=== PATIENT | male | born 1945 | race Caucasian/White ===

== ENCOUNTER 2017-02-15 07:38 | Inpatient (IN) | payer MEDICARE ==
[~2017-02-15] VITALS: Ht 177.8 cm; Wt 57.6 kg
--- NOTE | ~2017-02-15 | PR ---
[place], [place] PROGRESS NOTE NAME: KAVITHA MICHAUD [facility] #: [id number] UNIT #: [id number] ROOM: 515 DOCTOR: FLYNN RiveraALEXA BIRTHDATE: [birth year] DOS: 02/16/2017 WOUND CARE PROGRESS NOTE SUBJECTIVE: The patient reports no acute events overnight. He did have some discomfort of his left heel last night, post-debridement had to receive the pain pill, but he essentially does not have any pain in his heel today. He does, however, have a significant ankle pain and knee pain which is chronic and has not really changed in any way. No fevers or chills are noted. His vitals are stable; temperature is 97.5, pulse is 64, respirations 18, blood pressure is 124/70. The patient is his heel right on the bed. I did explain to him yesterday about the fact that we need to try to keep pressure off of this, but yet he has his heel left sitting in the chair across the room. He is in the middle of completing a bone scan, there are no reports pending. The dressing was removed. The wound looks essentially same. There still is some necrotic tissue in the base of the wound. The erythema that was around the wound yesterday in the foot has definitely improved from today, the swelling has gone down quite a bit and there is really no pain or discomfort or purulence. There is no odor present. Labs today show white count of 5.9, platelets of 254. ESR is only 27. He did not have his bone scan read yet. He did have a lower extremity ultrasound, which was read and is definitely showing femoropopliteal disease. He does have some flow in the posterior tibial artery and dorsalis pedis. They suggested to do a CT angiogram for better information. ASSESSMENT AND PLAN: Diabetic foot ulcer of the left heel with peripheral vascular disease. We will go ahead and order the CT angiogram as suggested per Radiology for further definition of the vascular status. In the meantime, we are waiting for the bone scan results to come back. Hopefully, there is no osteomyelitis. He should follow up in Wound Care for further wound care. If he has significant vascular disease on his CT angiogram, we way want to recommend a second opinion from another vascular surgeon. In the meantime, we will continue with TheraHoney and Bactroban; however, if we do not see much improvement in the wound base, I may want to consider changing to Santyl. The patient should follow up in the Wound Clinic once medically stable. [place], [place] PROGRESS NOTE NAME: KAVITHA MICHAUD UNIT #: [id number] ROOM: [facility] DOCTOR: ALEXA PRUETT M.D. BIRTHDATE: [birth year] ALEXA PRUETT MD CM:MARIA LUISA 01 02 ALEXA PRUETT M.D. 02/16/172302 interface
--- NOTE | ~2017-02-15 | CON ---
[place], [place] REPORT OF CONSULTATION NAME: KAVITHA MICHAUD [facility] #: [id number] UNIT #: [id number] ROOM: 515 DOCTOR: FLYNN RiveraALEXA BIRTHDATE: [birth year] DOS: 02/15/2017 HISTORY OF PRESENT ILLNESS: This is a 71-year-old male who presented to the Emergency Room Department for a diabetic foot ulcer. He was sent over by his PCP secondary to concern of possible infection. Apparently, the patient noticed 2 separate areas in the bottom of his foot that started approximately 2 weeks ago. Initially was just a dark black spot according to the patient and the family and then that look like there was a blister. The patient attempted to pop the blister on his own. However, the area just apparently got bigger. It really has not draining anything. He and his have been putting bag balm on the wound and keeping it covered. He was seen today by his PCP and sent over to the ER for concern of possible infection. PAST MEDICAL HISTORY: Significant for the following: He has had a history of abnormal EKG, coronary artery disease, diabetes mellitus, hypertension, hyperlipidemia, ischemic cardiomyopathy, neuropathy, history of osteomyelitis of the sternum, status post CABG. He has had a chronic wound of his chest, which did eventually heal, but it took a long time to heal. His diabetes is uncontrolled. He has restless legs syndrome and congestive heart failure. He is status post back surgery, heart valve surgery, right knee replacement. Apparently recent revascularization of the left lower extremity. He said he has had a bypass sounds like femoral, popliteal, but I do not have the records about that was just done approximately 6 months ago. He was seen by ____. According to the patient, the vascular surgeon was not pleased with the postoperative results. There were also reports patient that the vascular surgeon said that he would lose his foot someday. SOCIAL HISTORY: He is a former smoker. He has quit 14 years ago. However, he does chew tobacco. He denies any drug use. He drinks socially. FAMILY HISTORY: Unknown for the father. Mother of pneumonia. ALLERGIES: No known drug allergies. MEDICATIONS: His medications from home are aspirin 81 daily, furosemide 20 mg p.o. daily, gabapentin 83 25/100 p.o. t.i.d., insulin Lantus 20 units subq b.i.d., lispro b.i.d., lisinopril 2.5 p.o. daily, metoprolol 50 p.o. every 12 hours, potassium 20 mEq daily, ropinirole 3 mg p.o. t.i.d. and simvastatin 10 mg p.o. q.8h. REVIEW OF SYSTEMS: He does not really have any pain or discomfort with the left heel. He has significant neuropathy. He has a lot of problems with weakness in his legs and difficulty ambulating secondary to weakness as well as getting tired easily. Ankles giveout quite easily. He has to walk with a cane. He denies any chest pain, shortness of breath, nausea, vomiting or diarrhea. His sugars are up and down. When I asked specific numbers as to what he told me. However, we do know that he has had uncontrolled diabetes in the past. No fevers or chills are noted. PHYSICAL EXAMINATION: [place], [place] REPORT OF CONSULTATION NAME: KAVITHA MICHAUD UNIT #: [id number] ROOM: [facility] DOCTOR: ALEXA PRUETT M.D. BIRTHDATE: [birth year] VITAL SIGNS: Stable. Temperature is 97.5, pulse 66, respirations 18, blood pressure is 179/81. GENERAL: This is an elderly male, quite thin. Appears about his stated age, in no acute distress. Oropharynx is clear. HEENT: Extraocular movements are intact. Sclerae are anicteric. LUNGS: Clear to auscultation. CARDIOVASCULAR: S1, S2 regular rate and rhythm. ABDOMEN: Soft and nontender. EXTREMITIES: He has really no edema and no calf tenderness, so he has a two wounds located on the left heel, one is more in the medial aspect of the heel and one is more on the lateral aspect of the heel on the plantar lateral surface. He does have positive posterior tibial pulse, but it was somewhat difficult to find. I did not feel the dorsalis pedis. His toes are slightly cool. There is good capillary refill. He has two wounds that are located on the heel as stated above. There is a large amount of devitalized tissue and it does appear that there is communication between these 2 separate areas. The length estimation by me would be approximately 2.5-3 in length x 4.8 x 0.1 cm. There is large amount of necrotic tissue, fibrin slough is present in it. There is a yellow soft fibrin slough and large amount of devitalized epidermidis just hanging there. There is some redness associated with the foot, it is slightly pink in comparison to the right foot and it is not overtly tender and there is no purulence. LABORATORY DATA: Show white count of 6.5, a hemoglobin of 11, platelets of 263, neutrophils are 77%. Chem-7 shows a sodium of 137, potassium 4.7, BUN 15, creatinine 0.74, glucose was 155. LFTs are normal, an albumin is 3.5. X-ray was done, which shows a generalized low bone mineral density, vascular calcification, soft tissue swelling and superficial wound noted on the plantar suffers of the left heel. No bony erosion and no foreign bodies appreciable. Due to the presence of devitalized tissue. A debridement was recommended. The patient was agreeable to this. The area was cleansed, prepped with Cetacaine spray. Devitalized tissue was removed with forceps, scissors and a curette as well as a scalpel. There is really very minimal bleeding, it was only devitalized tissue and that was removed. This was a selective only minimal bleeding as stated above. Post-debridement measurements are 3.5 x 6 cm approximately by 0.1 to 0.15 in depth, although there was really no purulence or exudate to culture, so culture was not obtained today. ASSESSMENT AND PLAN: Diabetic foot ulcer, unstageable in a patient with poorly controlled diabetes and vascular disease. We will go ahead and repeat the arterial Dopplers. He did have Dopplers done a year ago. This was prior to the bypass. ABIs were fairly decent 0.88 on the left, 0.92 on the right. There was an area of significant stenosis seen at the popliteal trifurcation on the left, but major runoff vessels remains patent to the ankles and both the legs, so that was the impression, however, that was prior to him getting revascularize. So, in any case, we will go ahead and obtain the repeat arterial ultrasound at this time. We will go ahead and use TheraHoney and Bactroban for local wound care and use bulky dressing. Encourage offloading with pillows and heel lift devices as well as a post-surgical shoe. The patient is being treated with IV [place], [place] REPORT OF CONSULTATION NAME: KAVITHA MICHAUD UNIT #: [id number] ROOM: [facility] DOCTOR: FLYNN Rivera,ALEXA BIRTHDATE: [birth year] antibiotics empirically of order ESR and CRP for tomorrow as well as a hemoglobin A1c to see what his glucose control is. His x-ray did not show any osteomyelitis. The depth of the wound still is unknown. There is still some necrotic tissue present on the base of the wound. Post-debridement, so I would go ahead and order a bone scan as well for further evaluation. ALEXA PRUETT MD CM:CONSTR:REPORT OF CONSULTATION 1643 02/16/17 1514 interface
[~2017-02-15 07:38] MED LIST: ASPIRIN81 M1 PO; AVPAK AZITHROM250 MG PO; DIFLUCAN100 MG PO; FUROSEMIDE40 MG PO; GABAPENTIN300 MG PO; GUAIFENESIN600 MG PO; HUMALOG100 U/ML SC; K-TAB20 MEQ PO; LANTUS100 U/ML SC; LISINOPRIL10 MG; LISINOPRIL5 MG PO; LOPRESSOR50 M1 PO; LOVASTATIN20 MG PO; MOBIC15 MG; NEURONTIN300 MG PO; PRILOSEC20 MG PO; REQUIP3 M1 PO; REQUIP3 MG; SIMVASTATIN10 MG PO; TOPROL XL50 M1 PO; ZESTRIL20 MG PO
[2017-02-15 07:47] VITALS: BP 154/71
[2017-02-15 08:25] LABS: BASO % 0.3 % (0.0-1.0); EOS # 0.2 10*3/uL (0.0-0.4); EOS % 2.9 % (1.0-4.0); HEMATOCRIT 34.8 % (42.0-52.0); HEMOGLOBIN 11.1 g/dl (14.0-18.0); LYMPH # 0.8 10*3/uL (1.3-4.4); LYMPH % 12.8 % (27.0-41.0); MEAN CORPUSCULAR HGB 28.4 pg (27.0-31.0); MEAN CORPUSCULAR HGB CONC 31.9 g/dl (33.0-37.0); MEAN PLATELET VOLUME 9.8 fl (9.6-12.3); MONO # 0.4 10*3/uL (0.1-1.0); MONO % 6.6 % (3.0-9.0); NEUT % 77.1 % (47.0-73.0); PLATELET COUNT AUTOMATED 263 10*3/uL (130-400); RED BLOOD COUNT 3.91 10*6/uL (4.50-5.90); RED CELL DISTRI WIDTH 12.6 % (0-14.5); WHITE BLOOD COUNT 6.5 10*3/uL (4.8-10.8)
[2017-02-15 08:40] LABS: ALBUMIN 3.5 gm/dl (3.1-4.5); ALKALINE PHOSPHATASE 114 U/L (45-117); BILIRUBIN, TOTAL 0.3 mg/dl (0.2-1.0); BUN 15 mg/dl (7-24); CARBON DIOXIDE 30 mmol/L (21-32); CHLORIDE 103 mmol/L (98-107); EST GLOM FILT AFRICAN AMERICAN > 60 ml/min; GLUCOSE 155 mg/dL (65-99); POTASSIUM 4.7 mmol/L (3.5-5.1); SGOT/AST 16 IU/L (3-35); SGPT/ALT 15 U/L (12-78); SODIUM 137 mmol/L (136-145); TOTAL PROTEIN 7.1 gm/dL (6.4-8.2)
[2017-02-15 10:49] VITALS: BP 155/68
[2017-02-15] MEDS ORDERED: FUROSEMIDE20 M1 PO (11:04)
[2017-02-15] MEDS ORDERED: LISINOPRIL2.5 MG PO (11:05)
[2017-02-15] MEDS ORDERED: LANTUS SOL100 UNIT/1 SC (11:16)
[2017-02-15 12:00] VITALS: BP 179/81
[2017-02-15 16:00] VITALS: BP 176/84
[2017-02-15 20:00] VITALS: BP 120/66
[2017-02-16] VITALS: BP 140/59
[2017-02-16 05:36] LABS: BUN 15 mg/dl (7-24); CARBON DIOXIDE 29 mmol/L (21-32); CHLORIDE 102 mmol/L (98-107); EST GLOM FILT AFRICAN AMERICAN > 60 ml/min; GLUCOSE 338 mg/dL (65-99); PHOSPHOROUS 3.2 mg/dL (2.5-4.9); POTASSIUM 5.5 mmol/L (3.5-5.1); SODIUM 135 mmol/L (136-145)
[2017-02-16 06:05] LABS: BASO # 0.1 10*3/uL (0.0-0.1); EOS # 0.2 10*3/uL (0.0-0.4); HEMOGLOBIN 10.6 g/dl (14.0-18.0); LYMPH # 0.8 10*3/uL (1.3-4.4); LYMPH % 13.1 % (27.0-41.0); MEAN CELL VOLUME 87.5 fl (80.0-94.0); MEAN CORPUSCULAR HGB 28.1 pg (27.0-31.0); MEAN CORPUSCULAR HGB CONC 32.1 g/dl (33.0-37.0); MEAN PLATELET VOLUME 10.4 fl (9.6-12.3); MONO # 0.4 10*3/uL (0.1-1.0); MONO % 6.2 % (3.0-9.0); NEUT # 4.5 10*3/uL (2.3-7.9); NEUT % 75.4 % (47.0-73.0); PLATELET COUNT AUTOMATED 254 10*3/uL (130-400); RED BLOOD COUNT 3.77 10*6/uL (4.50-5.90); RED CELL DISTRI WIDTH 12.4 % (0-14.5); WHITE BLOOD COUNT 5.9 10*3/uL (4.8-10.8)
[2017-02-16 06:36] LABS: HEMOGLOBIN A1c 10.1 % (4.8-5.6)
[2017-02-16 07:29] LABS: FOLIC ACID 12.02 ng/mL (>5.38); VITAMIN D, 25-HYDROXY 25.1 ng/mL (30-100)
[2017-02-16 08:00] VITALS: BP 126/63
[2017-02-16 12:00] VITALS: BP 132/64
[2017-02-16 16:00] VITALS: BP 124/70
[2017-02-16] MEDS ORDERED: Vitamin D PO (16:49)
[2017-02-16] MEDS ORDERED: DOXYCYCLINE100 M3 PO (16:49)
[2017-02-16] MEDS ORDERED: Bactroban Oint22 GM T (16:49)
== END 2017-02-16 20:27 | disposition home or self-care (01) | DRG 623 ==
LOC: ED 07:38 → EDHOLD 10:23 → 5E 10:23
PROVIDERS: Emergency Medicine; Internal Medicine
PROC: 0JBR0ZZ Excision of Left Foot Subcutaneous Tissue and Fascia, Open Approach (ICD-10-PCS; principal; 2017-02-15)
DX: E11.621 Type 2 diabetes mellitus with foot ulcer (principal); L03.116 Cellulitis of left lower limb; L97.529 Non-pressure chronic ulcer of other part of left foot with unspecified severity; I11.0 Hypertensive heart disease with heart failure; I50.22 Chronic systolic (congestive) heart failure; E11.40 Type 2 diabetes mellitus with diabetic neuropathy, unspecified; E11.51 Type 2 diabetes mellitus with diabetic peripheral angiopathy without gangrene; I25.5 Ischemic cardiomyopathy; D64.9 Anemia, unspecified; I25.10 Atherosclerotic heart disease of native coronary artery without angina pectoris; E55.9 Vitamin D deficiency, unspecified; E11.65 Type 2 diabetes mellitus with hyperglycemia; G25.81 Restless legs syndrome; E78.5 Hyperlipidemia, unspecified; Z96.651 Presence of right artificial knee joint; Z87.891 Personal history of nicotine dependence; Z79.4 Long term (current) use of insulin; Z79.82 Long term (current) use of aspirin; Z79.899 Other long term (current) drug therapy; Z95.2 Presence of prosthetic heart valve; Z95.1 Presence of aortocoronary bypass graft; Z83.6 Family history of other diseases of the respiratory system

== ENCOUNTER → 2017-02-21 | Outpatient (CLI) | payer MEDICARE ==
[~2017-02-21] MED LIST changes: +Bactroban Oint22 GM T; +DOXYCYCLINE100 M3 PO; +FUROSEMIDE20 M1 PO; +LANTUS SOL100 UNIT/1 SC; +LISINOPRIL2.5 MG PO; +Vitamin D PO
--- NOTE | ~2017-02-21 | PR ---
[place], [place] PROGRESS NOTE NAME: KAVITHA MICHAUD [facility] #: [id number] UNIT #: [id number] ROOM: DOCTOR: FLYNN RiveraALEXA BIRTHDATE: [birth year] DOS: 02/21/2017 CHIEF COMPLAINT: The patient comes in for an ulcer of his left heel. HISTORY OF PRESENT ILLNESS: This is a 71-year-old male with poorly-controlled diabetes who has had a diabetic foot ulcer for approximately 3 weeks now. He was actually admitted last week for a possible infection that was worked up while he was here. He did have a large amount of necrotic tissue on his left heel, it was not dry eschar, but soft fibrin slough. He underwent a bone scan, which was essentially negative. He also underwent arterial studies. He is status post revascularization of the left leg. He had a recent bypass and was supposed to follow up with his vascular surgeon within 6 months' time. He does report that the vascular surgeon was not pleased with the results. Our studies did show some flow to the foot; however, there was monophasic waveforms and severe vascular disease noted. The patient comes in for followup in the Wound Care Clinic. He has been using TheraHoney to the open areas as well as Bactroban ointment. He reports less pain overall than when he had in the hospital. He was sent home with 3 days of oral antibiotics. He was treated with IV antibiotics while he was here for a possible infection. He says his sugars remain high at times and very variable, which is chronic and has not really changed in anyway. His hemoglobin A1c remains fairly uncontrolled with a hemoglobin A1c of 10.1. He does not smoke; however, he chew tobacco on occasion. He has no other specific complaints. No fevers or chills, nausea, vomiting or problems with the dressings. He is using a postop shoe at home, but came in wearing regular tennis shoes today. PHYSICAL EXAMINATION: VITAL SIGNS: Temperature is 98.2, pulse of 78, respirations 18, blood pressure is 146/66. The wound is measuring 3.4 x 4.1 x 0.1. It actually does seem somewhat improved from the last time I saw it. There is still a large amount of necrotic tissue, fibrin slough mostly that is soft. There is no dry eschar at this point. There is no purulence or tenderness or cellulitis noted. A selective debridement was done today. The tissue removed was devitalized tissue only. This occurred with scalpel, forceps, and a curette. There was a moderate amount of bleeding that was controlled with pressure and silver nitrate. Post-debridement measurements are 3.5 x 5 x 0.2. The patient tolerated the debridement well. Cetacaine spray was used for topical anesthesia. ASSESSMENT AND PLAN: Chronic diabetic foot ulcer. I would still classify it is as unstageable at this point since we cannot really see the base yet. There was no evidence of osteomyelitis on imaging studies. At this point, he does have severe peripheral vascular disease. I recommend that he follow up with Vascular. He states he will go ahead and call ____. I would also like to try and obtain any records from his office if possible. In the meantime, we will continue with wound care. I would like to switch to Santyl if his insurance will approve it. If not, we can stick with TheraHoney, but I would like to try the Santyl first and then utilize Bactroban as well as a bulky dressing, a postop shoe. The next time he is here we can see if we can set him up with the home care coordinator to see if we can find him a better more stable postop shoe [place], [place] PROGRESS NOTE NAME: KAVITHA MICHAUD [facility] #: [id number] UNIT #: [id number] ROOM: DOCTOR: ALEXA PRUETT M.D. BIRTHDATE: [birth year] to try. ALEXA PRUETT MD CM:MARIA LUISA 11 9 ALEXA PRUETT M.D. 02/22/17209 interface
== END | disposition home or self-care (01) ==
LOC: WOUNDCARE 10:02
DX: E11.621 Type 2 diabetes mellitus with foot ulcer (principal); L97.421 Non-pressure chronic ulcer of left heel and midfoot limited to breakdown of skin; E11.51 Type 2 diabetes mellitus with diabetic peripheral angiopathy without gangrene

== ENCOUNTER → 2017-02-28 | Outpatient (CLI) | payer MEDICARE ==
--- NOTE | ~2017-02-28 | PR ---
[place], [place] PROGRESS NOTE NAME: KAVITHA MICHAUD [facility] #: [id number] UNIT #: [id number] ROOM: DOCTOR: FLYNN RiveraALEXA BIRTHDATE: [birth year] DOS: 02/28/2017 CHIEF COMPLAINT: Followup of diabetic foot ulcer. HISTORY OF PRESENT ILLNESS: A 71-year-old male with uncontrolled diabetes and a chronic ulcer of the left heel for approximately 4 weeks now. He has been coming to the Wound Clinic for 1 week now. He was seen last week and started on Santyl and Bactroban. He was able to get that midweek and has been using it daily. No fevers or chills. He only has pain or discomfort with the heel when he walks on it. Otherwise, no change in pain or discomfort. He has had revascularization done on the left leg. However, we still have not gotten the reports from the surgeon, so are awaiting medical records regarding previous vascular procedures. He does have known vascular disease as well. No other specific complaints are noted. PHYSICAL EXAMINATION: VITAL SIGNS: Temperature is 98.2, pulse is 74, respirations 18, and blood pressure is 120/70. EXTREMITIES: The wound is measuring 3.2 x 4.8 x 0.1, it is definitely is much improved overall clinically in appearance from last week. The measurements seem to be off a little bit. However, overall it does look bisque cleaner and smaller. No sign of infection and there is still some moderate fibrin slough present in the base of the wound. A selective debridement was done to remove fibrin slough and hyperkeratotic tissue around the wound. Forceps scissors and a curette was utilized. There was minimal bleeding, controlled with pressure. Post-debridement measurements are as follows, 2.2 x 4.8 x 0.1. The patient tolerated the procedure well. Cetacaine spray was used for topical anesthesia. Timeout was conducted prior to the start of the procedure. ASSESSMENT AND PLAN: Chronic diabetic foot ulcer of the left heel, which clinically seems to be improving. We will go ahead and continue with the Santyl and Bactroban for now. Hopefully, we will be able to change to a collagen in the near future, but he definitely still needs collagenase at this point. We will set him up for diabetic shoes and offloading boot for diabetic foot ulcer. Hopefully, this can be arranged next week. He does have vascular disease. I did recommend to try to refer him to a different vascular specialist as he states that he was told by his previous doctor that he would need an amputation at some point and he was not happy the the vascular surgeon's recommendations, so I did suggest to try to get a second opinion, but the patient wants to discuss this with his primary care physician. In the meantime, we will continue with the current dressing and follow up in one week. [place], [place] PROGRESS NOTE [facility]UD [id number] UNIT #: [id number] ROOM: DOCTOR: ALEXA PRUETT M.D. BIRTHDATE: [birth year] ALEXA PRUETT MD CM:MARIA LUISA 1030 1 ALEXA PRUETT M.D. 03/01/17 0432 interface
== END ==
LOC: WOUNDCARE 03:41
DX: E11.621 Type 2 diabetes mellitus with foot ulcer (principal); L97.422 Non-pressure chronic ulcer of left heel and midfoot with fat layer exposed; E11.51 Type 2 diabetes mellitus with diabetic peripheral angiopathy without gangrene

== ENCOUNTER → 2017-03-08 | Outpatient (CLI) | payer MEDICARE ==
--- NOTE | ~2017-03-08 | PR ---
[place], [place] PROGRESS NOTE NAME: KAVITHA MICHAUD [facility] #: [id number] UNIT #: [id number] ROOM: DOCTOR: FLYNN RiveraALEXA BIRTHDATE: [birth year] DOS: 03/08/2017 SUBJECTIVE: The patient comes in for a wound care visit. CHIEF COMPLAINT: Ulcer of his heel. HISTORY OF PRESENT ILLNESS: This is a 71-year-old male with poorly controlled diabetes, who comes in for wound care visit. He has a chronic ulcer of his left heel that he has had for approximately 5 weeks now. He has been coming to the wound clinic for 2 weeks. We have been using Santyl and Bactroban for wound care. He has vascular disease, has had revascularization but continues to have evidence of femoropopliteal disease on arterial Dopplers. I have recommended for him to follow up with Vascular; however, he wants to discuss this with his PCP whom he will see today. He has seen Dr. Moody in the past, has procedures done by him and we still do not have the reports from their office yet. In any case, the patient comes in stating that he thinks the wound is looking better. His helps him with his dressings; however, he does state that he has been trying to walk on the outside of his foot on the forefoot and it seems to be causing some pain and discomfort when he is walking. Otherwise, he uses his postop shoes trying to put less pressure on his heel. OBJECTIVE: GENERAL: No fevers or chills are noted. VITAL SIGNS: Temperature is 97.8, pulse is 72, respirations are 18 and blood pressure is 142/78. SKIN: The wound is measuring 3.2 x 4.5 x 0.1. It looks much wheat cleaner. There is still fibrin and slough present, but overall it is definitely looking much improved. There is no surrounding cellulitis, odor or purulence to suggest infection. There is some maceration noted around the periwound area. A debridement was done, this is selective, to remove fibrin and slough. This was accomplished with a curette, forceps and scissors. There was minimal bleeding, controlled with pressure. Post-debridement measurements are as follows 3.2 x 4.6 x 0.15. There is still fibrin and slough present in the base of the wound, but overall it is looking much better. Cetacaine spray was used for topical anesthesia. Timeout was conducted prior to the start of the procedure. ASSESSMENT AND PLAN: Diabetic foot ulcer of the left heel, complicated by vascular disease. I would like to continue with the Santyl and use Maxorb to help dry it up a little bit more as there is maceration noted. He is to change the dressing every day. Skin prep will be applied to the periwound. I would still like him to see Vascular; however, he wants to discuss this with his PCP. I did suggest for him to see an tear down worker regarding an offloading boot and he wishes to talk to his PCP about diabetic shoes. Followup is in one week. [place], [place] PROGRESS NOTE NAME: KEILYKAVITHA Pedro [facility] #: [id number] UNIT #: [id number] ROOM: DOCTOR: ALEXA PRUETT M.D. BIRTHDATE: [birth year] ALEXA PRUETT MD CM:MARIA LUISA [id number] ALEXA PRUETT M.D. 03/09/17 1320 interface
== END | disposition home or self-care (01) ==
LOC: WOUNDCARE 03:13
DX: E11.621 Type 2 diabetes mellitus with foot ulcer (principal); L97.422 Non-pressure chronic ulcer of left heel and midfoot with fat layer exposed; E11.51 Type 2 diabetes mellitus with diabetic peripheral angiopathy without gangrene

== ENCOUNTER → 2017-03-14 | Outpatient (CLI) | payer MEDICARE ==
--- NOTE | ~2017-03-14 | PR ---
[place], [place] PROGRESS NOTE NAME: KAVITHA MICHAUD [facility] #: [id number] UNIT #: [id number] ROOM: DOCTOR: FLYNN RiveraALEXA BIRTHDATE: [birth year] DOS: 03/14/2017 CHIEF COMPLAINT: Followup of heel ulcer. HISTORY OF PRESENT ILLNESS: This is a 71-year-old male with poorly controlled diabetes, who comes to the Wound Clinic for followup wound care visit. He had an unstageable ulcer of his left heel that was present for 6-7 weeks now. He has been coming to the wound clinic. We have been using Santyl to the wound base. He has vascular disease and I had recommended for him to follow up with his vascular specialist due to continued femoropopliteal disease that is hemodynamically significant. He is status post revascularization of the left leg. However, the patient says he really does not want to see vascular doctor this time. He does not want any kind of procedures to be done on his left leg. He comes in today stating that he has some discomfort of the leg and he has chronic pain of his left leg he says but he is walking quite a bit on his foot at home. I did advise him to try to stay off of it as much as possible. His helps him with the wound care. He has no other specific complaints. No fevers or chills. OBJECTIVE: VITAL SIGNS: Stable. Temperature is 97.6, pulse 64, respirations 18, blood pressure is 132/64. The wound is definitely measuring smaller at 2.7 cm x 4.6 cm x 0.1 cm. There is much less fibrin and slough overall. It still has some fibrin slough, but overall it is definitely coke still cleaner. There is no sign of infection. There is no purulence or tenderness. There is still some devitalized callus around the wound, but overall it is definitely looking better. Debridement was done to remove fibrin, slough and subcutaneous tissue. There was minimal bleeding that was controlled with pressure, forceps, scissors, and a curette were utilized. Cetacaine spray was used for topical anesthesia. Post-debridement measurements are 2 cm x 4.7 cm x 0.2 cm. ASSESSMENT AND PLAN: Left heel ulceration that is definitely stable and seems to be improving. I would like to continue the Santyl. I am hoping for at least 1 more week and then hopefully by then will have it changed to a collagen dressing. He still some maceration around it, but I would like to make sure that they were cutting the Maxorb to fit the wound and not just laying it over that because that would explain why it continues to be macerated and also have him try to keep off of it as much as possible. He does have a postop shoe for this. The patient was asking about hyperbaric oxygen treatment, but at this time he does not meet criteria to go in to the chamber. Followup is in one week. [place], [place] PROGRESS NOTE [facility]: [facility]UD [facility] [id number] UNIT #: [id number] ROOM: DOCTOR: ALEXA PRUETT M.D. BIRTHDATE: [birth year] ALEXA PRUETT MD CM:MARIA LUISA 1018 6 ALEXA PRUETT M.D. 03/15/17516 interface
== END | disposition home or self-care (01) ==
LOC: WOUNDCARE 01:51
DX: E11.621 Type 2 diabetes mellitus with foot ulcer (principal); L97.422 Non-pressure chronic ulcer of left heel and midfoot with fat layer exposed; E11.51 Type 2 diabetes mellitus with diabetic peripheral angiopathy without gangrene; L84 Corns and callosities

== ENCOUNTER → 2017-03-23 | Outpatient (CLI) | payer MEDICARE | END | disposition home or self-care (01) | LOC: WOUNDCARE 02:01 | DX: E11.621 Type 2 diabetes mellitus with foot ulcer (principal); L97.422 Non-pressure chronic ulcer of left heel and midfoot with fat layer exposed; E11.51 Type 2 diabetes mellitus with diabetic peripheral angiopathy without gangrene; I11.0 Hypertensive heart disease with heart failure; I50.9 Heart failure, unspecified; I25.10 Atherosclerotic heart disease of native coronary artery without angina pectoris; Z87.891 Personal history of nicotine dependence ==

== ENCOUNTER → 2017-04-01 | Outpatient (CLI) | payer MEDICARE | END | disposition home or self-care (01) | LOC: WOUNDCARE 03-29 14:29 | DX: E11.621 Type 2 diabetes mellitus with foot ulcer (principal); L97.422 Non-pressure chronic ulcer of left heel and midfoot with fat layer exposed; E11.51 Type 2 diabetes mellitus with diabetic peripheral angiopathy without gangrene; I25.10 Atherosclerotic heart disease of native coronary artery without angina pectoris; I11.0 Hypertensive heart disease with heart failure; I50.9 Heart failure, unspecified; Z87.891 Personal history of nicotine dependence ==

== ENCOUNTER → 2017-04-13 | Outpatient (CLI) | payer MEDICARE | END | disposition home or self-care (01) | LOC: WOUNDCARE 03:58 | DX: E11.621 Type 2 diabetes mellitus with foot ulcer (principal); L97.421 Non-pressure chronic ulcer of left heel and midfoot limited to breakdown of skin; E11.51 Type 2 diabetes mellitus with diabetic peripheral angiopathy without gangrene; I11.0 Hypertensive heart disease with heart failure; I50.9 Heart failure, unspecified; I25.10 Atherosclerotic heart disease of native coronary artery without angina pectoris; Z87.891 Personal history of nicotine dependence ==

== ENCOUNTER → 2017-04-20 | Outpatient (CLI) | payer MEDICARE | END | disposition home or self-care (01) | LOC: WOUNDCARE 01:07 | DX: E11.621 Type 2 diabetes mellitus with foot ulcer (principal); L97.422 Non-pressure chronic ulcer of left heel and midfoot with fat layer exposed; E11.51 Type 2 diabetes mellitus with diabetic peripheral angiopathy without gangrene; I11.0 Hypertensive heart disease with heart failure; I50.9 Heart failure, unspecified; I25.10 Atherosclerotic heart disease of native coronary artery without angina pectoris; Z87.891 Personal history of nicotine dependence ==

== ENCOUNTER → 2017-04-27 | Outpatient (CLI) | payer MEDICARE | END | disposition home or self-care (01) | LOC: WOUNDCARE 04:33 | DX: E11.621 Type 2 diabetes mellitus with foot ulcer (principal); L97.422 Non-pressure chronic ulcer of left heel and midfoot with fat layer exposed; E11.51 Type 2 diabetes mellitus with diabetic peripheral angiopathy without gangrene; I11.0 Hypertensive heart disease with heart failure; I50.9 Heart failure, unspecified; I25.10 Atherosclerotic heart disease of native coronary artery without angina pectoris; Z87.891 Personal history of nicotine dependence ==

== ENCOUNTER → 2017-05-11 | Outpatient (CLI) | payer MEDICARE | END | disposition home or self-care (01) | LOC: WOUNDCARE 04:25 | DX: E11.621 Type 2 diabetes mellitus with foot ulcer (principal); L97.422 Non-pressure chronic ulcer of left heel and midfoot with fat layer exposed; E11.51 Type 2 diabetes mellitus with diabetic peripheral angiopathy without gangrene; I11.0 Hypertensive heart disease with heart failure; I50.9 Heart failure, unspecified; I25.10 Atherosclerotic heart disease of native coronary artery without angina pectoris; Z87.891 Personal history of nicotine dependence ==

== ENCOUNTER → 2017-05-18 | Outpatient (CLI) | payer MEDICARE | END | disposition home or self-care (01) | LOC: WOUNDCARE 01:04 | DX: E11.621 Type 2 diabetes mellitus with foot ulcer (principal); L97.422 Non-pressure chronic ulcer of left heel and midfoot with fat layer exposed; E11.51 Type 2 diabetes mellitus with diabetic peripheral angiopathy without gangrene; I11.0 Hypertensive heart disease with heart failure; I50.9 Heart failure, unspecified; I25.10 Atherosclerotic heart disease of native coronary artery without angina pectoris; Z87.891 Personal history of nicotine dependence ==

== ENCOUNTER → 2017-05-23 | Outpatient (CLI) | payer MEDICARE | END | disposition home or self-care (01) | LOC: RAD 14:13 | DX: J90 Pleural effusion, not elsewhere classified (principal); J44.9 Chronic obstructive pulmonary disease, unspecified; J84.10 Pulmonary fibrosis, unspecified; I25.10 Atherosclerotic heart disease of native coronary artery without angina pectoris; I10 Essential (primary) hypertension; J18.9 Pneumonia, unspecified organism; Z87.891 Personal history of nicotine dependence; Z95.1 Presence of aortocoronary bypass graft ==

== ENCOUNTER → 2017-05-25 | Outpatient (CLI) | payer MEDICARE | END | disposition home or self-care (01) | LOC: WOUNDCARE 02:17 | DX: E11.621 Type 2 diabetes mellitus with foot ulcer (principal); L97.422 Non-pressure chronic ulcer of left heel and midfoot with fat layer exposed; E11.51 Type 2 diabetes mellitus with diabetic peripheral angiopathy without gangrene; Z87.891 Personal history of nicotine dependence ==

== ENCOUNTER → 2017-06-03 | Outpatient (CLI) | payer MEDICARE | END | disposition home or self-care (01) | LOC: WOUNDCARE 02:14 | DX: E11.621 Type 2 diabetes mellitus with foot ulcer (principal); L97.422 Non-pressure chronic ulcer of left heel and midfoot with fat layer exposed; E11.51 Type 2 diabetes mellitus with diabetic peripheral angiopathy without gangrene; I25.10 Atherosclerotic heart disease of native coronary artery without angina pectoris; I11.0 Hypertensive heart disease with heart failure; I50.9 Heart failure, unspecified; Z87.891 Personal history of nicotine dependence ==

== ENCOUNTER → 2017-06-08 | Outpatient (CLI) | payer MEDICARE | END | disposition home or self-care (01) | LOC: WOUNDCARE 02:25 | DX: E11.621 Type 2 diabetes mellitus with foot ulcer (principal); L97.422 Non-pressure chronic ulcer of left heel and midfoot with fat layer exposed; E11.51 Type 2 diabetes mellitus with diabetic peripheral angiopathy without gangrene; I25.10 Atherosclerotic heart disease of native coronary artery without angina pectoris; I11.0 Hypertensive heart disease with heart failure; I50.9 Heart failure, unspecified; Z87.891 Personal history of nicotine dependence ==

== ENCOUNTER → 2017-06-15 | Outpatient (CLI) | payer MEDICARE | END | disposition home or self-care (01) | LOC: WOUNDCARE 01:52 | DX: E11.621 Type 2 diabetes mellitus with foot ulcer (principal); L97.422 Non-pressure chronic ulcer of left heel and midfoot with fat layer exposed; E11.51 Type 2 diabetes mellitus with diabetic peripheral angiopathy without gangrene; I11.0 Hypertensive heart disease with heart failure; I50.9 Heart failure, unspecified; I25.10 Atherosclerotic heart disease of native coronary artery without angina pectoris; Z87.891 Personal history of nicotine dependence ==

== ENCOUNTER → 2017-07-13 | Outpatient (CLI) | payer MEDICARE | END | disposition home or self-care (01) | LOC: WOUNDCARE 02:16 | DX: E11.621 Type 2 diabetes mellitus with foot ulcer (principal); L97.422 Non-pressure chronic ulcer of left heel and midfoot with fat layer exposed; E11.51 Type 2 diabetes mellitus with diabetic peripheral angiopathy without gangrene; I11.0 Hypertensive heart disease with heart failure; I50.9 Heart failure, unspecified; I25.10 Atherosclerotic heart disease of native coronary artery without angina pectoris; Z87.891 Personal history of nicotine dependence ==

== ENCOUNTER → 2017-07-20 | Outpatient (CLI) | payer MEDICARE | LOC: WOUNDCARE 01:49 | DX: E11.621 Type 2 diabetes mellitus with foot ulcer (principal); L97.422 Non-pressure chronic ulcer of left heel and midfoot with fat layer exposed; E11.51 Type 2 diabetes mellitus with diabetic peripheral angiopathy without gangrene; I11.0 Hypertensive heart disease with heart failure; I50.9 Heart failure, unspecified; I25.10 Atherosclerotic heart disease of native coronary artery without angina pectoris; Z87.891 Personal history of nicotine dependence ==

== ENCOUNTER → 2017-07-27 | Outpatient (CLI) | payer MEDICARE | END | disposition home or self-care (01) | LOC: WOUNDCARE 03:05 | DX: E11.621 Type 2 diabetes mellitus with foot ulcer (principal); L97.422 Non-pressure chronic ulcer of left heel and midfoot with fat layer exposed; E11.51 Type 2 diabetes mellitus with diabetic peripheral angiopathy without gangrene; I11.0 Hypertensive heart disease with heart failure; I50.9 Heart failure, unspecified; I25.10 Atherosclerotic heart disease of native coronary artery without angina pectoris; Z95.2 Presence of prosthetic heart valve; Z87.891 Personal history of nicotine dependence ==

== ENCOUNTER → 2017-08-03 | Outpatient (CLI) | payer MEDICARE | END | disposition home or self-care (01) | LOC: WOUNDCARE 00:46 | DX: E11.621 Type 2 diabetes mellitus with foot ulcer (principal); L97.422 Non-pressure chronic ulcer of left heel and midfoot with fat layer exposed; E11.51 Type 2 diabetes mellitus with diabetic peripheral angiopathy without gangrene; L84 Corns and callosities; I11.0 Hypertensive heart disease with heart failure; I50.9 Heart failure, unspecified; I25.10 Atherosclerotic heart disease of native coronary artery without angina pectoris; Z95.2 Presence of prosthetic heart valve; Z87.891 Personal history of nicotine dependence ==

== ENCOUNTER → 2017-08-17 | Outpatient (CLI) | payer MEDICARE | END | disposition home or self-care (01) | LOC: WOUNDCARE 01:02 | DX: E11.621 Type 2 diabetes mellitus with foot ulcer (principal); L97.422 Non-pressure chronic ulcer of left heel and midfoot with fat layer exposed; E11.51 Type 2 diabetes mellitus with diabetic peripheral angiopathy without gangrene; I11.0 Hypertensive heart disease with heart failure; I50.9 Heart failure, unspecified; I25.10 Atherosclerotic heart disease of native coronary artery without angina pectoris; Z95.2 Presence of prosthetic heart valve; Z87.891 Personal history of nicotine dependence ==

== ENCOUNTER → 2017-09-20 | Outpatient (CLI) | payer MEDICARE | END | disposition home or self-care (01) | LOC: RAD 07:48 | DX: M50.321 Other cervical disc degeneration at C4-C5 level (principal); M50.322 Other cervical disc degeneration at C5-C6 level; M50.922 Unspecified cervical disc disorder at C5-C6 level; M79.642 Pain in left hand ==

== ENCOUNTER → 2017-10-24 | Outpatient (CLI) | payer MEDICARE | END | disposition home or self-care (01) | LOC: WOUNDCARE 10:29 | DX: E11.621 Type 2 diabetes mellitus with foot ulcer (principal); L97.421 Non-pressure chronic ulcer of left heel and midfoot limited to breakdown of skin; I11.0 Hypertensive heart disease with heart failure; I50.9 Heart failure, unspecified; I25.10 Atherosclerotic heart disease of native coronary artery without angina pectoris; Z87.891 Personal history of nicotine dependence ==

== ENCOUNTER 2017-10-27 11:04 | Inpatient (IN) | payer MEDICARE ==
[~2017-10-27] VITALS: Ht 177.8 cm; Wt 65.8 kg
--- NOTE | ~2017-10-27 | CON ---
[place], [place] REPORT OF CONSULTATION NAME: KAVITHA MICHAUD [facility] #: [id number] UNIT #: [id number] ROOM: 515 DOCTOR: CRIS SIN DPM BIRTHDATE: [birth year] DOS: HISTORY OF PRESENT ILLNESS: This patient is seen as consulted for evaluation of a left heel ulcer. The patient saw Dr. Crabtree yesterday in the office and was found to have a full thickness abscess of the heel. This was incised and drained in the office and he was subsequently sent to the hospital for admission of the antibiotics. He states he does get some pain at times in the heel. He has a history of PAD and according to the patient, had a bypass done by Dr. Steven. Denies fever or chills at this time. PAST MEDICAL HISTORY: Positive for cardiovascular disease, diabetes mellitus, hypertension, hyperglycemia, hyperlipidemia, ischemic cardiomyopathy, neuropathy, history of diabetic foot ulcer, normocytic anemia, osteomyelitis of the sternum, PAD status post bypass, restless leg syndrome, CHF, vitamin D insufficiency. ALLERGIES: No known drug allergies. CURRENT MEDICATIONS: Vitamin D, K-Dur, Zestril, Lantus, Lasix, Lovenox, Protonix, vancomycin, Zocor, Requip, Toprol, hydrocodone, doxycycline, Neurontin. PHYSICAL EXAMINATION: Upon lower extremity physical examination, DP and PT pedal pulses are decreased. There is diminished hair growth. Skin is thin and shiny. Skin temperature is warm at the toes. Sensation is diminished in the forefoot bilaterally. Muscle strength appears full without any deficits. On the plantar posterior portion of the left heel, there appears to be what was probably previously a large blistered area full thickness with the resulting 2 ulcerations in the area. These wounds are full thickness with no purulent drainage or malodor at this time. Minimal localized edema and erythema. No fluctuance or signs of abscess. X-ray was negative for osteomyelitis. His arterial Doppler showed status post left distal superficial femoral posterior tibial graft is patent; however, elevated systolic velocities consistent with stenosis. ASSESSMENT: Peripheral artery disease status post bypass; diabetic ulcer, left heel with improving infection. PLAN: Consult is performed. Continue with local wound care to the area, continue with IV antibiotics. Continue offloading. No further surgery or procedures needed on the left heel. We will do wound care and antibiotics. The patient will most likely do well over the next few days to the point where he could be discharged. He will need to follow up with Dr. Steven upon discharge to evaluate the graft on the left lower extremity. Thank you for the opportunity to take part in care of this patient. [place], [place] REPORT OF CONSULTATION NAME: KAVITHA MICHAUD UNIT #: [id number] ROOM: [facility] DOCTOR: CRIS SIN DPM BIRTHDATE: [birth year] CRIS SIN DPM CM:CONSTR:REPORT OF CONSULTATION 1223 10/28/17 1654 interface
--- NOTE | ~2017-10-27 | PR ---
[place], [place] PROGRESS NOTE NAME: KAVITHA MICHAUD [facility] #: [id number] UNIT #: [id number] ROOM: 515 DOCTOR: SEVERO OG DPM BIRTHDATE: [birth year] DOS: 10/29/2017 SUBJECTIVE: The patient was seen for followup of post-abscess, left heel. The patient is having no pain to the area at this time. OBJECTIVE: Upon removal of the dressing, the post-abscess left heel has granulated well, dramatic improvement in 2 days from current treatment plan. No further signs of infection or abscess. The ulcerative site post incision and drainage is granulating significantly at this time without complication. I reviewed the radiographs myself and the initial radiographs revealed a report stating possible soft tissue gas noted, however, that clinically correlated with the large abscess site that I had opened at the office. The second radiograph set did indeed reveal no soft tissue gas noted. We see no clinical signs of osteomyelitis and the patient is healing very well at this time. Again, his vascular studies were abnormal and the patient is seeing Dr. Contreras on Tuesday. ASSESSMENT: Post-incision and drainage, left heel with diabetic ulceration. PLAN: Evaluation and management. Continue local wound care. The patient can be discharged from Podiatry standpoint. The patient is seeing Dr. Contreras on Tuesday for vascular consultation and I will follow with the patient at my office on . Home p.o. antibiotics per Infectious Disease and again the patient can be discharged from my standpoint. SVEERO OG DPM CM:PNTRANS [id number] SEVERO OG DPM 10/29/17 1058 interface
[2017-10-27 11:07] VITALS: BP 105/49
[2017-10-27 12:09] LABS: BASO % 0.4 % (0.0-1.0); EOS # 0.2 10*3/uL (0.0-0.4); HEMATOCRIT 38.4 % (42.0-52.0); HEMOGLOBIN 12.3 g/dl (14.0-18.0); LYMPH # 0.9 10*3/uL (1.3-4.4); LYMPH % 12.7 % (27.0-41.0); MEAN CELL VOLUME 87.3 fl (80.0-94.0); MEAN PLATELET VOLUME 11.4 fl (9.6-12.3); MONO # 0.5 10*3/uL (0.1-1.0); MONO % 7.3 % (3.0-9.0); NEUT # 5.7 10*3/uL (2.3-7.9); NEUT % 77.2 % (47.0-73.0); PLATELET COUNT AUTOMATED 245 10*3/uL (130-400); RED CELL DISTRI WIDTH 13.4 % (0-14.5); WHITE BLOOD COUNT 7.4 10*3/uL (4.8-10.8)
[2017-10-27 12:18] LABS: ACT PARTIAL THROMBO TIME 25.5 SECONDS (20.8-31.5); INTERNATIONAL NORM RATIO 0.9 (2.0-3.5)
[2017-10-27 12:23] LABS: ALBUMIN 3.6 gm/dl (3.1-4.5); ALKALINE PHOSPHATASE 136 U/L (45-117); BUN 20 mg/dl (7-24); CHLORIDE 102 mmol/L (98-107); CREATININE 0.95 mg/dL (0.70-1.30); POTASSIUM 4.1 mmol/L (3.5-5.1); SGOT/AST 16 IU/L (3-35); SGPT/ALT 18 U/L (12-78); SODIUM 139 mmol/L (136-145); TOTAL PROTEIN 7.2 gm/dL (6.4-8.2)
[2017-10-27 12:59] VITALS: BP 100/52
[2017-10-27 15:36] VITALS: BP 122/67
[2017-10-27 15:45] VITALS: BP 105/49
[2017-10-27] MEDS ORDERED: FUROSEMIDE40 MG PO (18:53)
[2017-10-27] MEDS ORDERED: TRESIBA FL100 UNIT/1 SC (18:55)
[2017-10-27 20:00] VITALS: BP 133/52
[2017-10-28] VITALS: BP 108/54
[2017-10-28 07:00] LABS: BASO % 0.8 % (0.0-1.0); EOS # 0.4 10*3/uL (0.0-0.4); EOS % 8.6 % (1.0-4.0); HEMATOCRIT 39.5 % (42.0-52.0); HEMOGLOBIN 12.2 g/dl (14.0-18.0); LYMPH # 0.9 10*3/uL (1.3-4.4); MEAN CELL VOLUME 89.2 fl (80.0-94.0); MEAN CORPUSCULAR HGB 27.5 pg (27.0-31.0); MEAN CORPUSCULAR HGB CONC 30.9 g/dl (33.0-37.0); MEAN PLATELET VOLUME 10.5 fl (9.6-12.3); MONO # 0.4 10*3/uL (0.1-1.0); MONO % 8.6 % (3.0-9.0); NEUT % 63.6 % (47.0-73.0); PLATELET COUNT AUTOMATED 221 10*3/uL (130-400); RED BLOOD COUNT 4.43 10*6/uL (4.50-5.90); RED CELL DISTRI WIDTH 13.3 % (0-14.5); WHITE BLOOD COUNT 4.8 10*3/uL (4.8-10.8)
[2017-10-28 07:07] LABS: ALBUMIN 3.4 gm/dl (3.1-4.5); ALKALINE PHOSPHATASE 124 U/L (45-117); BUN 21 mg/dl (7-24); CHLORIDE 103 mmol/L (98-107); CHOLESTEROL 134 mg/dL (<200); HDL CHOLESTEROL 68 mg/dl (40-60); LDL CHOLESTEROL 52 mg/dL (9-159); POTASSIUM 4.2 mmol/L (3.5-5.1); SGOT/AST 18 IU/L (3-35); SGPT/ALT 19 U/L (12-78); SODIUM 139 mmol/L (136-145); TRIGLYCERIDES 72 mg/dl (<150); VLDL CHOLESTEROL 14 mg/dL (6-40)
[2017-10-28 07:08] LABS: FREE T4 1.19 ng/dl (0.76-1.46)
[2017-10-28 08:00] VITALS: BP 136/74
[2017-10-28 11:07] LABS: VITAMIN D, 25-HYDROXY 13.5 ng/mL (30-100)
[2017-10-28 12:00] VITALS: BP 135/60
[2017-10-28 16:00] VITALS: BP 117/53
[2017-10-28 20:00] VITALS: BP 115/71
[2017-10-29 00:15] VITALS: BP 151/60
[2017-10-29 08:00] VITALS: BP 158/68
[2017-10-29] MEDS ORDERED: VITAMIN D-32000 UNI1 PO (11:06)
[2017-10-29] MEDS ORDERED: CEFDINIR300 MG PO (11:06)
[2017-10-29] MEDS ORDERED: DOXYCYCLINE100 M3 PO (11:06)
[2017-10-29] MEDS ORDERED: TRESIBA FL100 UNIT/1 SC (11:06)
== END 2017-10-29 11:30 | disposition home or self-care (01) | DRG 638 ==
LOC: ED 11:04 → 5E 14:26 → EDHOLD 14:26 → 5E 14:48
PROVIDERS: Physician Assistant; Registered Nurse
DX: E11.621 Type 2 diabetes mellitus with foot ulcer (principal); E87.2 Acidosis; L97.429 Non-pressure chronic ulcer of left heel and midfoot with unspecified severity; E11.42 Type 2 diabetes mellitus with diabetic polyneuropathy; E11.51 Type 2 diabetes mellitus with diabetic peripheral angiopathy without gangrene; L03.116 Cellulitis of left lower limb; I50.20 Unspecified systolic (congestive) heart failure; L02.611 Cutaneous abscess of right foot; I25.5 Ischemic cardiomyopathy; Z96.651 Presence of right artificial knee joint; I11.0 Hypertensive heart disease with heart failure; I25.10 Atherosclerotic heart disease of native coronary artery without angina pectoris; G25.81 Restless legs syndrome; D64.9 Anemia, unspecified; E78.5 Hyperlipidemia, unspecified; E55.9 Vitamin D deficiency, unspecified; Z79.82 Long term (current) use of aspirin; Z79.899 Other long term (current) drug therapy; Z79.4 Long term (current) use of insulin; Z95.1 Presence of aortocoronary bypass graft; Z83.6 Family history of other diseases of the respiratory system

== ENCOUNTER → 2018-12-08 | Outpatient (CLI) | payer MEDICARE ==
[~2018-12-08] MED LIST changes: +CEFADROXIL500 M1 PO; +CEFDINIR300 MG PO; +CLEOCIN HCL300 MG PO; +GLUCOPHAGE500 M1 PO; +IRON PO; +Lopressor25 MG PO; +NORCO 5-325 TA1 EACH PO; +NORVASC2.5 MG PO; +TRESIBA FL100 UNIT/1 SC; +VITAMIN D-32000 UNI1 PO; +ZOFRAN4 MG PO
--- NOTE | ~2018-12-08 | ST ---
[place], [place] EXERCISE STRESS TEST REPORT NAME: KAVITHA MICHAUD [facility] #: [id number] UNIT #: [id number] ROOM: DOCTOR: BLANK CERVANTES MD BIRTHDATE: [birth year] DOS: 12/08/2018 LEXISCAN STRESS EKG REPORT REFERRING PHYSICIAN: Dr. Kaplan. INDICATION: CAD and shortness of breath. The patient underwent standard protocol Lexiscan stress EKG. Baseline EKG showed normal sinus rhythm, nonspecific ST-T wave changes. The patient's baseline heart rate was 66 with a blood pressure of 140/62. The patient's peak heart rate was 81 with a blood pressure of 122/58. The patient had no chest pain, no ischemic change and no arrhythmias. SUMMARY OF FINDINGS: Unremarkable Lexiscan stress EKG. Please see separate report for perfusion scan imaging results. BLANK CERVANTES MD CM:STRESS:EXERCISE STRESS TEST REPORT [id number] BLANK CERVANTES MD
== END | disposition home or self-care (01) ==
LOC: CARD 00:21
DX: I25.119 Atherosclerotic heart disease of native coronary artery with unspecified angina pectoris (principal); I10 Essential (primary) hypertension; I73.9 Peripheral vascular disease, unspecified; R53.81 Other malaise

== ENCOUNTER → 2018-12-21 | Outpatient (CLI) | payer MEDICARE ==
--- NOTE | ~2018-12-21 | EKG ---
[place], [place] ELECTROCARDIOGRAM REPORT NAME: KAVITHA MICHAUD UNIT #: [id number] ROOM: DOCTOR: EPIPHANY DRAFT REPORT BIRTHDATE: [address] [facility] Test Date: 2018-12-21 Test Time: 17:20:19 Pat Name: KAVITHA MICHAUD Department: Room: Gender: Hog Tender: : 1945 Requested By: BREN DIALLO Order Number: [id number] Reading MD: Abby Shah Measurements Intervals [place] Rate: 65 P: 80 MA: 177 QRS: 48 QRSD: 92 T: 87 QT: 458 QTc: 477 Interpretive Statements Sinus rhythm Borderline prolonged QT interval Electronically Signed On 12-22-2018 8:40:00 PDT by Abby Shah CM:EKGRPT:ELECTROCARDIOGRAM REPORT 1720 [id number] BREN LONG DRAFT REPORT BREN DIALLO DO
== END | disposition home or self-care (01) ==
LOC: ORTHO 00:09
DX: S62.522A Displaced fracture of distal phalanx of left thumb, initial encounter for closed fracture (principal); X58.XXXA Exposure to other specified factors, initial encounter; Y93.89 Activity, other specified; Y92.89 Other specified places as the place of occurrence of the external cause; Y99.8 Other external cause status

== ENCOUNTER → 2019-02-12 | Outpatient (CLI) | payer MEDICARE ==
[2019-02-12 09:38] LABS: BASO % 0.7 % (0.0-1.0); EOS # 0.2 10*3/uL (0.0-0.4); EOS % 4.8 % (1.0-4.0); HEMATOCRIT 36.4 % (42.0-52.0); HEMOGLOBIN 11.5 g/dl (14.0-18.0); LYMPH # 1.1 10*3/uL (1.3-4.4); LYMPH % 23.9 % (27.0-41.0); MEAN CELL VOLUME 93.3 fl (80.0-94.0); MEAN CORPUSCULAR HGB 29.5 pg (27.0-31.0); MEAN CORPUSCULAR HGB CONC 31.6 g/dl (33.0-37.0); MEAN PLATELET VOLUME 11.2 fl (9.6-12.3); MONO # 0.4 10*3/uL (0.1-1.0); MONO % 8.2 % (3.0-9.0); NEUT # 2.9 10*3/uL (2.3-7.9); NEUT % 62.2 % (47.0-73.0); PLATELET COUNT AUTOMATED 179 10*3/uL (130-400); WHITE BLOOD COUNT 4.6 10*3/uL (4.8-10.8)
== END | disposition home or self-care (01) ==
LOC: LAB 08:41
PROVIDERS: Orthopaedic Surgery
DX: E78.00 Pure hypercholesterolemia, unspecified (principal); Z96.651 Presence of right artificial knee joint

== ENCOUNTER → 2019-02-19 | Outpatient (CLI) | payer MEDICARE | END | disposition home or self-care (01) | LOC: ORTHO 00:19 | DX: S68.012D Complete traumatic metacarpophalangeal amputation of left thumb, subsequent encounter (principal); X58.XXXD Exposure to other specified factors, subsequent encounter ==

== ENCOUNTER 2019-08-10 10:42 | Inpatient (IN) | payer MEDICARE ==
[~2019-08-10] VITALS: Ht 177.8 cm; Wt 59.9 kg
[2019-08-10 10:51] VITALS: BP 95/53
--- NOTE | 2019-08-10 11:13 | NUR ---
PT STATES HAS APPT AT WOUND CLINIC TUESDAY.
[2019-08-10 12:01] LABS: BASO % 0.2 % (0.0-1.0); HEMATOCRIT 33.1 % (42.0-52.0); HEMOGLOBIN 10.2 g/dl (14.0-18.0); LYMPH # 0.6 10*3/uL (1.3-4.4); LYMPH % 4.7 % (27.0-41.0); MEAN CELL VOLUME 90.4 fl (80.0-94.0); MEAN CORPUSCULAR HGB 27.9 pg (27.0-31.0); MEAN CORPUSCULAR HGB CONC 30.8 g/dl (33.0-37.0); MEAN PLATELET VOLUME 9.8 fl (9.6-12.3); MONO # 0.8 10*3/uL (0.1-1.0); MONO % 6.7 % (3.0-9.0); NEUT # 11.1 10*3/uL (2.3-7.9); NEUT % 87.9 % (47.0-73.0); PLATELET COUNT AUTOMATED 311 10*3/uL (130-400); RED BLOOD COUNT 3.66 10*6/uL (4.50-5.90); RED CELL DISTRI WIDTH 13.2 % (0-14.5); WHITE BLOOD COUNT 12.6 10*3/uL (4.8-10.8)
[2019-08-10 12:13] LABS: ACT PARTIAL THROMBO TIME 28.5 SECONDS (20.0-32.1)
[2019-08-10 12:15] LABS: ALBUMIN 2.8 gm/dl (3.1-4.5); ALKALINE PHOSPHATASE 96 U/L (45-117); BUN 34 mg/dl (7-24); CHLORIDE 103 mmol/L (98-107); LIPASE 23 U/L (73-393); POTASSIUM 4.1 mmol/L (3.5-5.1); SGOT/AST 26 IU/L (3-35); SGPT/ALT 21 U/L (12-78); SODIUM 139 mmol/L (136-145); TOTAL PROTEIN 7.3 gm/dL (6.4-8.2)
[2019-08-10 12:24] LABS: TROPONIN I 0.129 ng/ml (<0.045)
--- NOTE | 2019-08-10 12:33 | NUR ---
PULSES HEARD BY DOPPLER TO PEDAL AND DORSAL.
[2019-08-10 13:42] LABS: BILIRUBIN NEGATIVE (NEGATIVE); BLOOD 3+ (NEGATIVE); CLARITY CLOUDY (CLEAR); COLOR YELLOW (YELLOW); GLUCOSE NEGATIVE (NEGATIVE); KETONE NEGATIVE (NEGATIVE); LEUKO ESTERASE 3+ (NEGATIVE); SPECIFIC GRAVITY 1.025 (1.005-1.030); UROBILINOGEN 0.2 E.U./dl (0.2-1.0)
[2019-08-10 13:43] LABS: NITRITE POSITIVE (NEGATIVE)
[2019-08-10 13:46] LABS: RBC 16-20 rbc/hpf (0-2)
[2019-08-10 13:47] LABS: BACTERIA 1+
--- NOTE | 2019-08-10 15:19 | NUR ---
[facility] , under the services of KAHLIL Michael DO with a diagnosis of PNEUMONIA. Chief complaint is BACK PAIN. Patient arrived via bed from ER. Monitor applied. Initial assessment completed. Vital signs taken and recorded. KAHLIL MICHAEL DO notified of admission to the unit. Orders received. See assessment for past medical history, medications and allergies. Patient and/or family oriented to unit. [facility] Clothing/patient valuable form completed. MORENA SPARROW
[2019-08-10] MEDS ORDERED: TRESIBA FL100 UNIT/1 SC ×2 (15:23→15:25)
--- NOTE | 2019-08-10 15:54 | NUR ---
PT OFF FLOOR TO SURGERY.
--- NOTE | 2019-08-10 16:15 | NUR ---
DR. MORRISON'S ANSWERING SERVICE NOTIFIED OF CONSULT.
--- NOTE | 2019-08-10 17:20 | NUR ---
DR. ORTIZ NOTIFIED OF CONSULT.
[2019-08-10 18:00] VITALS: BP 118/49
--- NOTE | 2019-08-10 18:00 | NUR ---
PT ADMITTED TO ICCU 3 AT THIS TIME FROM SURGERY DEPT POST OP TOE AMPUTATION. PT ALERT AND ORIENTED. POX 95% ON 5L NC. WHEEZES NOTED. TEMP 101.7. BP 118/49 NSR RATE 90'S. LARGE BULKY POST OP DRESSING NOTED TO RIGHT FOOT. DENIES ANY PAIN AT THIS TIME.
[2019-08-10 18:15] VITALS: BP 102/35
[2019-08-10 19:56] VITALS: BP 11/47; BP 111/47
--- NOTE | 2019-08-10 22:34 | NUR ---
PATIENT GIVEN PAIN PILL FOR RIGHT FOOT PAIN POST SURGERY
[2019-08-11] VITALS: BP 103/46
--- NOTE | 2019-08-11 03:59 | NUR ---
patient stated that he feels like he is having a hard time breathing this morning patient hr 84 respirations 19 pulse ox 97%on 5 liters patient breath sounds are wheezes through out and patient is stating he has non productive cough at this time. patient is stable with no c/o pain at this time.
[2019-08-11 04:00] VITALS: BP 110/70
[2019-08-11 05:27] LABS: BUN 34 mg/dl (7-24); CHLORIDE 100 mmol/L (98-107); CHOLESTEROL 96 mg/dL (<200); CREATININE 1.03 mg/dL (0.70-1.30); HDL CHOLESTEROL 45 mg/dl (40-60); LDL CHOLESTEROL 39 mg/dL (9-159); POTASSIUM 4.7 mmol/L (3.5-5.1); SODIUM 136 mmol/L (136-145); TRIGLYCERIDES 59 mg/dl (<150); VLDL CHOLESTEROL 12 mg/dL (6-40)
[2019-08-11 06:15] LABS: BASO % 0.1 % (0.0-1.0); HEMATOCRIT 30.1 % (42.0-52.0); LYMPH # 0.5 10*3/uL (1.3-4.4); LYMPH % 4.3 % (27.0-41.0); MEAN CELL VOLUME 90.7 fl (80.0-94.0); MEAN CORPUSCULAR HGB 27.1 pg (27.0-31.0); MEAN CORPUSCULAR HGB CONC 29.9 g/dl (33.0-37.0); MEAN PLATELET VOLUME 10.1 fl (9.6-12.3); MONO # 0.7 10*3/uL (0.1-1.0); MONO % 5.8 % (3.0-9.0); NEUT # 10.4 10*3/uL (2.3-7.9); NEUT % 89.4 % (47.0-73.0); PLATELET COUNT AUTOMATED 303 10*3/uL (130-400); RED BLOOD COUNT 3.32 10*6/uL (4.50-5.90); RED CELL DISTRI WIDTH 13.2 % (0-14.5); WHITE BLOOD COUNT 11.6 10*3/uL (4.8-10.8)
[2019-08-11 06:32] LABS: ACT PARTIAL THROMBO TIME 30.2 SECONDS (20.0-32.1)
[2019-08-11 08:00] VITALS: BP 121/92
--- NOTE | 2019-08-11 08:52 | NUR ---
ALEX FOR UPSET STOMACH, NORCO FOR SURGICAL PAIN
--- NOTE | 2019-08-11 09:00 | NUR ---
ALEX FOR UPSET STAMACH, NORCO FOR SURGICAL HAVE BEEN EFFECTIVE, PT ALERT AND ORIENTED, USES URINAL, REMINDED TO NOT STAND ON FOOT
--- NOTE | 2019-08-11 10:00 | NUR ---
PHYSICAL THERAPY PATIENT WAS TRANSFERRED TO ICCU AND WILL NEED NEW ORDER FOR PT SERVICES. THANK YOU RIGOBERTO PEDROZA PT
--- NOTE | 2019-08-11 11:04 | NUR ---
Postural drainage and CPT performed. Patient exhibits difficulty and reluctance to enter into proper PD positions. Patient tolerated procedure well, but without expectorating any sputum. Flutter valve also performed with very poor effort.
[2019-08-11 12:00] VITALS: BP 106/55
--- NOTE | 2019-08-11 12:00 | NUR ---
TYELON HAS BEEN EFFECTIVE FOR TEMP CONTROL
--- NOTE | 2019-08-11 13:15 | NUR ---
WOUND VAC TO RIGHT FOOT AT 125 CONT
--- NOTE | 2019-08-11 13:24 | NUR ---
AFC HAS BEEN IN TODAY
[2019-08-11 16:00] VITALS: BP 123/56
[2019-08-11 19:40] VITALS: BP 130/63
--- NOTE | 2019-08-11 23:15 | NUR ---
PATIENT GIVEN TYLENOL FOR FEVER OF 102.4 WILL RECHECK.
[2019-08-12] VITALS: BP 134/63
--- NOTE | 2019-08-12 02:03 | NUR ---
RECHECKED PATIENTS TEMP NOW DOWN TO 99.3. TYLENOL EFFECTIVE CURRENTLY WILL MONITOR.
[2019-08-12 04:35] LABS: BASO % 0.1 % (0.0-1.0); EOS # 0.2 10*3/uL (0.0-0.4); EOS % 1.6 % (1.0-4.0); HEMATOCRIT 25.9 % (42.0-52.0); HEMOGLOBIN 7.9 g/dl (14.0-18.0); LYMPH # 0.5 10*3/uL (1.3-4.4); LYMPH % 4.8 % (27.0-41.0); MEAN CELL VOLUME 90.6 fl (80.0-94.0); MEAN CORPUSCULAR HGB 27.6 pg (27.0-31.0); MEAN CORPUSCULAR HGB CONC 30.5 g/dl (33.0-37.0); MEAN PLATELET VOLUME 9.8 fl (9.6-12.3); MONO # 0.6 10*3/uL (0.1-1.0); MONO % 6.3 % (3.0-9.0); NEUT # 8.5 10*3/uL (2.3-7.9); PLATELET COUNT AUTOMATED 256 10*3/uL (130-400); RED BLOOD COUNT 2.86 10*6/uL (4.50-5.90); RED CELL DISTRI WIDTH 13.4 % (0-14.5); WHITE BLOOD COUNT 9.8 10*3/uL (4.8-10.8)
[2019-08-12 04:49] LABS: BUN 30 mg/dl (7-24); CHLORIDE 103 mmol/L (98-107); CREATININE 0.96 mg/dL (0.70-1.30); POTASSIUM 4.1 mmol/L (3.5-5.1); SODIUM 136 mmol/L (136-145)
--- NOTE | 2019-08-12 05:43 | NUR ---
DOCTOR TAMI TO THE FLOOR INFORMED HIM OF PATIENTS HGB OF 7.9 HE SAID HE WAS GOING TO PUT BLOOD ON HOLD JUST INCASE. NO OTHER ORDERS THAN THAT.
[2019-08-12 08:00] VITALS: BP 140/59
--- NOTE | 2019-08-12 08:41 | NUR ---
PLEASANT AND COOPERATIVE, EDUCATION PROVIDED ON WOUND VAC, BUT PTS EXPECTATIONS ARE THAT THE WOUND WILL HEAL IN A WEEK OR SO, CONTINUES TO NEED NC AT 4 L, HARSH BREATH SOUNDS, ENC THE USE OF THE FLUTTER VALVE
--- NOTE | 2019-08-12 11:49 | NUR ---
norco for right knee pain and right foot pain has been effective
[2019-08-12 12:00] VITALS: BP 137/64
--- NOTE | 2019-08-12 12:45 | NUR ---
AFC HERE AND CHANGED OUT PTS WOUND VAC DRESSING
--- NOTE | 2019-08-12 14:43 | NUR ---
TRANSFERRED TO [facility] WITH BELONGINGS
[2019-08-12 16:00] VITALS: BP 137/55
[2019-08-12 16:06] LABS: ACID FAST SPEC PROCESSING Tissue Grinding (.)
[2019-08-12 20:00] VITALS: BP 126/66
[2019-08-13] VITALS: BP 120/58
--- NOTE | 2019-08-13 01:44 | NUR ---
24 HR chart check completed.
--- NOTE | 2019-08-13 05:45 | NUR ---
SPOKE WITH DR. CIFUENTES. NOTIFIED HIM THAT I HAVE SLOWLY BEEN INCREASING THE PATIENTS OXYGEN TONIGHT AND NOW HE IS ON 10L HIGH FLOW O2 AT 93%. PATIENT HAVING DIFFICULTY BREATHING AND HAS OFF AND ON. PATIENT CHRISSY HAS A MOIST COUGH AND WHEEZES. NOTIFIED HIM THAT THE PATIENT HAD BRONCHOPNEMONIA ON ADMISSION AND CURRENTLY HAS BAG #4 OF FLUIDS RUNNING. HE STATED TO D/C THE FLUIDS AND GET A STAT CHEST XRAY
[2019-08-13 06:01] LABS: BUN 25 mg/dl (7-24); CHLORIDE 106 mmol/L (98-107); CREATININE 0.85 mg/dL (0.70-1.30); POTASSIUM 4.4 mmol/L (3.5-5.1); SODIUM 138 mmol/L (136-145)
[2019-08-13 06:03] LABS: EOS % 0.2 % (1.0-4.0); HEMATOCRIT 28.7 % (42.0-52.0); HEMOGLOBIN 8.6 g/dl (14.0-18.0); LYMPH # 0.5 10*3/uL (1.3-4.4); LYMPH % 4.9 % (27.0-41.0); MEAN CELL VOLUME 90.8 fl (80.0-94.0); MEAN CORPUSCULAR HGB 27.2 pg (27.0-31.0); MEAN PLATELET VOLUME 9.8 fl (9.6-12.3); MONO # 0.6 10*3/uL (0.1-1.0); MONO % 6.3 % (3.0-9.0); NEUT # 8.1 10*3/uL (2.3-7.9); NEUT % 88.2 % (47.0-73.0); PLATELET COUNT AUTOMATED 293 10*3/uL (130-400); RED BLOOD COUNT 3.16 10*6/uL (4.50-5.90); RED CELL DISTRI WIDTH 13.3 % (0-14.5); WHITE BLOOD COUNT 9.2 10*3/uL (4.8-10.8)
--- NOTE | 2019-08-13 07:28 | NUR ---
KAVITHA MICHAUD [id number] Please refer to the physician's history and physical for past medical history, comorbid conditions, and allergies. Diagnosis: CELLULITIS ELEVATED TROPONIN PNEUMONIA Arian Score: 18,LOW OR NO RISK WOUND DESCRIPTIONS: Wound Number: 1 right foot wound vac intact at 125mmHg low continous. No strikethrough drainage noted. Patient states he is supposed to go back for more surgery and he stated that he will follow up with podiatry upon discharge. Surface the patient is resting on: Position Pro SKIN PREVENTION RECOMMENDATION: 1. Pressure redistribution support surface as appropriate 2. Elevate heels 3. Remove boots/TEDS every shift and reapply 4. Head of bed 30 degrees as tolerated 5. Assess nutrition and hydration 6. Manage moisture 7. Avoid the use of containment devices while in bed 8. Use absorptive products on surfaces limit layers of linens on bed 9. Turn and reposition every 1-2 hours in bed and every 1 hour in chair as tolerated 10. Weight shifts every 15 minutes while up in chair 11. Offloading with pillows or device to keep heels elevated off bed 12. Monitor skin at least every shift 13. Inspect under medical devices twice a day WOUND TREATMENT RECOMMENDATIONS: Podiatry and ID is already on consult. Heel raiser pro boots to bilateral feet while in bed. Will speak with podiatry for wound vac clarification. Patient states he will follow up with podiatry upon discharge.
[2019-08-13 08:00] VITALS: BP 152/68
--- NOTE | 2019-08-13 08:49 | NUR ---
Patient was transferred into the ICCU and returned to the fourth floor. Will need new Occupational therapy orders when patient is appropriate. Thank you. Fernanda Mcgregor, OTR/L
--- NOTE | 2019-08-13 09:00 | NUR ---
Brush Clearer Surveying in to talk to patient. Patient states lives at home with . There are few steps in the home. Physician: blanka luther [facility]: none Patient's level of ADLs: MINIMAL ASSIST Patient has working utilities: all working DME: cane no home oxygen Follow-up physician's appointment after d/c: will be made by hospitalist nurse director upon discharge Does patient want to access PORTAL?: no Discharge plan discussed with patient, he states he lives at home with , he uses a cane to ambulate, is independent in adls, discussed with him a short term long-term to maintain iv antibiotics and wound vac, along with physical therapy, patient asked what facilities were in network with his insurance, educated him that planner intern will check with local facilities and make referral, case management will follow. ETTA ODELL
--- NOTE | 2019-08-13 09:50 | NUR ---
Demographics faxed to [facility] to check for out of network benefits; patient will require PT/OT evals and precert
--- NOTE | 2019-08-13 10:50 | NUR ---
Patient has out of network benefits for [facility] and they are willing to review the referral. Referral faxed with wound vac order, requires PT/OT evals and precert. Waiting on PT/OT evals.
--- NOTE | 2019-08-13 11:27 | NUR ---
Dr. Schultz notified of wound care recommendations.
[2019-08-13 12:00] VITALS: BP 130/65
--- NOTE | 2019-08-13 12:00 | NUR ---
Occupational therapy orders received and OT evaluation completed in full on floor four. Patient precautions include fall risk, ww use, NWB RLE, RLE wound vac, O2, and decreased safety. Per OT eval, OT recommends a SNF. Patient would benefit from continued OT treatment to maximize safety and independence with ADLs, mobility, and transfers. [place] complexity [place], [id number]. Thank you for the referral. Fernanda Mcgregor, OTR/L
--- NOTE | 2019-08-13 14:01 | NUR ---
Pt seen for PT evaluation this day. Pt is NWB RLE with wound vac to RLE. Pt was participative; needed cues and education for abiding NWB RLE. Pt bed alarm on at the end of this eval and pt educated to call for any assist needed, a BSC can be brought bedside when needed. Pt has hand held urinal at bedside. Call button and pt cell phone in reach. Pt's present. Precautions: standared, NWB RLE, cardiac. eneterd pt's room for R LE assessment, R LE was re dressed. Hospital pulse ox used d/t difficulty getting reading from small portable pulse ox. Plan for pt to go to SNF upon hospital DC. High complexity evaluation completed. Thank you for this referral, Sheri Chavez, PT.
--- NOTE | 2019-08-13 14:09 | NUR ---
[facility] stating they can accept this patient; requires PT/OT and Precert. Waiting on PT eval.
[2019-08-13 16:00] VITALS: BP 162/77
[2019-08-13 16:09] LABS: VITAMIN D, 25-HYDROXY 33.5 ng/mL (30-100)
--- NOTE | 2019-08-13 16:22 | NUR ---
notified of consult
--- NOTE | 2019-08-13 16:27 | NUR ---
AEROSOL TREATMENT NOT GIVEN, PT. CURRENTLY HAVING ECHO.
[2019-08-13 20:00] VITALS: BP 133/55
--- NOTE | 2019-08-13 20:03 | NUR ---
AT 1909 POSTURAL DRAINAGE DONE VIA HAND PERCUSSION PT HAD NPC PT TOLERATED AND STATES HE USES FLUTTER VALVE ALSO
--- NOTE | 2019-08-13 20:10 | NUR ---
PATIENT RESTING IN BED. NO DISTRESS NOTED. STATED HIS BREATHING IS MUCH BETTER. 10L HIGH FLOW CANNULA INTACT. CALL LIGHT WITHIN REACH, WILL MONITOR
--- NOTE | 2019-08-13 21:16 | NUR ---
PATIENT REQUESTS OXYGEN TO BE TURNED DOWN. STATES IT'S TOO POWERFUL AND DOESN'T LIKE IT. PATIENT NOTED 97% ON 10L HFNC. PATIENT SLOWLY DROPPED TO 6L HFNC. MAINTAINED AT 6L HFNC AT 94-95%.
[2019-08-14] VITALS (9 sets, daily range): BP systolic 120–162; BP diastolic 50–91
--- NOTE | 2019-08-14 07:58 | NUR ---
MORPHINE GIVEN FOR C/O RT FOOT PAIN. RATES 8/10 ON PAIN SCALE. WILL MONITOR.
--- NOTE | 2019-08-14 08:00 | NUR ---
MORPHINE GIVEN FOR C/O RT FOOT PAIN. RATES 8/10 ON PAIN SCALE. WILL MONITOR.
[2019-08-14 08:01] LABS: HEMATOCRIT 30.7 % (42.0-52.0); HEMOGLOBIN 9.3 g/dl (14.0-18.0); MEAN CELL VOLUME 91.1 fl (80.0-94.0); MEAN CORPUSCULAR HGB 27.6 pg (27.0-31.0); MEAN CORPUSCULAR HGB CONC 30.3 g/dl (33.0-37.0); MEAN PLATELET VOLUME 9.9 fl (9.6-12.3); PLATELET COUNT AUTOMATED 313 10*3/uL (130-400); RED BLOOD COUNT 3.37 10*6/uL (4.50-5.90); RED CELL DISTRI WIDTH 13.3 % (0-14.5)
--- NOTE | 2019-08-14 08:15 | NUR ---
PHYSICAL THERAPY Patient seen this am 1;1 for therapy visit and was resting supine in bed upon therapist arrival. Patient identified by name / and presented with continuous O2-4L via NC, wound vac R LE, IV treatment. Patient c/o 8/10 R foot pain that seems to remain pretty constant throughout the day. Patient recorded SpO2 95% at rest and following supine to sit EOB, then sit to stand MIN A, dropped to 88% SpO2. Patient instructed on purse lip breathting technique and NWB R LE for all standing activities and demonstrated only 50% compliance this session, requiring multiple v/c's to complete all therapy. Patient also completed SPT to BSC, use of wh walker standing support, MIN A, needing v/c for proper hand placemnt prior to sitting or standing up. Patient returned to supine in bed and remained with call light, tray table, telephone and bed alarm for safety. Will continue per POC as tolerated, total treatment time 16 minutes. Larry Robin, ASSISTANT STORE MANAGER SALES
[2019-08-14 08:24] LABS: BUN 22 mg/dl (7-24); CHLORIDE 105 mmol/L (98-107); CREATININE 0.78 mg/dL (0.70-1.30); POTASSIUM 4.5 mmol/L (3.5-5.1); SODIUM 139 mmol/L (136-145); TOTAL CELLS COUNTED 100 #CELLS
--- NOTE | 2019-08-14 08:25 | NUR ---
OT NOTE Pt was seen this A.M. 1:1 for 25 minute OT session. Upon arrival pt was supine in bed. Pt identified by name and and had complaints of 8/10 R foot and knee pain. Pt presented to therapy with continuous 4L-O2 via NC which he remained on throughout the entire session. Pt's resting spO2 was 95% and heart rate 92bpm. Pt was educated on NWB to RLE and pt voiced understanding. Pt transferred supine to sit EOB with Wes for assist with UB. While sitting EOB pt donned L sock with SBA after pt was educated on energy conservation technique of bringing his leg up over knee. Multiple sit to stand transfers were completed from the bed level with Wes and use of w/w for UE support. Challenged pt's static standing tolerance needed for increased I in self care tasks and functional transfers. Pt was able to tolerate aprox 60 seconds at a time before sitting due to fatigue. Thorughout pt required constant verbal, tactile, and visual prompts for maintaining NWB to RLE and pt was aprox 50% compliant. Standing pivot then completed from the EOB to the bedside commode with Wes and use of w/w. There he transferred on to bedside commode with CGA and off with Wes. Pt then transferred back into bed sit to supine with Wes for assist with BLE. Thoroughout activity pt's SpO2 dropped to 88% and heart rate 100 bpm after aprox 60 seconds pt's SpO2 was back to 93%. Pt was left supine in bed with call light in hand, tray table in place, and bed alarm activated for safety. Continue with rec D/C plan to SNF. FAHAD Kee/Pedro
[2019-08-14 08:26] LABS: OVALOCYTES FEW; PLATELET SUFFICIENCY NORMAL (NORMAL)
[2019-08-14 08:27] LABS: SCHISTOCYTES FEW
--- NOTE | 2019-08-14 09:00 | NUR ---
MORPHINE APPEARS EFFECTIVE. PT RESTING IN BED WITH EYES CLOSED. WILL CONTINUE TO MONITOR.
--- NOTE | 2019-08-14 09:00 | NUR ---
case management visits with patient, educated him that precert for [facility] will be initiated today, no other needs at this time
--- NOTE | 2019-08-14 11:05 | NUR ---
Patient updated clinicals and therapy [facility] waiting on auth.
--- NOTE | 2019-08-14 13:18 | NUR ---
MEDICATED WITH IV MORPHINE ORDERED PER PT REQUEST FOR C/O PAIN RATED 10/10 TO R FOOT.
--- NOTE | 2019-08-14 13:59 | NUR ---
NORCO GIVEN FOR C/O RT FOOT PAIN. RATES 8/10 ON PAIN SCALE. WILL MONITOR.
--- NOTE | 2019-08-14 15:00 | NUR ---
SABRA EFFECTIVE PER PT.
--- NOTE | 2019-08-14 21:30 | NUR ---
MEDICATED WITH RESTORIL FOR C/O INSOMNIA.
--- NOTE | 2019-08-14 21:36 | NUR ---
MEDICATED WITH RESTORIL FOR C/O INSOMNIA.
--- NOTE | 2019-08-14 22:00 | NUR ---
BLOOD SUGAR 308; COVERAGE GIVEN PER EMAR.
[2019-08-15] VITALS: BP 129/52
--- NOTE | 2019-08-15 03:58 | NUR ---
Upon discharge recommend patient to follow up for wound care in outpatient setting continue current wound care orders at discharging facility.
[2019-08-15 07:07] LABS: BASO % 0.1 % (0.0-1.0); EOS # 0.1 10*3/uL (0.0-0.4); EOS % 0.9 % (1.0-4.0); HEMATOCRIT 29.2 % (42.0-52.0); HEMOGLOBIN 8.7 g/dl (14.0-18.0); LYMPH # 0.6 10*3/uL (1.3-4.4); LYMPH % 8.1 % (27.0-41.0); MEAN CELL VOLUME 91.3 fl (80.0-94.0); MEAN CORPUSCULAR HGB 27.2 pg (27.0-31.0); MEAN CORPUSCULAR HGB CONC 29.8 g/dl (33.0-37.0); MEAN PLATELET VOLUME 9.9 fl (9.6-12.3); MONO # 0.2 10*3/uL (0.1-1.0); MONO % 2.3 % (3.0-9.0); NEUT # 6.6 10*3/uL (2.3-7.9); NEUT % 88.3 % (47.0-73.0); PLATELET COUNT AUTOMATED 291 10*3/uL (130-400); RED CELL DISTRI WIDTH 13.2 % (0-14.5); WHITE BLOOD COUNT 7.5 10*3/uL (4.8-10.8)
[2019-08-15 07:33] LABS: BUN 20 mg/dl (7-24); CHLORIDE 105 mmol/L (98-107); CREATININE 0.75 mg/dL (0.70-1.30); SODIUM 141 mmol/L (136-145)
[2019-08-15 07:34] LABS: POTASSIUM 3.2 mmol/L (3.5-5.1)
[2019-08-15 07:37] VITALS: BP 138/68
--- NOTE | 2019-08-15 07:37 | NUR ---
PATIENT COMPLAINS OF CHEST PAIN RADIATING DOWN LEFT ARM ALSO COMPLAINS OF LEG PAIN. PATIENT STATES PAIN LEVEL OF 7. MEDICATED WITH NORCO 5/325MG. WILL REASSESS PATIENTS PAIN LEVEL IN 30 MINUTES. DEREK MOTTA.RCC
--- NOTE | 2019-08-15 07:48 | NUR ---
ASSESSMENT COMPLETED AND DOCUMENTED. PT A&O. ACTIVE BS X4. WOUND VAC INTACT. NO C/O OF PAIN OR DISCOMFORT AT THIS TIME. ALL LOPEZ SPNRCC
--- NOTE | 2019-08-15 08:35 | NUR ---
PHYSICAL THERAPY Patient seen this am 1;1 for therapy visit and was sitting up on EOB following OT phlebotomist medical lab assistant visit. Patient identified by name / and presents with continuos O2-4L via NC and R LE wound vac. Patient is still NWB on R LE and performed seated L LE therex, all planes, x 15 reps each without c/o, followed by several sit to stand transfers, use of wh walker standing support, MIN A. Patient tolerated approx 1 minute static stand each trial and was 75% compliant with NWB status. Patient returned to supine in bed and remained with call light, tray table, telephone and bed alarm for safety. Will continue per POC as tolerated, total treatment time 15 minutes. Larry Robin, BLOOD BANK ASSISTANT
--- NOTE | 2019-08-15 09:00 | NUR ---
case management visits with patient, he has been referred to [facility] for wound care prior to returning home, program planner and case management will follow
--- NOTE | 2019-08-15 09:12 | NUR ---
OT NOTE PATIENT SEEN 1:1 OT THIS DATE 12 MINUTES. PATIENT IDENTIFIED BY NAME AND DATE OF . PATIENT COMPLETED SUPINE TO SIT EOB CGA. COMPLETED UB DRESSING GOWN SITTING EOB MIN A AND LB DRESSING ADJUST NON SLIP SOCK MIN A. PATIENT COMPLETED SIT TO STAND FROM BED MIN A WITH PATIENT DEMONSTRATING DIFFICULTY MAINTAINING NWB RLE APROX 50 % TIME WITH EDUCATION COMPLETED TRANSFER TASKS. PATIENT COMPLETED STATIC STAND BALANCE USE FWW SUPPORT APPROX 1 MINUTE FOR INCREASE STAND TOLERANCE DURING ADL TASKS WITH PATIENT DEMONSTRATING GOOD CARRY OVER RLE NWB WITH STATIC STANDING TASK. PATIENT IN CARE OF NAPPER RUNNER END OF OT SESSION THIS DATE. CONTINUE TOWARDS PLAN OF CARE. CONNIE VÁSQUEZ/Pedro
--- NOTE | 2019-08-15 10:23 | NUR ---
PT. RESTING IN BED. VERY PLEASANT. NO SIGNS OF DISCOMFORT. NO C/O OF PAIN. WOUND VAC INTACT. ALL LOPEZ SPNRCC
[2019-08-15 12:11] VITALS: BP 150/58
--- NOTE | 2019-08-15 12:16 | NUR ---
PT SLEEPING IN BED VERY QUIET. SPO2 99%, 97.5,150/58, RR 20, NO C/O OF PAIN OR DISCOMFORT. ALL LOPEZ SPJAHAIRACC
[2019-08-15 13:04] LABS: ACID FAST SPEC PROCESSING Tissue Grinding (.)
--- NOTE | 2019-08-15 13:21 | NUR ---
PT. EATING LUNCH. WOUND VAC INTACT. NO C/O OF PAIN OR DISCOMFORT. REPORT GIVEN TO ALYSON. ALL LOPEZ SPJAHAIRACC
--- NOTE | 2019-08-15 14:44 | NUR ---
OCCUPATIONAL THERAPY CO-SIGN I approve of the Occupational Therapy notes written above. ROSARIO JUDGE, OTR/L
[2019-08-15 16:00] VITALS: BP 147/69
--- NOTE | 2019-08-15 17:28 | NUR ---
PT RESTING IN BED. NO DISTRESS NOTED. WILL MONITOR
[2019-08-15 20:00] VITALS: BP 126/58
--- NOTE | 2019-08-15 21:19 | NUR ---
PATIENT C/O RIGHT KNEE PAIN, RATES 8/10. MEDICATED WITH MORPHINE. WILL CHECK EFFECTIVENESS.
[2019-08-16] VITALS: BP 127/67
--- NOTE | 2019-08-16 | NUR ---
PATIENT SLEEPING, NO SIGNS OF DISTRESS. MORPHINE EFFECTIVE.
--- NOTE | 2019-08-16 04:43 | NUR ---
PATIENT MEDICATED WITH MORPHINE FOR COMPLAINTS OF RIGHT KNEE PAIN. RATES 12/11. WILL CHECK EFFECTIVENESS.
--- NOTE | 2019-08-16 05:52 | NUR ---
PATIENT WOUND VAC TAKEN OFF. WET TO DRY DRESSING PLACED. HEART MONITOR REMOVED. LIFE TEAM [facility]
--- NOTE | 2019-08-16 06:36 | NUR ---
REPORT GIVEN TO THIRD GRADE TEACHER
--- NOTE | 2019-08-17 10:49 | NUR ---
PHYSICAL THERAPY CO-SIGN I approve of the Physical Therapy notes written above. Kathy Nassar PT
[2019-08-31] MEDS ORDERED: MUCINEX1200 M1 PO (19:26)
== END 2019-08-16 05:52 | disposition short-term general hospital (02) | DRG 853 ==
LOC: ED 10:42 → ICCU 13:59 → EDHOLD 13:59 → 4E 13:59 → ICCU 17:38 → 4E 08-12 14:45
PROVIDERS: Family Medicine; Hospitalist; Internal Medicine; Nurse Practitioner Family; Podiatrist; ADMIT Emergency Medicine
PROC: 0Y6X0Z0 Detachment at Right 5th Toe, Complete, Open Approach (ICD-10-PCS; principal; 2019-08-10)
PROC: 0Y6M0ZD Detachment at Right Foot, Partial 4th Ray, Open Approach (ICD-10-PCS; 2019-08-14)
DX: A41.9 Sepsis, unspecified organism (principal); A48.0 Gas gangrene; J18.9 Pneumonia, unspecified organism; E11.52 Type 2 diabetes mellitus with diabetic peripheral angiopathy with gangrene; M00.9 Pyogenic arthritis, unspecified; E87.2 Acidosis; E44.1 Mild protein-calorie malnutrition; N39.0 Urinary tract infection, site not specified; I24.8 Other forms of acute ischemic heart disease; I50.20 Unspecified systolic (congestive) heart failure; M86.171 Other acute osteomyelitis, right ankle and foot; Z68.1 Body mass index [BMI] 19.9 or less, adult; E11.621 Type 2 diabetes mellitus with foot ulcer; L97.514 Non-pressure chronic ulcer of other part of right foot with necrosis of bone; I95.9 Hypotension, unspecified; E11.69 Type 2 diabetes mellitus with other specified complication; D64.9 Anemia, unspecified; D72.829 Elevated white blood cell count, unspecified; G25.81 Restless legs syndrome; I11.0 Hypertensive heart disease with heart failure; I25.10 Atherosclerotic heart disease of native coronary artery without angina pectoris; E78.5 Hyperlipidemia, unspecified; I25.5 Ischemic cardiomyopathy; E55.9 Vitamin D deficiency, unspecified; E11.65 Type 2 diabetes mellitus with hyperglycemia; L03.031 Cellulitis of right toe; Z96.651 Presence of right artificial knee joint; E11.42 Type 2 diabetes mellitus with diabetic polyneuropathy; Z79.4 Long term (current) use of insulin; Z83.3 Family history of diabetes mellitus; Z82.49 Family history of ischemic heart disease and other diseases of the circulatory system; Z83.6 Family history of other diseases of the respiratory system

== ENCOUNTER 2019-09-02 15:06 | Inpatient (IN) | payer MEDICARE ==
[~2019-09-02] VITALS: Ht 177.8 cm; Wt 67.7 kg
[~2019-09-02 15:06] MED LIST changes: +MUCINEX1200 M1 PO
[2019-09-02 15:08] VITALS: BP 126/58
[2019-09-02 15:37] LABS: BASO % 0.5 % (0.0-1.0); EOS # 0.1 10*3/uL (0.0-0.4); HEMATOCRIT 29.4 % (42.0-52.0); HEMOGLOBIN 8.7 g/dl (14.0-18.0); LYMPH # 0.8 10*3/uL (1.3-4.4); LYMPH % 12.5 % (27.0-41.0); MEAN CELL VOLUME 91.9 fl (80.0-94.0); MEAN CORPUSCULAR HGB 27.2 pg (27.0-31.0); MEAN CORPUSCULAR HGB CONC 29.6 g/dl (33.0-37.0); MEAN PLATELET VOLUME 10.1 fl (9.6-12.3); MONO # 0.5 10*3/uL (0.1-1.0); MONO % 7.8 % (3.0-9.0); NEUT # 4.8 10*3/uL (2.3-7.9); NEUT % 77.9 % (47.0-73.0); PLATELET COUNT AUTOMATED 267 10*3/uL (130-400); RED CELL DISTRI WIDTH 15.8 % (0-14.5); WHITE BLOOD COUNT 6.2 10*3/uL (4.8-10.8)
[2019-09-02 15:47] LABS: ACT PARTIAL THROMBO TIME 26.7 SECONDS (20.0-32.1); INTERNATIONAL NORM RATIO 0.9 (2.0-3.5)
[2019-09-02 15:54] LABS: ALBUMIN 2.7 gm/dl (3.1-4.5); ALKALINE PHOSPHATASE 122 U/L (45-117); BUN 33 mg/dl (7-24); CHLORIDE 104 mmol/L (98-107); CREATININE 0.92 mg/dL (0.70-1.30); POTASSIUM 4.1 mmol/L (3.5-5.1); SGOT/AST 16 IU/L (3-35); SGPT/ALT 21 U/L (12-78); SODIUM 142 mmol/L (136-145); TOTAL PROTEIN 7.1 gm/dL (6.4-8.2)
[2019-09-02 15:56] LABS: TROPONIN I < 0.015 ng/ml (<0.045)
[2019-09-02 16:00] VITALS: BP 145/67
[2019-09-02 16:17] LABS: BILIRUBIN 1+ (NEGATIVE); BLOOD TRACE-LYSED (NEGATIVE); CLARITY CLEAR (CLEAR); COLOR YELLOW (YELLOW); GLUCOSE 3+ (NEGATIVE); KETONE NEGATIVE (NEGATIVE)
[2019-09-02 16:18] LABS: BACTERIA TRACE; LEUKO ESTERASE NEGATIVE (NEGATIVE); NITRITE NEGATIVE (NEGATIVE); RBC 0-2 rbc/hpf (0-2); UROBILINOGEN 0.2 E.U./dl (0.2-1.0)
[2019-09-02 18:30] VITALS: BP 145/67
[2019-09-02] MEDS ORDERED: TYLENOL325 M1 PO (19:22)
[2019-09-02] MEDS ORDERED: NOVOLOG FL100 UNIT/2 SC (19:29)
[2019-09-02] MEDS ORDERED: REMERON15 M2 PO (19:30)
[2019-09-02] MEDS ORDERED: PEPCID40 MG PO (19:30)
[2019-09-02] MEDS ORDERED: ARGINAID POWDE1 EACH PO (19:33)
[2019-09-02] MEDS ORDERED: ONDANSETRON HYDR4 M1 PO (19:33)
[2019-09-02] MEDS ORDERED: Ipratropium Brom3 ML INH (19:34)
[2019-09-02 20:00] VITALS: BP 131/57
[2019-09-03] VITALS: BP 146/75
[2019-09-03 06:28] LABS: BASO % 0.5 % (0.0-1.0); EOS # 0.1 10*3/uL (0.0-0.4); EOS % 1.8 % (1.0-4.0); HEMATOCRIT 30.4 % (42.0-52.0); HEMOGLOBIN 8.8 g/dl (14.0-18.0); LYMPH # 0.8 10*3/uL (1.3-4.4); LYMPH % 10.3 % (27.0-41.0); MEAN CELL VOLUME 92.1 fl (80.0-94.0); MEAN CORPUSCULAR HGB 26.7 pg (27.0-31.0); MEAN CORPUSCULAR HGB CONC 28.9 g/dl (33.0-37.0); MEAN PLATELET VOLUME 10.4 fl (9.6-12.3); MONO # 0.5 10*3/uL (0.1-1.0); NEUT # 6.3 10*3/uL (2.3-7.9); NEUT % 81.1 % (47.0-73.0); PLATELET COUNT AUTOMATED 277 10*3/uL (130-400); RED CELL DISTRI WIDTH 15.9 % (0-14.5); WHITE BLOOD COUNT 7.8 10*3/uL (4.8-10.8)
[2019-09-03 06:55] LABS: ALBUMIN 2.6 gm/dl (3.1-4.5); ALKALINE PHOSPHATASE 115 U/L (45-117); BUN 29 mg/dl (7-24); CHLORIDE 104 mmol/L (98-107); CREATININE 0.83 mg/dL (0.70-1.30); PHOSPHOROUS 3.6 mg/dL (2.5-4.9); POTASSIUM 3.5 mmol/L (3.5-5.1); SGOT/AST 20 IU/L (3-35); SGPT/ALT 21 U/L (12-78); SODIUM 141 mmol/L (136-145)
[2019-09-03 08:00] VITALS: BP 124/70
[2019-09-03 12:00] VITALS: BP 144/61
[2019-09-03 16:00] VITALS: BP 171/78
[2019-09-03 16:30] VITALS: BP 146/64
[2019-09-03 20:00] VITALS: BP 147/70
[2019-09-04] VITALS: BP 112/46
[2019-09-04 06:15] LABS: BASO % 0.4 % (0.0-1.0); EOS # 0.2 10*3/uL (0.0-0.4); EOS % 3.1 % (1.0-4.0); HEMATOCRIT 31.9 % (42.0-52.0); HEMOGLOBIN 9.4 g/dl (14.0-18.0); LYMPH # 0.7 10*3/uL (1.3-4.4); LYMPH % 11.1 % (27.0-41.0); MEAN CELL VOLUME 92.7 fl (80.0-94.0); MEAN CORPUSCULAR HGB 27.3 pg (27.0-31.0); MEAN CORPUSCULAR HGB CONC 29.5 g/dl (33.0-37.0); MEAN PLATELET VOLUME 10.3 fl (9.6-12.3); MONO # 0.5 10*3/uL (0.1-1.0); MONO % 7.2 % (3.0-9.0); NEUT # 5.2 10*3/uL (2.3-7.9); NEUT % 77.8 % (47.0-73.0); PLATELET COUNT AUTOMATED 278 10*3/uL (130-400); RED BLOOD COUNT 3.44 10*6/uL (4.50-5.90); RED CELL DISTRI WIDTH 15.8 % (0-14.5); WHITE BLOOD COUNT 6.7 10*3/uL (4.8-10.8)
[2019-09-04 06:42] LABS: BUN 28 mg/dl (7-24); CHLORIDE 102 mmol/L (98-107); CREATININE 0.78 mg/dL (0.70-1.30); POTASSIUM 4.4 mmol/L (3.5-5.1); SODIUM 138 mmol/L (136-145)
[2019-09-04 08:00] VITALS: BP 136/72
[2019-09-04 10:18] LABS: BODY FLUID WBC 553 /uL
[2019-09-04 10:26] LABS: BODY FLUID WBC 136 /uL
[2019-09-04 11:06] LABS: BF LYMPHOCYTES 43 %; BF MACROPHAGES 26 %; BF MESOTHELIALS 1 %; BF NEUTROPHILS 30 %
[2019-09-04 11:11] LABS: BF LYMPHOCYTES 55 %; BF MACROPHAGES 12 %; BF NEUTROPHILS 33 %
[2019-09-04 12:00] VITALS: BP 141/61
[2019-09-04 17:18] VITALS: BP 124/57
[2019-09-04 20:00] VITALS: BP 109/47
[2019-09-05] VITALS (8 sets, daily range): BP systolic 88–129; BP diastolic 41–74
[2019-09-05 06:28] LABS: BASO % 0.3 % (0.0-1.0); EOS # 0.1 10*3/uL (0.0-0.4); EOS % 1.5 % (1.0-4.0); HEMATOCRIT 28.1 % (42.0-52.0); HEMOGLOBIN 8.5 g/dl (14.0-18.0); LYMPH # 0.7 10*3/uL (1.3-4.4); LYMPH % 12.3 % (27.0-41.0); MEAN CELL VOLUME 90.6 fl (80.0-94.0); MEAN CORPUSCULAR HGB 27.4 pg (27.0-31.0); MEAN CORPUSCULAR HGB CONC 30.2 g/dl (33.0-37.0); MEAN PLATELET VOLUME 10.1 fl (9.6-12.3); MONO # 0.4 10*3/uL (0.1-1.0); MONO % 7.5 % (3.0-9.0); NEUT # 4.6 10*3/uL (2.3-7.9); NEUT % 78.1 % (47.0-73.0); PLATELET COUNT AUTOMATED 255 10*3/uL (130-400); RED CELL DISTRI WIDTH 15.6 % (0-14.5); WHITE BLOOD COUNT 5.9 10*3/uL (4.8-10.8)
[2019-09-05 06:54] LABS: BUN 32 mg/dl (7-24); CHLORIDE 98 mmol/L (98-107); CREATININE 1.09 mg/dL (0.70-1.30); POTASSIUM 4.2 mmol/L (3.5-5.1); SODIUM 136 mmol/L (136-145)
[2019-09-06] VITALS: BP 135/70
[2019-09-06 06:36] LABS: BASO % 0.3 % (0.0-1.0); EOS % 0.3 % (1.0-4.0); HEMATOCRIT 26.5 % (42.0-52.0); HEMOGLOBIN 7.9 g/dl (14.0-18.0); LYMPH # 0.5 10*3/uL (1.3-4.4); LYMPH % 8.4 % (27.0-41.0); MEAN CELL VOLUME 90.1 fl (80.0-94.0); MEAN CORPUSCULAR HGB 26.9 pg (27.0-31.0); MEAN CORPUSCULAR HGB CONC 29.8 g/dl (33.0-37.0); MEAN PLATELET VOLUME 10.6 fl (9.6-12.3); MONO # 0.5 10*3/uL (0.1-1.0); MONO % 7.8 % (3.0-9.0); PLATELET COUNT AUTOMATED 220 10*3/uL (130-400); RED BLOOD COUNT 2.94 10*6/uL (4.50-5.90); RED CELL DISTRI WIDTH 15.5 % (0-14.5)
[2019-09-06 07:00] LABS: BUN 36 mg/dl (7-24); CHLORIDE 98 mmol/L (98-107); CREATININE 0.96 mg/dL (0.70-1.30); POTASSIUM 4.6 mmol/L (3.5-5.1); SODIUM 133 mmol/L (136-145)
[2019-09-06 08:00] VITALS: BP 118/60
[2019-09-06 12:00] VITALS: BP 114/50
[2019-09-06 15:33] VITALS: BP 118/70
[2019-09-06 20:00] VITALS: BP 111/47
[2019-09-07] VITALS: BP 119/61
[2019-09-07 02:18] VITALS: BP 135/55
[2019-09-07 06:53] LABS: BASO % 0.2 % (0.0-1.0); EOS # 0.1 10*3/uL (0.0-0.4); EOS % 2.1 % (1.0-4.0); HEMATOCRIT 28.7 % (42.0-52.0); HEMOGLOBIN 8.6 g/dl (14.0-18.0); LYMPH # 0.4 10*3/uL (1.3-4.4); LYMPH % 7.1 % (27.0-41.0); MEAN CELL VOLUME 90.5 fl (80.0-94.0); MEAN CORPUSCULAR HGB 27.1 pg (27.0-31.0); MEAN PLATELET VOLUME 10.6 fl (9.6-12.3); MONO # 0.4 10*3/uL (0.1-1.0); MONO % 6.9 % (3.0-9.0); NEUT # 5.1 10*3/uL (2.3-7.9); NEUT % 83.5 % (47.0-73.0); PLATELET COUNT AUTOMATED 237 10*3/uL (130-400); RED BLOOD COUNT 3.17 10*6/uL (4.50-5.90); RED CELL DISTRI WIDTH 15.1 % (0-14.5); WHITE BLOOD COUNT 6.1 10*3/uL (4.8-10.8)
[2019-09-07 07:08] LABS: BUN 39 mg/dl (7-24); CHLORIDE 100 mmol/L (98-107); CREATININE 1.01 mg/dL (0.70-1.30); SODIUM 136 mmol/L (136-145)
[2019-09-07 10:11] VITALS: BP 108/62
[2019-09-07 12:00] VITALS: BP 120/52
[2019-09-07 14:09] LABS: ACID FAST SPEC PROCESSING Tissue Grinding (.)
[2019-09-07 14:09] LABS: ACID FAST SPEC PROCESSING Tissue Grinding (.)
[2019-09-07 14:09] LABS: ACID FAST SPEC PROCESSING Tissue Grinding (.)
[2019-09-07 20:00] VITALS: BP 111/80
[2019-09-08] VITALS (7 sets, daily range): BP systolic 110–138; BP diastolic 43–80
[2019-09-08 06:37] LABS: BASO % 0.3 % (0.0-1.0); EOS # 0.1 10*3/uL (0.0-0.4); EOS % 1.2 % (1.0-4.0); HEMATOCRIT 25.6 % (42.0-52.0); HEMOGLOBIN 7.8 g/dl (14.0-18.0); LYMPH # 0.3 10*3/uL (1.3-4.4); LYMPH % 5.6 % (27.0-41.0); MEAN CELL VOLUME 91.1 fl (80.0-94.0); MEAN CORPUSCULAR HGB 27.8 pg (27.0-31.0); MEAN CORPUSCULAR HGB CONC 30.5 g/dl (33.0-37.0); MEAN PLATELET VOLUME 10.6 fl (9.6-12.3); MONO # 0.3 10*3/uL (0.1-1.0); MONO % 4.8 % (3.0-9.0); NEUT # 5.1 10*3/uL (2.3-7.9); NEUT % 87.8 % (47.0-73.0); PLATELET COUNT AUTOMATED 222 10*3/uL (130-400); RED BLOOD COUNT 2.81 10*6/uL (4.50-5.90); RED CELL DISTRI WIDTH 14.9 % (0-14.5); WHITE BLOOD COUNT 5.9 10*3/uL (4.8-10.8)
[2019-09-08 06:55] LABS: BUN 36 mg/dl (7-24); CHLORIDE 102 mmol/L (98-107); CREATININE 1.08 mg/dL (0.70-1.30); POTASSIUM 3.6 mmol/L (3.5-5.1); SODIUM 137 mmol/L (136-145)
[2019-09-08] MEDS ORDERED: VANCO 750750 MG/250 IV (10:28)
[2019-09-08] MEDS ORDERED: CEFEPIME2 GM/100 M IV (10:28)
[2019-09-08 18:30] LABS: BASO % 0.3 % (0.0-1.0); EOS # 0.1 10*3/uL (0.0-0.4); EOS % 1.6 % (1.0-4.0); HEMOGLOBIN 8.2 g/dl (14.0-18.0); LYMPH # 0.6 10*3/uL (1.3-4.4); LYMPH % 9.4 % (27.0-41.0); MEAN CORPUSCULAR HGB 27.3 pg (27.0-31.0); MEAN CORPUSCULAR HGB CONC 30.4 g/dl (33.0-37.0); MEAN PLATELET VOLUME 10.6 fl (9.6-12.3); MONO # 0.5 10*3/uL (0.1-1.0); MONO % 6.9 % (3.0-9.0); NEUT # 5.6 10*3/uL (2.3-7.9); NEUT % 81.5 % (47.0-73.0); PLATELET COUNT AUTOMATED 258 10*3/uL (130-400); RED CELL DISTRI WIDTH 15.1 % (0-14.5); WHITE BLOOD COUNT 6.8 10*3/uL (4.8-10.8)
[2019-09-08 18:30] LABS: ABG BASE EXCESS 5.5 mmol/L (-2.0-2.0); ARTERIAL BLOOD GAS PH 7.476 (7.35-7.45)
[2019-09-08 18:44] LABS: ALBUMIN 2.5 gm/dl (3.1-4.5); ALKALINE PHOSPHATASE 100 U/L (45-117); BUN 30 mg/dl (7-24); CHLORIDE 101 mmol/L (98-107); CREATININE 1.01 mg/dL (0.70-1.30); POTASSIUM 3.6 mmol/L (3.5-5.1); SGOT/AST 15 IU/L (3-35); SGPT/ALT 21 U/L (12-78); SODIUM 137 mmol/L (136-145); TOTAL PROTEIN 6.9 gm/dL (6.4-8.2)
[2019-09-08 20:11] LABS: BILIRUBIN NEGATIVE (NEGATIVE); BLOOD NEGATIVE (NEGATIVE); CLARITY CLEAR (CLEAR); COLOR YELLOW (YELLOW); GLUCOSE NEGATIVE (NEGATIVE); KETONE NEGATIVE (NEGATIVE); LEUKO ESTERASE NEGATIVE (NEGATIVE); NITRITE NEGATIVE (NEGATIVE); UROBILINOGEN 0.2 E.U./dl (0.2-1.0)
[2019-09-09] VITALS: BP 139/61
[2019-09-09 08:00] VITALS: BP 118/60; BP 156/90
[2019-09-09 12:00] VITALS: BP 130/62; BP 160/82
[2019-09-09 16:00] VITALS: BP 102/54
[2019-09-09 20:00] VITALS: BP 104/37
[2019-09-10] VITALS: BP 93/52
[2019-09-10 08:00] VITALS: BP 122/46
[2019-09-10 12:00] VITALS: BP 121/75
[2019-09-10 16:30] VITALS: BP 138/45
[2019-09-10 20:00] VITALS: BP 117/62
[2019-09-10 23:58] VITALS: BP 100/42
[2019-09-11 06:53] LABS: BASO % 0.1 % (0.0-1.0); EOS # 0.2 10*3/uL (0.0-0.4); EOS % 2.4 % (1.0-4.0); HEMATOCRIT 32.5 % (42.0-52.0); HEMOGLOBIN 9.7 g/dl (14.0-18.0); LYMPH # 0.7 10*3/uL (1.3-4.4); LYMPH % 9.1 % (27.0-41.0); MEAN CELL VOLUME 90.8 fl (80.0-94.0); MEAN CORPUSCULAR HGB 27.1 pg (27.0-31.0); MEAN CORPUSCULAR HGB CONC 29.8 g/dl (33.0-37.0); MEAN PLATELET VOLUME 9.8 fl (9.6-12.3); MONO # 0.6 10*3/uL (0.1-1.0); NEUT # 6.1 10*3/uL (2.3-7.9); NEUT % 80.1 % (47.0-73.0); PLATELET COUNT AUTOMATED 324 10*3/uL (130-400); RED BLOOD COUNT 3.58 10*6/uL (4.50-5.90); RED CELL DISTRI WIDTH 15.2 % (0-14.5); WHITE BLOOD COUNT 7.6 10*3/uL (4.8-10.8)
[2019-09-11 07:25] LABS: BUN 27 mg/dl (7-24); CREATININE 0.88 mg/dL (0.70-1.30)
[2019-09-11 08:00] VITALS: BP 108/46
[2019-09-11 12:00] VITALS: BP 111/46
[2019-09-11 16:00] VITALS: BP 109/56
[2019-09-11 20:00] VITALS: BP 102/49
[2019-09-12] VITALS: BP 90/32
[2019-09-12 08:00] VITALS: BP 125/57
[2019-09-12 12:00] VITALS: BP 129/69
[2019-09-12 16:00] VITALS: BP 135/79
[2019-09-12 20:00] VITALS: BP 124/52
[2019-09-13] VITALS: BP 148/67
[2019-09-13 08:00] VITALS: BP 146/77
[2019-09-13 12:00] VITALS: BP 147/69
[2019-09-13 16:00] VITALS: BP 135/57
[2019-09-13 20:00] VITALS: BP 142/61
[2019-09-14] VITALS: BP 134/45
[2019-09-14 07:26] LABS: CHLORIDE 102 mmol/L (98-107); POTASSIUM 3.8 mmol/L (3.5-5.1); SODIUM 140 mmol/L (136-145)
[2019-09-14 07:28] LABS: BASO % 0.1 % (0.0-1.0); EOS # 0.3 10*3/uL (0.0-0.4); EOS % 3.6 % (1.0-4.0); HEMATOCRIT 30.3 % (42.0-52.0); HEMOGLOBIN 8.9 g/dl (14.0-18.0); LYMPH # 0.6 10*3/uL (1.3-4.4); LYMPH % 8.5 % (27.0-41.0); MEAN CELL VOLUME 90.2 fl (80.0-94.0); MEAN CORPUSCULAR HGB 26.5 pg (27.0-31.0); MEAN CORPUSCULAR HGB CONC 29.4 g/dl (33.0-37.0); MEAN PLATELET VOLUME 10.3 fl (9.6-12.3); MONO # 0.4 10*3/uL (0.1-1.0); MONO % 6.4 % (3.0-9.0); NEUT # 5.6 10*3/uL (2.3-7.9); NEUT % 81.3 % (47.0-73.0); PLATELET COUNT AUTOMATED 352 10*3/uL (130-400); RED BLOOD COUNT 3.36 10*6/uL (4.50-5.90); RED CELL DISTRI WIDTH 14.6 % (0-14.5); WHITE BLOOD COUNT 6.9 10*3/uL (4.8-10.8)
[2019-09-14 07:32] LABS: BUN 22 mg/dl (7-24); CREATININE 0.72 mg/dL (0.70-1.30)
[2019-09-14 08:00] VITALS: BP 94/74
[2019-09-14 12:00] VITALS: BP 142/71
[2019-09-14] MEDS ORDERED: VENTOLIN 02.5 MG/3 M NEB (14:31)
[2019-09-14] MEDS ORDERED: REQUIP2 MG PO (14:31)
[2019-09-14] MEDS ORDERED: HYDROCODONE-AC1 EAC1 PO (14:31)
[2019-09-14] MEDS ORDERED: MIRTAZAPINE15 M2 PO (14:31)
[2019-09-14] MEDS ORDERED: ZITHROMAX500 MG PO (14:33)
[2019-09-14] MEDS ORDERED: Lantus SC (14:33)
[2019-09-14 16:00] VITALS: BP 137/65
== END 2019-09-14 17:39 | disposition other institution (70) | DRG 628 ==
LOC: ED 15:06 → 4E 17:07 → EDHOLD 17:07 → 4E 17:20 → 5E 09-12 20:51
PROVIDERS: Emergency Medicine; Family Medicine; Internal Medicine; Podiatrist; Student in an Organized Health Care Education/Training Program; ADMIT Internal Medicine
PROC: 0W993ZZ Drainage of Right Pleural Cavity, Percutaneous Approach (ICD-10-PCS; principal; 2019-09-04)
PROC: 0W9B3ZZ Drainage of Left Pleural Cavity, Percutaneous Approach (ICD-10-PCS; principal; 2019-09-04)
PROC: 0QBN0ZX Excision of Right Metatarsal, Open Approach, Diagnostic (ICD-10-PCS; 2019-09-05)
PROC: 0QBN0ZZ Excision of Right Metatarsal, Open Approach (ICD-10-PCS; 2019-09-05)
PROC: 0HRMXK3 Replacement of Right Foot Skin with Nonautologous Tissue Substitute, Full Thickness, External Approach (ICD-10-PCS; 2019-09-05)
PROC: 02HV33Z Insertion of Infusion Device into Superior Vena Cava, Percutaneous Approach (ICD-10-PCS; 2019-09-06)
PROC: 02HV33Z Insertion of Infusion Device into Superior Vena Cava, Percutaneous Approach (ICD-10-PCS; 2019-09-10)
PROC: 02H633Z Insertion of Infusion Device into Right Atrium, Percutaneous Approach (ICD-10-PCS; 2019-09-14)
DX: E11.69 Type 2 diabetes mellitus with other specified complication (principal); E43 Unspecified severe protein-calorie malnutrition; J18.9 Pneumonia, unspecified organism; I50.43 Acute on chronic combined systolic (congestive) and diastolic (congestive) heart failure; G93.41 Metabolic encephalopathy; J96.20 Acute and chronic respiratory failure, unspecified whether with hypoxia or hypercapnia; M86.671 Other chronic osteomyelitis, right ankle and foot; J91.8 Pleural effusion in other conditions classified elsewhere; F23 Brief psychotic disorder; Z68.1 Body mass index [BMI] 19.9 or less, adult; M86.171 Other acute osteomyelitis, right ankle and foot; I11.0 Hypertensive heart disease with heart failure; E83.41 Hypermagnesemia; E11.649 Type 2 diabetes mellitus with hypoglycemia without coma; G25.81 Restless legs syndrome; E78.5 Hyperlipidemia, unspecified; R00.0 Tachycardia, unspecified; I25.10 Atherosclerotic heart disease of native coronary artery without angina pectoris; E11.51 Type 2 diabetes mellitus with diabetic peripheral angiopathy without gangrene; E11.42 Type 2 diabetes mellitus with diabetic polyneuropathy; I27.20 Pulmonary hypertension, unspecified; I25.5 Ischemic cardiomyopathy; Z96.651 Presence of right artificial knee joint; D64.9 Anemia, unspecified; E11.65 Type 2 diabetes mellitus with hyperglycemia; Z79.4 Long term (current) use of insulin; Z87.01 Personal history of pneumonia (recurrent); Z87.440 Personal history of urinary (tract) infections; Z95.3 Presence of xenogenic heart valve; Z95.1 Presence of aortocoronary bypass graft; Z83.3 Family history of diabetes mellitus; Z87.891 Personal history of nicotine dependence; Z82.49 Family history of ischemic heart disease and other diseases of the circulatory system; Z80.1 Family history of malignant neoplasm of trachea, bronchus and lung; Z84.89 Family history of other specified conditions; Z89.421 Acquired absence of other right toe(s); Z79.82 Long term (current) use of aspirin; Z79.899 Other long term (current) drug therapy

== ENCOUNTER 2019-09-15 09:24 | Inpatient (IN) | payer MEDICARE ==
[~2019-09-15] VITALS: Ht 177.8 cm; Wt 62.9 kg
[~2019-09-15 09:24] MED LIST changes: +ARGINAID POWDE1 EACH PO; +CEFEPIME2 GM/100 M IV; +HYDROCODONE-AC1 EAC1 PO; +Ipratropium Brom3 ML INH; +Lantus SC; +MIRTAZAPINE15 M2 PO; +NOVOLOG FL100 UNIT/2 SC; +ONDANSETRON HYDR4 M1 PO; +PEPCID40 MG PO; +REMERON15 M2 PO; +REQUIP2 MG PO; +TYLENOL325 M1 PO; +VANCO 750750 MG/250 IV; +VENTOLIN 02.5 MG/3 M NEB; +ZITHROMAX500 MG PO
[2019-09-15 09:28] VITALS: BP 163/85
[2019-09-15 10:01] LABS: BASO % 0.4 % (0.0-1.0); EOS # 0.1 10*3/uL (0.0-0.4); EOS % 1.7 % (1.0-4.0); HEMATOCRIT 29.5 % (42.0-52.0); HEMOGLOBIN 8.8 g/dl (14.0-18.0); LYMPH # 0.5 10*3/uL (1.3-4.4); LYMPH % 6.1 % (27.0-41.0); MEAN CELL VOLUME 89.4 fl (80.0-94.0); MEAN CORPUSCULAR HGB 26.7 pg (27.0-31.0); MEAN CORPUSCULAR HGB CONC 29.8 g/dl (33.0-37.0); MEAN PLATELET VOLUME 9.7 fl (9.6-12.3); MONO # 0.6 10*3/uL (0.1-1.0); MONO % 7.6 % (3.0-9.0); NEUT # 7.1 10*3/uL (2.3-7.9); PLATELET COUNT AUTOMATED 330 10*3/uL (130-400); RED CELL DISTRI WIDTH 14.9 % (0-14.5); WHITE BLOOD COUNT 8.4 10*3/uL (4.8-10.8)
[2019-09-15 10:17] LABS: ALBUMIN 2.5 gm/dl (3.1-4.5); ALKALINE PHOSPHATASE 130 U/L (45-117); BUN 26 mg/dl (7-24); CHLORIDE 102 mmol/L (98-107); CREATININE 0.87 mg/dL (0.70-1.30); POTASSIUM 3.9 mmol/L (3.5-5.1); SGOT/AST 38 IU/L (3-35); SGPT/ALT 26 U/L (12-78); SODIUM 137 mmol/L (136-145); TOTAL PROTEIN 7.1 gm/dL (6.4-8.2); VANCOMYCIN RANDOM 22.3 ug/mL
[2019-09-15 10:40] LABS: URINE AMPHETAMINES < 1000 (1000ng/ml); URINE BARBITURATES < 200 (200ng/ml); URINE BENZODIAZEPINES < 200 (200ng/ml); URINE CANNABINOIDS (THC) < 50 (50ng/ml); URINE COCAINE < 300 (300ng/ml); URINE METHADONE < 300 (300ng/ml); URINE OPIATES > 300 (300ng/ml)
[2019-09-15 10:42] LABS: URINE PHENCYCLIDINE < 25 (25ng/ml)
[2019-09-15 10:45] LABS: BILIRUBIN NEGATIVE (NEGATIVE); BLOOD 2+ (NEGATIVE); CLARITY SL CLOUDY (CLEAR); COLOR YELLOW (YELLOW); GLUCOSE NEGATIVE (NEGATIVE); KETONE NEGATIVE (NEGATIVE); NITRITE NEGATIVE (NEGATIVE); PH 6.5 (5.0-9.0); UROBILINOGEN 0.2 E.U./dl (0.2-1.0)
[2019-09-15 10:46] LABS: BACTERIA 2+; EPITHELIAL CELLS 20-25; LEUKO ESTERASE NEGATIVE (NEGATIVE); MUCOUS 1+
--- NOTE | 2019-09-15 11:37 | NUR ---
PT IN BED WITH SIDERAILS X2 UP. FAMILY AT BEDSIDE.
--- NOTE | 2019-09-15 11:47 | NUR ---
CT FOUND A LITTLE WHITE ROUND PILL IN BED WITH PT WITH THE INSCRIPTION OF MYLAN 216 ON ONE SIDE AND 40 ON THE OTHER. THE PILL WAS IDENTIFIED LASIX. PILL WAS DISPOSED OF.
--- NOTE | 2019-09-15 13:33 | NUR ---
BRAYAN NOTIFIED OF THE CONSULT FOR CONFUSION AND DR RIVER NOTIFIED OF THE CONSULT RE: RIGHT FOOT WOUND. OBTAINED ORDER FOR WOUND VAC PLACEMENT.
[2019-09-15 13:46] VITALS: BP 152/79
[2019-09-15 14:00] VITALS: BP 155/76
[2019-09-15 14:30] VITALS: BP 155/76
--- NOTE | 2019-09-15 14:30 | NUR ---
Time: 1429 A 74 year old MALE admitted to 5E under services of EILEEN HERMAN DO. Pt. arrived via stretcher from ER. Chief complaint: INCREASED CONFUSION AT THE [facility] EARLIER TODAY, NON-COMPLIANCE WITH NON-WEIGHT BEARING TO RIGHT FOOT. MIREYA YOUNG
--- NOTE | 2019-09-15 15:45 | NUR ---
OBTAINED ORDER TO KEEP WET TO DRY DRESSING TO RIGHT FOOT IN PLACE UNTIL WOUND VAC PLACED BY PODIATRY TOMORROW.
--- NOTE | 2019-09-15 17:23 | NUR ---
MEDICATED WITH PRN PO NORCO FOR C/O RIGHT KNEE PAIN.
--- NOTE | 2019-09-15 18:15 | NUR ---
PRN PO NORCO EFFECTIVE, PER PATIENT.
[2019-09-15 20:00] VITALS: BP 157/79
--- NOTE | 2019-09-15 22:13 | NUR ---
PATIENT REQUESTING PAIN MEDICATION FOR RIGHT LOWER LEG AND RIGHT FOOT PAIN RATED 7/10 ON 0/10 SCALE. NORCO ADMINISTERED PRESCRIBED. WILL MONITOR FOR EFFECTIVENESS.
--- NOTE | 2019-09-15 23:13 | NUR ---
PATIENT RESTING WITH EYES CLOSED. RESPIRATIONS EASY AND UNLABORED. BED ALARM ON AND CALL LIGHT IN REACH. WILL MONITOR.
[2019-09-16] VITALS: BP 142/58
--- NOTE | 2019-09-16 02:20 | NUR ---
24 HR chart check completed.
[2019-09-16 06:17] LABS: BASO % 0.3 % (0.0-1.0); EOS # 0.1 10*3/uL (0.0-0.4); HEMATOCRIT 25.1 % (42.0-52.0); HEMOGLOBIN 7.3 g/dl (14.0-18.0); LYMPH # 0.8 10*3/uL (1.3-4.4); LYMPH % 13.7 % (27.0-41.0); MEAN CELL VOLUME 89.6 fl (80.0-94.0); MEAN CORPUSCULAR HGB 26.1 pg (27.0-31.0); MEAN CORPUSCULAR HGB CONC 29.1 g/dl (33.0-37.0); MONO # 0.6 10*3/uL (0.1-1.0); MONO % 10.4 % (3.0-9.0); NEUT # 4.4 10*3/uL (2.3-7.9); NEUT % 73.4 % (47.0-73.0); PLATELET COUNT AUTOMATED 305 10*3/uL (130-400); RED CELL DISTRI WIDTH 14.7 % (0-14.5)
[2019-09-16 06:25] LABS: INTERNATIONAL NORM RATIO 0.9 (2.0-3.5)
[2019-09-16 06:43] LABS: ALBUMIN 2.1 gm/dl (3.1-4.5); BUN 23 mg/dl (7-24); CHLORIDE 108 mmol/L (98-107); POTASSIUM 3.8 mmol/L (3.5-5.1); SGOT/AST 31 IU/L (3-35); SODIUM 143 mmol/L (136-145)
[2019-09-16 06:45] LABS: ALKALINE PHOSPHATASE 103 U/L (45-117); CREATININE 0.73 mg/dL (0.70-1.30); PHOSPHOROUS 3.1 mg/dL (2.5-4.9); SGPT/ALT 24 U/L (12-78); TOTAL PROTEIN 5.9 gm/dL (6.4-8.2)
--- NOTE | 2019-09-16 07:50 | NUR ---
MEDICATED AT THIS TIME WITH PRN PO NORCO FOR RIGHT KNEE/LEG PAIN.
[2019-09-16 08:00] VITALS: BP 154/94
--- NOTE | 2019-09-16 08:50 | NUR ---
PRN PO NORCO EFFECTIVE, PER PATIENT.
--- NOTE | 2019-09-16 08:53 | NUR ---
PATIENT C/O BLURRED VISION/FEELING HOT, STATES MAY BE HAVING LOW BLOOD SUGAR. HE IS TALKING TO HIS ON THE PHONE AND EATING BREAKFAST, NO DISTRESS, SKIN WARM/DRY PINK. OBTAINED BEDSIDE GLUCOSE RESULT OF 168.
--- NOTE | 2019-09-16 11:00 | NUR ---
DR. GRIDER IN TO APPLY WOUNDVAC TO RIGHT FOOT.
[2019-09-16 12:00] VITALS: BP 163/79
--- NOTE | 2019-09-16 12:07 | NUR ---
MEDICATED WITH PRN PO NORCO FOR RIGHT FOOT PAIN AND IV ZOFRAN FOR C/O NAUSEA AT THIS TIME.
--- NOTE | 2019-09-16 13:31 | NUR ---
PRN PO NORCO AND ZOFRAN EFFECTIVE, PER PATIENT.
--- NOTE | 2019-09-16 14:00 | NUR ---
PHYSICAL THERAPY PT EVAL COMPLETED TODAY: FULL EVAL TO FOLLOW. RECOMMEND PT WHILE HERE TO ADDRESS DECREASED STRENGTH, BALANCE , INABILITY TO MAINTAIN NWB STATUS ON THE RLE, DECREASED ENDURANCE AND THUS DECREASED FUNCTIONAL MOBILITY. PT EVAL IS MODERATE COMPLEXITY: [id number]. D/C RECOMMENDATIONS: RETURN TO SNF HOWEVER HE IS STATING DURING EVAL HE WANTS TO GO HOME WITH AND HOME HEALTH. THANK YOU FOR REFERRAL RIGOBERTO PEDROZA PT
--- NOTE | 2019-09-16 14:25 | NUR ---
MEDICATED WITH PRN PO TYLENOL FOR RIGHT KNEE PAIN.
[2019-09-16 16:00] VITALS: BP 122/61
--- NOTE | 2019-09-16 16:10 | NUR ---
MEDICATED WITH PRN PO NORCO FOR RIGHT KNEE PAIN; TYLENOL GIVEN EARLIER WAS NOT EFFECTIVE.
--- NOTE | 2019-09-16 16:59 | NUR ---
ADMINISTEREDE CATH-DEMETRIA TO RED PORT OF RIGHT ARM PICC LINE PER ORDER.
--- NOTE | 2019-09-16 21:24 | NUR ---
PATIENT REQUESTING PAIN MEDICATION FOR RIGHT KNEE AND RIGHT FOOT PAIN RATED 8/10 ON 0/10 SCALE. NORCO ADMINISTERED PRESCRIBED. WILL MONITOR FOR EFFECTIVENESS.
[2019-09-16 22:04] VITALS: BP 141/67
--- NOTE | 2019-09-16 22:24 | NUR ---
PATIENT STATES THAT NORCO WAS EFFECTIVE FOR PAIN. WILL MONITOR.
[2019-09-17] VITALS: BP 106/47
--- NOTE | 2019-09-17 02:03 | NUR ---
24 HR chart check completed.
[2019-09-17 06:19] LABS: BASO % 0.3 % (0.0-1.0); EOS # 0.2 10*3/uL (0.0-0.4); EOS % 2.2 % (1.0-4.0); HEMATOCRIT 27.6 % (42.0-52.0); HEMOGLOBIN 8.1 g/dl (14.0-18.0); LYMPH # 0.9 10*3/uL (1.3-4.4); MEAN CELL VOLUME 90.2 fl (80.0-94.0); MEAN CORPUSCULAR HGB 26.5 pg (27.0-31.0); MEAN CORPUSCULAR HGB CONC 29.3 g/dl (33.0-37.0); MEAN PLATELET VOLUME 10.1 fl (9.6-12.3); MONO # 0.7 10*3/uL (0.1-1.0); MONO % 9.5 % (3.0-9.0); NEUT # 5.1 10*3/uL (2.3-7.9); NEUT % 74.7 % (47.0-73.0); PLATELET COUNT AUTOMATED 298 10*3/uL (130-400); RED BLOOD COUNT 3.06 10*6/uL (4.50-5.90); RED CELL DISTRI WIDTH 14.6 % (0-14.5); WHITE BLOOD COUNT 6.9 10*3/uL (4.8-10.8)
[2019-09-17 06:44] LABS: ALBUMIN 2.4 gm/dl (3.1-4.5); ALKALINE PHOSPHATASE 111 U/L (45-117); BUN 24 mg/dl (7-24); CHLORIDE 105 mmol/L (98-107); POTASSIUM 3.6 mmol/L (3.5-5.1); SGOT/AST 32 IU/L (3-35); SGPT/ALT 28 U/L (12-78); SODIUM 140 mmol/L (136-145); TOTAL PROTEIN 6.7 gm/dL (6.4-8.2)
--- NOTE | 2019-09-17 06:47 | NUR ---
PATIENT STATES HE FEELS SHORT OF BREATH. 02 95% ON 4L
--- NOTE | 2019-09-17 07:23 | NUR ---
PT C/O PAIN IN RIGHT FOOT 02/10. WILL MONITOR FOR EFFECTIVENESS.
--- NOTE | 2019-09-17 07:25 | NUR ---
PT C/O SOB. POX 96% ON 3 LITERS NC. PRN BREATHING TREATMENT GIVEN BY RESP. THERAPIST. PT ALSO C/O PAIN TO LEFT CHEST THAT RATES 2/10 ON PAIN SCALE. PT STATES THAT PAIN INCREASES WITH DEEP INSPIRATION BUT NOT WITH PALPATION. MEDICATED PT PER PRN ORDER WITH NORCO.
[2019-09-17 08:00] VITALS: BP 142/62
--- NOTE | 2019-09-17 08:30 | NUR ---
PT MUCH MORE COMFORTABLE AT THIS TIME.
--- NOTE | 2019-09-17 09:00 | NUR ---
case management visits with patient, he was recently discharged from the hospital and admitted to [facility] short term [facility]pc for iv antibiotics and wound care with a wound vac. discussed with patient returning to Rehab suites and he declined, stated he has talked to his and family and they want him to return home, educated him that he would have the wound vac and possibly iv antibiotics to administer at home, patient states his has administered iv antibiotics in the past and is able to do them, he also stated his son will be helping him at home too. discussed with him [facility] and he was receptive, he chose [facility], case management will send a referral for when patient is medically stable for discharge
--- NOTE | 2019-09-17 10:06 | NUR ---
KAVITHA MICHAUD [id number] Please refer to the physician's history and physical for past medical history, comorbid conditions, and allergies. Diagnosis: NON COMPLIANCE S/P FOOT SURGERY, RIGHT UNABLE TO Arian Score: 18,LOW OR NO RISK WOUND DESCRIPTIONS: WOUND #1 RIGHT 3RD DIGIT UNABLE TO VIEW FULLY. WHAT PART WAS VISABLE WAS BLACK IN COLOR. WOUND #2 RIGHT LATERAL FOOT INTACT WOUND VAC SET TO 200mmHg CONTINUOUS. NO LEAK INDICATED ON WOUND VAC SCREEN. DRESSING INTACT. Wound Number: 3 Location of the wound: LEFT HEEL Type of wound: CALLUS Thickness: Full Size: 0.7cm X 2.2cm X <0.1cm Tunneling: NONE Undermining: NONE Sinus Tract: NONE Presence of Exudate: NONE Amount: None Color: Lara Odor: None Periwound Skin Appearance: Normal Wound edges: CLOSED. CALLUS Pain (associated with wound): DENIED AT TIME OF ASSESSMENT How does patient state this happened? PATIENT STATES THAT THIS WOUND WAS A DIABETIC FOOT ULCER THAT HEALED UP AFTER HE SEEN DR. SNOW FOR VASCUALR INTERVENTION. If wound is on legs/feet or hands, capillary refill time, pulses, color temp, sensation: CAP REFILL < 3 SECONDS. Surface the patient is resting on: Isoflex SKIN PREVENTION RECOMMENDATION: 1. Pressure redistribution support surface as appropriate 2. Elevate heels 3. Remove boots/TEDS every shift and reapply 4. Head of bed 30 degrees as tolerated 5. Assess nutrition and hydration 6. Manage moisture 7. Avoid the use of containment devices while in bed 8. Use absorptive products on surfaces limit layers of linens on bed 9. Turn and reposition every 1-2 hours in bed and every 1 hour in chair as tolerated 10. Weight shifts every 15 minutes while up in chair 11. Offloading with pillows or device to keep heels elevated off bed 12. Monitor skin at least every shift 13. Inspect under medical devices twice a day WOUND TREATMENT RECOMMENDATIONS: CLARIFY WOUND VAC ORDER: LOCATION, CLEANING AGENT, TYPE OF FOAM, TARGET PRESSURE, INTENSITY, MODE OF THERAPY, HOW OFTEN TO CHANGE ALL ARE NEEDED IN THE ORDER. PODIATRY ALREADY ON CONSULT FOR BLE. LEFT HEEL: LEAVE OPEN TO AIR.
--- NOTE | 2019-09-17 10:30 | NUR ---
PHYSICAL THERAPY Patient seen this am 1:1 for therapy visit and was resting supine in bed upon therapist arrival. Patient identified by name / and presented with continuos O2-3L via NC, B heel protectors and R foot wound vac. Patient reports no c/o's of pain at this time and is NWB on R LE per physician order. Patient transfers supine to sit EOB CGA, needing a minute or so to collect himself. Patient completed sit to stand transfer CGA and ambulated with use of wh walker, CGA, 20'x 2 to bathroom, demonstrating 3 point gait pattern, requiring v/c to slow camron down to improve safety awareness. Patient returned to supine in bed and remained with call light, tray table, telephone, B heel protectors, B LE compression pumps, bed alarm for safety. Will continue per POC as tolerated, total treatment time 16 minutes. Larry Robin, CRUSHER SUPERVISOR
--- NOTE | 2019-09-17 10:36 | NUR ---
Patient came back in from [facility]. The facililty is stating he is no longer appropriate for [facility] but they would be willing to take him to [facility]. Patient is now stating he wants to go home.
--- NOTE | 2019-09-17 10:45 | NUR ---
Occupational Therapy evaluation completed on four with full evaluation to follow. Recommend occupational therapy per plan of care and SNF vs home with HH SN, OT, and PT with 24/01 supervision assist pending patient's progress. Patient would like to return home with HH and "do my stuff at home." Patient complexity is mod, [id number]. Thank you for the referral. Fernanda Mcgregor, OTR/L
--- NOTE | 2019-09-17 11:24 | NUR ---
Dr. Shelby notified of wound care recommendations.
--- NOTE | 2019-09-17 11:41 | NUR ---
Dr. Arshad notified of wound vac orders needed.
[2019-09-17 12:00] VITALS: BP 144/64
--- NOTE | 2019-09-17 13:46 | NUR ---
PATIENT MEDICATED WITH NORCO AT THIS TIME PER ORDER FOR COMPLAINTS OF PAIN 7/10 IN RIGHT FOOT. WILL MONITOR FOR EFFECTIVENESS.
--- NOTE | 2019-09-17 14:30 | NUR ---
PER PATIENT, PRN MEDICATION HAS BEEN EFFECTIVE.
--- NOTE | 2019-09-17 15:21 | NUR ---
PHYSICAL THERAPY Screen and PT eval received pt has been evaluated and is on caseload thank you Kathy Nassar PT
[2019-09-17 16:00] VITALS: BP 140/71
--- NOTE | 2019-09-17 19:38 | NUR ---
PATIENT RESTING IN BED WITH NO NEEDS MADE. STATES HE IS HAVING SOME PAIN IN HIS RIGHT FOOT. ALERT TO TIME AND PLACE. BED ALARM ON, BED IN LOW POSITION, CALL LIGHT IN REACH
[2019-09-17 20:00] VITALS: BP 148/72
--- NOTE | 2019-09-17 21:26 | NUR ---
MEDICATED WITH PRN NORCO FOR C/O LEG PAIN, WILL MONITOR
--- NOTE | 2019-09-17 21:30 | NUR ---
WOUND VAC BEEPING AT THIS TIME DUE TO LEAKING.
--- NOTE | 2019-09-17 21:55 | NUR ---
DR. RIVER CONTACTED AT THIS TIME IN REFERENCE TO WOUND VAC ALARMING LOW VACCUUM PRESSURE, ORDERED TO REMOVE WOUND VAC DRESSING AND APPLY A WET TO DRY DRESSING BEING CAUTIOUS OF THE SKIN GRAPH UNTIL PODIATRY CAN SEE PATIENT IN AM.
[2019-09-18] VITALS: BP 150/70
--- NOTE | 2019-09-18 00:19 | NUR ---
WOUND VAC REMOVED AT THIS TIME WITH WET TO DRY DRESSING APPLIED PER PODIETRY RESIDENT'S ORDER. SKIN GRAFT REMAINS INTACT TO WOUND. PATIENT DENIES ANY PAIN.
--- NOTE | 2019-09-18 04:40 | NUR ---
PATIENT REQUESTING BLOOD SUGAR CHECK. BLOOD SUGAR IS 217
--- NOTE | 2019-09-18 06:09 | NUR ---
BLOOD SUGAR 247. PATIENT STATES HE DOES NOT WANT ANY INSULIN UNTIL HE EATS HIS BREAKFAST.
[2019-09-18 06:41] LABS: BASO % 0.3 % (0.0-1.0); EOS # 0.1 10*3/uL (0.0-0.4); EOS % 0.8 % (1.0-4.0); HEMATOCRIT 27.4 % (42.0-52.0); HEMOGLOBIN 7.9 g/dl (14.0-18.0); LYMPH # 0.5 10*3/uL (1.3-4.4); LYMPH % 6.5 % (27.0-41.0); MEAN CELL VOLUME 90.7 fl (80.0-94.0); MEAN CORPUSCULAR HGB 26.2 pg (27.0-31.0); MEAN CORPUSCULAR HGB CONC 28.8 g/dl (33.0-37.0); MEAN PLATELET VOLUME 10.1 fl (9.6-12.3); MONO # 0.6 10*3/uL (0.1-1.0); PLATELET COUNT AUTOMATED 258 10*3/uL (130-400); RED BLOOD COUNT 3.02 10*6/uL (4.50-5.90); RED CELL DISTRI WIDTH 14.6 % (0-14.5); WHITE BLOOD COUNT 7.1 10*3/uL (4.8-10.8)
[2019-09-18 08:00] VITALS: BP 160/70
--- NOTE | 2019-09-18 09:00 | NUR ---
case management visits with patient, he will return home and not return to Rehab suites when medically stable, he stated his would like his home health company to be [facility], will send referral to [facility] for when patient is medically stable for discharge, case management will follow
--- NOTE | 2019-09-18 09:37 | NUR ---
OT NOTE Pt was seen this A.M. 1:1 for 25 minute OT session. Upon arrival pt was supine in bed. Pt identified by name and and had no complaints at this time. Pt presented to therapy with continuous 4L-O2 via NC which he remained on throughout the entire session. Pt transferred supine to sit EOB with SBA. Multiple sit to stand transfers completed from bed level with CGA and use of w/w for UE support. Upon inital rise pt had LOB to the L that required Wes to correct. Functional mobility was then completed to the bathroom with CGA and use of w/w, throughout pt had three LOB requiring Wes to correct and was 100% compliant with NWB to RLE throughout. Pt transferred on/off standard commode with CGA and use of grab bar for UE support. Clothing management completed with CGA and toilet hygiene completed with SBA while seated. Pt then returned to the EOB where his dynamic standing balance was challenged. While weight shifting, crossing midline, and reaching over all planes pt was able to maintain F- standing balance requiring Wes/UE support. Pt was left supine in bed with call light in hand, tray table in place, and bed alarm activated for safety. Continue with POC as able. STELLA Kee
--- NOTE | 2019-09-18 11:05 | NUR ---
PHYSICAL THERAPY TREATMENT TIME: IN 9:15 AM Patient presented to therapy in supine with head of bed elevated and bed alarm activated. Patient gives informed consent for treatment. Patient was identified by name and on wristband. Patient is on spO2 VIA NASAL CANULA. Patient performed supine to sitting on EOB with SBA. Patient sat on EOB with SBA. Patient completed sit to stand from EOB with CGA. Patient performed ambulation with Wh Walker with CGA X 1 for 30' x 1 WITH MODERATE SOB AND VERBAL CUES REQUIRED FOR UPRIGHT POSTURE. Patient sit to stand out of low chair with MIN A X 1. Patient ambulated again with Wh Walker and CGA X 1 for 40' x 1 with no LOB and moderate SOB. Patient transferred back to supine in bed with SBA. Patient was left in supine in bed with head of bed elevated, call light within reach and bed alarm activated. pATIENT'S o2 sat WAS RECORDED 91% POST AMBULATING and this increased to 98% after short rest. Patient was 1:1 with this GRAIN FARMER for 21 minutes total. SILVIA MCCOY GRAIN FARMER
[2019-09-18 12:00] VITALS: BP 147/68
--- NOTE | 2019-09-18 14:11 | NUR ---
WOUND VAC FORM FAXED TO SURGERY, SPOKE WITH CHERY IN SURGERY AND SHE WILL PUT FORM WITH CHART FOR PODIATRY TO FILL OUT AND SIGN TOMORROW WHEN PT IN SURGERY.
[2019-09-18 16:00] VITALS: BP 140/68
[2019-09-18 20:00] VITALS: BP 150/69
--- NOTE | 2019-09-18 20:41 | NUR ---
PATIENT SITTING ON SIDE OF BED WITH BED ALARM ON. PATIENT STATES HIS "WATER TANK" NEEDS PLUGGED IN. PATIENT IS REFFERING TO HIS WOUND VAC WHICH IS ALREADY PLUGGED IN AND WORKING. PATIENT REORIENTED TO TIME AND PLACE. BED IN LOW POSITION, CALL LIGHT IN REACH
[2019-09-19] VITALS (8 sets, daily range): BP systolic 118–160; BP diastolic 55–78
--- NOTE | 2019-09-19 04:49 | NUR ---
PATIENT PULLED PICC LINE OUT. MEASURED AT 44. DR THOMPSON MADE AWARE.
[2019-09-19 06:42] LABS: BASO % 0.3 % (0.0-1.0); EOS # 0.1 10*3/uL (0.0-0.4); HEMATOCRIT 27.7 % (42.0-52.0); HEMOGLOBIN 8.2 g/dl (14.0-18.0); LYMPH # 0.5 10*3/uL (1.3-4.4); LYMPH % 7.3 % (27.0-41.0); MEAN CELL VOLUME 91.1 fl (80.0-94.0); MEAN CORPUSCULAR HGB CONC 29.6 g/dl (33.0-37.0); MEAN PLATELET VOLUME 10.4 fl (9.6-12.3); MONO # 0.5 10*3/uL (0.1-1.0); MONO % 7.5 % (3.0-9.0); NEUT # 5.9 10*3/uL (2.3-7.9); NEUT % 83.6 % (47.0-73.0); PLATELET COUNT AUTOMATED 255 10*3/uL (130-400); RED BLOOD COUNT 3.04 10*6/uL (4.50-5.90); RED CELL DISTRI WIDTH 14.6 % (0-14.5); WHITE BLOOD COUNT 7.1 10*3/uL (4.8-10.8)
--- NOTE | 2019-09-19 08:48 | NUR ---
PATIENT IN SURGERY FOR I&D OF RIGHT FOOT WITH [employer] GRAFT AND POSSIBLE AMPUTATION OF 3RD TOE. PATIENT HAS A WOUND VAC AND WE ARE UNABLE TO REMOVE DRESSING TO TAKE PICTURES.
--- NOTE | 2019-09-19 10:00 | NUR ---
OT NOTE Attempted to see pt this A.M. for OT session and upon arrival pt was out of the room for surgery. Will check back at a later time/date and continue with POC as able. FAHAD Kee/Pedro
--- NOTE | 2019-09-19 10:08 | NUR ---
PHYSICAL THERAPY Patient is in surgery at this time 10:09 AM. WILL CHECK BACK THIS AFTERNOON WITH PATIENT. SILVIA MCCOY SLEEPING CAR CONDUCTOR
--- NOTE | 2019-09-19 12:06 | NUR ---
WOUND VAC FORM, FACE SHEET AND PODIATRY CONSULT FAXED TO [facility].
--- NOTE | 2019-09-19 12:19 | NUR ---
FAXED SCRIPS AND DOCUMENTATION TO [facility] FOR HOME EQUIPMENT.
--- NOTE | 2019-09-19 12:30 | NUR ---
OT NOTE Pt was seen this P.M. 1:1 for 20 minute OT session. Upon arrival pt was supine in bed. Pt identified by name and and had no complaints at this time. Pt presented to therapy with continuous 4L-O2 via NC and wound vac to RLE which he remained on throughout the entire session. Pt transferred supine to sit EOB with SBA. Sit to stand completed from bed level with CGA and use of w/w for UE support. Upon inital rise pt had multiple LOB that required Wes to correct. Functional mobility was then completed to the bathroom with CGA and use of w/w, Throughout pt was 100% compliant with NWB to E. Pt transferred on/off standard commode with CGA and use of grab bar.
--- NOTE | 2019-09-19 12:34 | NUR ---
PHYSICAL THERAPY TREATMENT TIME: OUT 12:35 20 MINUTES Patient presented to therapy in sitting AT BEDSIDE EATING LUNCH. Patient had surgery this AM on R foot. patient gives in
--- NOTE | 2019-09-19 13:03 | NUR ---
PHYSICAL THERAPY TREATMENT TIME: 12:45 AM 20 MINUTES Patient presented to therapy in supine with head of bed elevated and bed alarm activated. Patient gives informed consent for treatment. Patient was identified by name and on wristband. Patient performed supine to sitting on EOB transfer with SBA. Patient will sit on EOB with SBA. Patient completed sit to stand from EOB with SBA-CGA. Patient performed ambulation 15' x 1 with CGA with Wh Walker and 4 LITERS OF SPo2 via nasal canula sat in low chair with SBA-CGA. Patient completed sit to stand from low chair with SBA. Patient ambulated another 15' x 1 with Wh Walker and CGA with no LOB and mild SOB. Patient sat on EOB with SBA. Patient completed sit to supine in bed with SBA. Patient was left in supine with head of bed elevated, call light within reach and bed alarm activated. Patient was 1:1 with this BEHAVIOR SUPPORT SPECIALIST FOR 20 MINUTES TOTAL. SILVIA MCCOY BEHAVIOR SUPPORT SPECIALIST
--- NOTE | 2019-09-19 14:30 | NUR ---
RECEIVED A MESSAGE FROM CHAY FROM [facility], HE STATES THAT WOUND VAC WAS AUTORIZED. THEY WERE REQUESTING NAME OF HOME HEALTH COMPANY THAT WILL BE DOING DRESSINGS.
--- NOTE | 2019-09-19 14:42 | NUR ---
RETURNED CALL TO CHAY AT [facility] AND PROVIDED HIM WITH [facility] AND PHONE NUMBER. HE STATES WOUND VAC WILL BE AUTORIZED AND THEY WILL DELIVER IT TOMORROW TO [facility]. THEY WILL CALL WITH TIME.
--- NOTE | 2019-09-19 23:54 | NUR ---
24 HR chart check completed.
[2019-09-20] VITALS: BP 118/66
--- NOTE | 2019-09-20 02:05 | NUR ---
Patient resting quietly with no c/o discomfort. Respirations easy and regular. Vital signs stable. No overt distress. BEA SANDOVAL
[2019-09-20 06:14] LABS: BASO % 0.4 % (0.0-1.0); EOS # 0.1 10*3/uL (0.0-0.4); EOS % 0.7 % (1.0-4.0); HEMATOCRIT 26.6 % (42.0-52.0); HEMOGLOBIN 7.7 g/dl (14.0-18.0); LYMPH # 0.6 10*3/uL (1.3-4.4); MEAN CELL VOLUME 91.7 fl (80.0-94.0); MEAN CORPUSCULAR HGB 26.6 pg (27.0-31.0); MEAN CORPUSCULAR HGB CONC 28.9 g/dl (33.0-37.0); MEAN PLATELET VOLUME 10.8 fl (9.6-12.3); MONO # 0.6 10*3/uL (0.1-1.0); NEUT # 5.6 10*3/uL (2.3-7.9); NEUT % 81.5 % (47.0-73.0); PLATELET COUNT AUTOMATED 252 10*3/uL (130-400); RED CELL DISTRI WIDTH 14.7 % (0-14.5); WHITE BLOOD COUNT 6.9 10*3/uL (4.8-10.8)
[2019-09-20 06:48] LABS: BUN 26 mg/dl (7-24)
[2019-09-20 08:00] VITALS: BP 150/82
--- NOTE | 2019-09-20 08:40 | NUR ---
OT NOTE Pt was seen this A.M. 1:1 for 20 minute OT session. Upon arrival pt was supine in bed. Pt identified by name and and had no complaints at this time. Pt presented to therapy with continuous 3L-O2 via NC and wound vac to RLE which he remained on throughout the entire session. Pt transferred supine to sit EOB with SBA. While seated pt donned sock with supervision. Sit to stand completed from bed level with CGA and use of w/w for UE support. Upon inital rise pt had LOB to the L that required Wes to correct. Functional mobility was then completed to the bathroom with CGA and use of w/w for UE support. Pt transferred on/off standard commode with CGA and use of grab bar for UE support. Pt then stood sink side while washing his hands with CGA, throughout static standing pt required verbal prompts for following NWB due to being 75% compliant. While maintaining NWB at sink side pt was able to maintain F- static standing balance. Functional mobility was then completed back to the EOB where he transferred sit to supine with SBA. Throughout mobility pt's was 100% compliant with NWB to RLE. There he was left with call light in hand, tray table in place, and bed alarm activated for safety. Continue with POC as able. STELLA Kee
--- NOTE | 2019-09-20 08:58 | NUR ---
PHYSICAL THERAPY TREATMENT TIME: OUT 08:32 AM Patient presented to therapy in sitting on EOB with 3 liters of spO2 VIA NASAL CANULA and complaint of fatigue. Patient gives informed consent for treatment. Patient was identified by name and on wristband. Patient performed sit to stand from EOB with SBA-CGA. Patient ambulated with Wh Walker 20' x 2 with CGA and a seated rest break in a low chair at the end of the 1st 20' distance. Patient completed sit to stand from LOW chair with CGA-MIN A X 1 with verbal cues for pushing off the armrests of chair with hands. Patient ambulated another 20' x 1 with CGA and increased fatigue requiring the patient to sit on EOB for rest. Patient transferred back ot supine in bed with SBA. Patient requested to transfer back to supine in bed due to increased fatigue. Patient was left in supine in bed with call light within reach, bed alarm activated and O2 CONNECTED to the wall outlet with 3 liters of spO2 via nasal canula. Patient was 1:1 with this CLIENT ASSOCIATE for 17 minutes total. SILVIA MCCOY CLIENT ASSOCIATE
[2019-09-20 11:05] LABS: ACID FAST SPEC PROCESSING Tissue Grinding (.)
[2019-09-20 11:05] LABS: ACID FAST SPEC PROCESSING Tissue Grinding (.)
[2019-09-20 12:00] VITALS: BP 152/78
--- NOTE | 2019-09-20 12:30 | NUR ---
OT NOTE Pt was seen this P.M. 1:1 for second OT session consisting of 15 minutes. Upon arrival pt was supine in bed. Pt identified by name and and had no complaints at this time. Pt presented to therapy with wound vac to RLE and continuous 4L-O2 via NC which he remained on throughout the entire session. Pt transferred supine to sit EOB with SBA. Sit to stand completed from bed level with CGA and use of w/w. Functional mobility was then completed to the bathroom with CGA and use of w/w with bouts of unsteady stance that required Wes to correct. Pt transferred on/off standard commode and completed toileting task with CGA. Functional mobility completed back to the recliner with CGA. Throughout pt was 100% compliant with NWB to RLE. Challenged pt's dynamic standing tolerance needed for increased I and enhanced safety. While crossing midline, reaching over all planes, and weight shifting pt was able to maintain F- standing balance. Pt was left sitting upright in the recliner with call light in hand, tray table in place, and body alarm activated for safety. Continue with POC as able. FAHAD Kee/Pedro
--- NOTE | 2019-09-20 12:48 | NUR ---
WOUND VAC DELIVERED AND IS IN PT ROOM TO BE APPLIED PRIOR TO PT DISCHARGE. STILL WAITING FOR CULTURE RESULTS TO SET UP IV ANTIBIOTICS IF NEEDED.
--- NOTE | 2019-09-20 13:12 | NUR ---
PHYSICAL THERAPY Patient presents to therapy in supine with head of bed elevated and bed alarm activated. Patient gives informed consent for treatment. Patient was identified by name and on wristband. Patient is on 4 liters of spO2 via nasal canula. Patient has wound vac on R foot. Patient performed supine to sitting on EOB with SBA. Patient sit to stand from EOB with SBA-CGA. Patient ambulated with Wh Walker and CGA for 40' x 1 with no LOB and minimal SOB. Patient transferred into bedside chair with SBA-CGA. Patient sit to stand out of low chair with CGA-MIN A X 1. Patient was left in bedside chair with call light within reach, chair alarm tested and attached to patient and connected to wall outlet with 4 liters of spO2. Patient was 1:1 with this FURNITURE ASSOCIATE for 17 minutes total. SILVIA MCCOY FURNITURE ASSOCIATE
[2019-09-20 16:00] VITALS: BP 125/54
[2019-09-20 20:00] VITALS: BP 117/51
[2019-09-21] VITALS: BP 125/46
[2019-09-21 06:03] LABS: BUN 26 mg/dl (7-24); CHLORIDE 112 mmol/L (98-107); CREATININE 0.78 mg/dL (0.70-1.30); POTASSIUM 3.4 mmol/L (3.5-5.1); SODIUM 147 mmol/L (136-145)
[2019-09-21 06:11] LABS: BASO % 0.3 % (0.0-1.0); EOS # 0.1 10*3/uL (0.0-0.4); EOS % 0.8 % (1.0-4.0); HEMATOCRIT 24.2 % (42.0-52.0); LYMPH # 0.8 10*3/uL (1.3-4.4); LYMPH % 12.9 % (27.0-41.0); MEAN CORPUSCULAR HGB 26.6 pg (27.0-31.0); MEAN CORPUSCULAR HGB CONC 28.9 g/dl (33.0-37.0); MEAN PLATELET VOLUME 10.6 fl (9.6-12.3); MONO # 0.6 10*3/uL (0.1-1.0); MONO % 9.2 % (3.0-9.0); NEUT # 4.6 10*3/uL (2.3-7.9); NEUT % 76.6 % (47.0-73.0); PLATELET COUNT AUTOMATED 227 10*3/uL (130-400); RED BLOOD COUNT 2.63 10*6/uL (4.50-5.90); RED CELL DISTRI WIDTH 14.9 % (0-14.5)
[2019-09-21 08:00] VITALS: BP 157/72
--- NOTE | 2019-09-21 08:15 | NUR ---
HOME O2 ASSESSMENT: BP: 157/72, HR 85, RR 18, PULSE OX 85% ON ROOM AIR AT REST. PLACED 2 L/M ON PATIENT, SAT >89% AT REST, INCREASED TO 3 L/M-SAT >93% AT REST. PATIENT IS UNABLE TO AMBULATE. RN NOTIFIED. [email or web address] NOTIFIED OF O2 ORDER.
--- NOTE | 2019-09-21 08:25 | NUR ---
OT NOTE Pt was seen this A.M. 1:1 for 18 minute OT session. Upon arrival pt was supine in bed. Pt identified by name and and had no complaints at this time. Pt presented to therapy with continuous 3L-O2 via NC and wound vac to RLE which he remained on throughout the entire session. Pt transferred supine to sit EOB with SBA. Sit to stand then completed from bed level with CGA and use of w/w, Pt continues to be unsteady upon inital rise requiring Wes to correct. Functional mobility was then completed into the bathroom with CGA and use of w/w. There he stood sink side while completing a grooming task. While standing without UE support pt had multiple LOB to the L that required modA to correct. Functional mobility was then completed back to the EOB where he was left sitting upright with call light in hand, tray table in place, and bed alarm activated for safety. Continue with POC as able. FAHAD Kee/Pedro
--- NOTE | 2019-09-21 08:27 | NUR ---
PHYSICAL THERAPY TREATMENT TIME: 08:10 AM - 08:25 AM 15 MINUTES Patient presented to therapy in sitting on EOB with report of no pain and being fatigued this morning. Patient is on 3 liters of spO2 VIA NASAL CANULA. Patient is NWB on the R LE. Patient gives informed consent for treatment. Patient was identified by name and on wristband, Patient performed sit to stand from EOB with CGA-SBA. Patient completed ambulation with Wh Walker and CGA for 20' x 2 with no LOB and moderate SOB. Patient then rested on EOB for 4 minutes. Patient completed sit to stand again from EOB with CGA-SBA. Patient ambulated the 2nd time with Wh Walker and CGA for 40' x 1 with no LOB and moderate SOB. Patient was left on EOB with call light within reach, bed alarm activated, and O2 connected to wall outlet with 3 liters of sopO2 via nasal canula. Patient was 1:1 with this SHEET CUTTER for 15 minutes total. SILVIA MCCOY SHEET CUTTER
--- NOTE | 2019-09-21 10:26 | NUR ---
HOME WOUND VAC THAT WAS DELIVERED YESTERDAY WAS APPLIED TODAY BY DR RIVER. PT TOLERATED WELL. WILL MONITOR
[2019-09-21] MEDS ORDERED: RIVASTIGMINE1 EAC1 T (11:52)
[2019-09-21] MEDS ORDERED: VANCO 750750 MG/250 IV (11:52)
[2019-09-21] MEDS ORDERED: HYDROXYZINE PAM25 M1 PO (11:52)
[2019-09-21] MEDS ORDERED: OLANZAPINE5 MG PO (11:52)
[2019-09-21] MEDS ORDERED: MERREM IV1 GM IV (11:52)
[2019-09-21] MEDS ORDERED: NAMENDA-5 PO (11:52)
[2019-09-21 12:00] VITALS: BP 114/60
--- NOTE | 2019-09-21 12:15 | NUR ---
REFERRAL FAXED TO [facility] [facility] FOR REVIEW.
--- NOTE | 2019-09-21 12:40 | NUR ---
PHYSICAL THERAPY CO-SIGN I approve of the Physical Therapy notes written above. Kathy Nassar PT
--- NOTE | 2019-09-21 12:43 | NUR ---
OCCUPATIONAL THERAPY CO-SIGN I approve of the Occupational Therapy notes written above. ROSARIO JUDGE, OTR/L
--- NOTE | 2019-09-21 13:44 | NUR ---
RECEIVED A CALL FROM [employer]. THE PT WILL HAVE A COST OF $150 A WEEK FOR MEDS AND 13.80 A DAY FOR SUPPLIES. TALKED WITH PT AND HE STATES IT IS OK. ALSO CALLED PT HOME TO TALK TO . TALKED TO GRAND DAUGHTER WHO STATES HER GRANDMOTHER IS HARD OF HEARING AND SHE WILL RELAY MESSAGE TO HER.
--- NOTE | 2019-09-21 14:00 | NUR ---
IV ANTIBIOTICS WILL BE DELIVERED TO PT HOME TONIGHT BY [facility] AND [facility] INFORMED THAT PT IS GOING HOME TONIGHT AND WILL NEED ANTIBIOTICS STARTED TOMORROW. DR STOCK INFORMED THAT PT CAN GO BUT HE STATED PICC IN NOT IN PROPER PLACEMENT AND THEY MAY NOT BE ABLE TO GET IT FIXED TODAY. WILL CONTINUE TO FOLLOW.
--- NOTE | 2019-09-21 15:00 | NUR ---
DR STOCK CALLED AND STATES PT WILL BE HERE UNTIL TUESDAY DUE TO PICC LINE NOT CORRECTLY POSITIONED AND THEY ARE UNABLE TO GET ANOTHER ONE IN TONIGHT. CALLED [facility] AND [facility] AND CANCELLED THEM FOR TOMORROW.
--- NOTE | 2019-09-21 15:50 | NUR ---
DR MARTINEZ HERE TO PUT PICC LINE IN. SPOKE WITH MARIELENA AT [facility] AND LEISA AT [facility] TO INFORM THEM THAT PT MAY STILL GO HOME TONIGHT. IF PICC IS IN BEFORE 430 I WILL CALL THEM BACK IF AFTER THAT I WILL PROVIED SOFÍA HOLBROOK WITH NUMBERS TO CALL TO SET UP MEDS.
[2019-09-21 16:00] VITALS: BP 121/66
--- NOTE | 2019-09-21 16:28 | NUR ---
PER DR MARTINEZ PICC IN PLACE AND OK TO USE. [facility] AND [facility] NOTIFIED. [facility] WITH DELIVER ANTIBIOTICS BY 8 AM TOMORROW AND HOME HEALTH HAS PT ON SCHEDULE TO SEE. DR STOCK NOTIFIED IT IS OK TO DISCHARGE PT TONIGHT.
--- NOTE | 2019-09-21 19:20 | NUR ---
Discharge instructions reviewed with patient/family. Patient receptive and verbalizes understanding. Follow-up care arranged. Written instructions given to patient/family. MADELYN ARIZA
== END 2019-09-21 19:20 | disposition home health service (06) | DRG 616 ==
LOC: ED 09:24 → 5E 12:44 → 4E 12:44 → EDHOLD 12:44 → 5E 13:06 → 4E 09-16 19:22
PROVIDERS: Emergency Medicine; Family Medicine; Internal Medicine; Podiatrist Foot & Ankle Surgery; Student in an Organized Health Care Education/Training Program; ADMIT Internal Medicine
PROC: 0HRMXK3 Replacement of Right Foot Skin with Nonautologous Tissue Substitute, Full Thickness, External Approach (ICD-10-PCS; principal; 2019-09-19)
PROC: 0Y6T0Z1 Detachment at Right 3rd Toe, High, Open Approach (ICD-10-PCS; principal; 2019-09-19)
PROC: 0QBN0ZZ Excision of Right Metatarsal, Open Approach (ICD-10-PCS; principal; 2019-09-19)
PROC: 02HV33Z Insertion of Infusion Device into Superior Vena Cava, Percutaneous Approach (ICD-10-PCS; 2019-09-21)
DX: E11.69 Type 2 diabetes mellitus with other specified complication (principal); J15.6 Pneumonia due to other Gram-negative bacteria; E43 Unspecified severe protein-calorie malnutrition; A48.0 Gas gangrene; E11.52 Type 2 diabetes mellitus with diabetic peripheral angiopathy with gangrene; F23 Brief psychotic disorder; I50.32 Chronic diastolic (congestive) heart failure; M86.8X7 Other osteomyelitis, ankle and foot; Z68.1 Body mass index [BMI] 19.9 or less, adult; I25.10 Atherosclerotic heart disease of native coronary artery without angina pectoris; I11.0 Hypertensive heart disease with heart failure; E78.5 Hyperlipidemia, unspecified; E11.65 Type 2 diabetes mellitus with hyperglycemia; R26.2 Difficulty in walking, not elsewhere classified; D64.9 Anemia, unspecified; R74.8 Abnormal levels of other serum enzymes; R74.0 Nonspecific elevation of levels of transaminase and lactic acid dehydrogenase [LDH]; R31.29 Other microscopic hematuria; F41.9 Anxiety disorder, unspecified; F39 Unspecified mood [affective] disorder; G31.84 Mild cognitive impairment of uncertain or unknown etiology; I25.5 Ischemic cardiomyopathy; G25.81 Restless legs syndrome; R80.9 Proteinuria, unspecified; Z96.651 Presence of right artificial knee joint; Z79.4 Long term (current) use of insulin; Z91.19 Patient's noncompliance with other medical treatment and regimen; Z95.1 Presence of aortocoronary bypass graft; Z87.01 Personal history of pneumonia (recurrent); Z89.421 Acquired absence of other right toe(s); Z95.2 Presence of prosthetic heart valve; Z87.891 Personal history of nicotine dependence; Z82.49 Family history of ischemic heart disease and other diseases of the circulatory system; Z83.3 Family history of diabetes mellitus; Z80.1 Family history of malignant neoplasm of trachea, bronchus and lung; Z79.82 Long term (current) use of aspirin; Z79.899 Other long term (current) drug therapy

== ENCOUNTER 2019-09-23 11:11 | Emergency (ER) | payer MEDICARE ==
[~2019-09-23] VITALS: Ht 177.8 cm; Wt 64.9 kg
[~2019-09-23 11:11] MED LIST changes: +HYDROXYZINE PAM25 M1 PO; +MERREM IV1 GM IV; +NAMENDA-5 PO; +OLANZAPINE5 MG PO; +RIVASTIGMINE1 EAC1 T
[2019-09-23 11:39] LABS: BASO % 0.7 % (0.0-1.0); EOS # 0.1 10*3/uL (0.0-0.4); EOS % 1.6 % (1.0-4.0); HEMATOCRIT 27.1 % (42.0-52.0); LYMPH # 0.5 10*3/uL (1.3-4.4); LYMPH % 8.6 % (27.0-41.0); MEAN CELL VOLUME 90.6 fl (80.0-94.0); MEAN CORPUSCULAR HGB 26.8 pg (27.0-31.0); MEAN CORPUSCULAR HGB CONC 29.5 g/dl (33.0-37.0); MEAN PLATELET VOLUME 10.4 fl (9.6-12.3); MONO # 0.3 10*3/uL (0.1-1.0); MONO % 5.6 % (3.0-9.0); NEUT # 4.6 10*3/uL (2.3-7.9); NEUT % 83.3 % (47.0-73.0); PLATELET COUNT AUTOMATED 245 10*3/uL (130-400); RED BLOOD COUNT 2.99 10*6/uL (4.50-5.90); RED CELL DISTRI WIDTH 14.8 % (0-14.5); WHITE BLOOD COUNT 5.5 10*3/uL (4.8-10.8)
[2019-09-23 11:53] LABS: ACT PARTIAL THROMBO TIME 27.3 SECONDS (20.0-32.1)
[2019-09-23 11:58] LABS: ALBUMIN 2.5 gm/dl (3.1-4.5); ALKALINE PHOSPHATASE 136 U/L (45-117); BUN 25 mg/dl (7-24); CHLORIDE 106 mmol/L (98-107); CREATININE 0.83 mg/dL (0.70-1.30); POTASSIUM 3.6 mmol/L (3.5-5.1); SGOT/AST 20 IU/L (3-35); SGPT/ALT 28 U/L (12-78); SODIUM 140 mmol/L (136-145); TOTAL PROTEIN 6.8 gm/dL (6.4-8.2); TROPONIN I < 0.015 ng/ml (<0.045)
[2019-09-23 14:29] LABS: BODY FLUID WBC 62 /uL
[2019-09-23] MEDS ORDERED: Ipratropium Brom3 ML INH (14:49)
[2019-09-23 15:13] LABS: BF LYMPHOCYTES 62 %; BF MACROPHAGES 10 %; BF MESOTHELIALS 2 %; BF MONOCYTES 4 %; BF NEUTROPHILS 22 %
== END 2019-09-23 14:38 | disposition home or self-care (01) ==
LOC: ED 11:11
PROVIDERS: Emergency Medicine
DX: J90 Pleural effusion, not elsewhere classified (principal); E78.5 Hyperlipidemia, unspecified; I50.9 Heart failure, unspecified; I11.0 Hypertensive heart disease with heart failure; M86.9 Osteomyelitis, unspecified; E11.43 Type 2 diabetes mellitus with diabetic autonomic (poly)neuropathy; Z79.899 Other long term (current) drug therapy; Z79.4 Long term (current) use of insulin; Z79.82 Long term (current) use of aspirin; Z87.891 Personal history of nicotine dependence

== ENCOUNTER → 2020-01-18 | Outpatient (CLI) | payer MEDICARE ==
[~2020-01-18] MED LIST changes: +CLOPIDOGREL75 MG PO; +POTASSIUM CHLO10 ME5 PO
[2020-01-18 12:13] LABS: BASO # 0.1 10*3/uL (0.0-0.1); BASO % 0.6 % (0.0-1.0); EOS # 0.6 10*3/uL (0.0-0.4); EOS % 6.8 % (1.0-4.0); HEMATOCRIT 29.8 % (42.0-52.0); LYMPH # 0.6 10*3/uL (1.3-4.4); LYMPH % 7.4 % (27.0-41.0); MEAN CELL VOLUME 85.1 fl (80.0-94.0); MEAN CORPUSCULAR HGB 26.9 pg (27.0-31.0); MEAN CORPUSCULAR HGB CONC 31.5 g/dl (33.0-37.0); MEAN PLATELET VOLUME 9.2 fl (9.6-12.3); MONO # 0.6 10*3/uL (0.1-1.0); MONO % 6.9 % (3.0-9.0); NEUT # 6.4 10*3/uL (2.3-7.9); NEUT % 77.9 % (47.0-73.0); PLATELET COUNT AUTOMATED 302 10*3/uL (130-400); RED CELL DISTRI WIDTH 13.6 % (0-14.5); WHITE BLOOD COUNT 8.3 10*3/uL (4.8-10.8)
[2020-01-18 12:32] LABS: BUN 27 mg/dl (7-24); CHLORIDE 101 mmol/L (98-107); CREATININE 0.91 mg/dL (0.70-1.30); POTASSIUM 4.4 mmol/L (3.5-5.1); SGOT/AST 15 IU/L (3-35); SGPT/ALT 15 U/L (12-78); SODIUM 136 mmol/L (136-145); TOTAL PROTEIN 7.2 gm/dL (6.4-8.2)
[2020-01-18 12:33] LABS: ALKALINE PHOSPHATASE 113 U/L (45-117)
== END | disposition home or self-care (01) ==
LOC: LAB 11:55
PROVIDERS: Specialist
DX: I10 Essential (primary) hypertension (principal); M86.171 Other acute osteomyelitis, right ankle and foot

== ENCOUNTER 2020-01-23 08:35 | Inpatient (IN) | payer MEDICARE ==
[2020-01-23] VITALS (9 sets, daily range): BP systolic 129–141; BP diastolic 55–70
[~2020-01-23] VITALS: Ht 177.8 cm; Wt 61.2 kg
[~2020-01-23 08:35] MED LIST changes: -CLOPIDOGREL75 MG PO; -POTASSIUM CHLO10 ME5 PO
[2020-01-23 09:04] LABS: BASO % 0.4 % (0.0-1.0); EOS # 0.4 10*3/uL (0.0-0.4); EOS % 5.6 % (1.0-4.0); HEMATOCRIT 29.8 % (42.0-52.0); LYMPH # 0.6 10*3/uL (1.3-4.4); LYMPH % 8.1 % (27.0-41.0); MEAN CELL VOLUME 85.6 fl (80.0-94.0); MEAN CORPUSCULAR HGB 26.7 pg (27.0-31.0); MEAN CORPUSCULAR HGB CONC 31.2 g/dl (33.0-37.0); MEAN PLATELET VOLUME 9.4 fl (9.6-12.3); MONO # 0.7 10*3/uL (0.1-1.0); MONO % 9.2 % (3.0-9.0); NEUT # 5.6 10*3/uL (2.3-7.9); NEUT % 76.3 % (47.0-73.0); PLATELET COUNT AUTOMATED 319 10*3/uL (130-400); RED BLOOD COUNT 3.48 10*6/uL (4.50-5.90); RED CELL DISTRI WIDTH 13.6 % (0-14.5); WHITE BLOOD COUNT 7.3 10*3/uL (4.8-10.8)
[2020-01-23 09:23] LABS: ALBUMIN 2.9 gm/dl (3.1-4.5); ALKALINE PHOSPHATASE 94 U/L (45-117); BUN 24 mg/dl (7-24); CHLORIDE 103 mmol/L (98-107); CREATININE 0.92 mg/dL (0.70-1.30); POTASSIUM 4.1 mmol/L (3.5-5.1); SGOT/AST 10 IU/L (3-35); SGPT/ALT 16 U/L (12-78); SODIUM 138 mmol/L (136-145); TOTAL PROTEIN 7.3 gm/dL (6.4-8.2)
--- NOTE | 2020-01-23 10:53 | NUR ---
PT TO [facility] FOR AMPUTATIONJ OF HIS RT FOOT, PICTURES WERE NOT TAKEN IN ER DUE INSTUCTIONS NOT TO REMOVE DRESSING BY SURGERY. PT WAS AOX3, DENIIED PAIN, IV WAS ESTABLISED WITH NS INFUSING, ZOSYN INFUSED VANCO STARTED IN OR. REPORTS GIVEN TO MARKUS IN SURGERY. PT WAS SENT WITH ALL LISTED BELONGINGS IN STABLE CONDITION. FAMILY IN LOBBY INFORMED.
--- NOTE | 2020-01-23 14:15 | NUR ---
Time: 1414 A 74 year old MALE admitted to under services of LEENA BLANK DO. Pt. arrived via bed from ER. Chief complaint: STATUS POST TRANSMETATARSAL AMPUTATION. . RAYMOND DENISE
--- NOTE | 2020-01-23 14:39 | NUR ---
PT TO BE TRANSFERRED TO [facility] FOR PROCEDURE IN HEART [facility]ENTER WITH DR. SNOW. PROCEDURE AT 1PM. NPO AT [address] THOMPSON AND DR. HENRIQUEZ NOTIFIED.
[2020-01-23] MEDS ORDERED: POTASSIUM CHLO10 ME5 PO (16:23)
[2020-01-23] MEDS ORDERED: CLOPIDOGREL75 MG PO (16:28)
--- NOTE | 2020-01-23 17:20 | NUR ---
DR. MCALLISTER, DR. SNOW AND DR. OG AWARE OF CONSULTS.
--- NOTE | 2020-01-23 20:00 | NUR ---
ASSUMED CARE OF PATIENT. ASSESSMENT IS COMPLETE. NO C/O OR S/S OF DISTRESS NOTED AT THIS TIME. BED IS LOW, LOCKED, ALARMED, AND CALL LIGHT IS WITHIN REACH. WILL CONTINUE TO MONITOR, SEE INTERVENTIONS.
--- NOTE | 2020-01-23 21:03 | NUR ---
PRN NORCO GIVEN FOR C/O RIGHT FOOT PAIN. CALL LIGHT IS WITHIN REACH. WILL MONITOR EFFECT.
--- NOTE | 2020-01-23 21:19 | NUR ---
SPOKE WITH DR. STOCK IN REGARDS TO CONTINUING PATIENT HOME MEDICATION. SEE CONTINUED MEDS IN MED REC.
--- NOTE | 2020-01-23 22:03 | NUR ---
NORCO EFFECTIVE PER PATIENT.
--- NOTE | 2020-01-23 23:35 | NUR ---
PRN MORPHINE GIVEN FOR RIGHT FOOT PAIN. CALL LIGHT IS WITHIN REACH.
[2020-01-24] VITALS: BP 146/67
--- NOTE | 2020-01-24 00:35 | NUR ---
PRN MORPHINE EFFECTIVE. CALL LIGHT IS WITHIN REACH.
--- NOTE | 2020-01-24 05:36 | NUR ---
PRN MORPHINE GIVEN FOR RIGHT FOOT PAIN. CALL LIGHT IS WITHIN REACH.
--- NOTE | 2020-01-24 06:36 | NUR ---
PRN MORPHINE EFFECTIVE PER PATIENT. CALL LIGHT IS WITHIN REACH.
[2020-01-24 06:50] LABS: BASO % 0.1 % (0.0-1.0); EOS % 0.1 % (1.0-4.0); HEMATOCRIT 31.8 % (42.0-52.0); LYMPH # 0.7 10*3/uL (1.3-4.4); LYMPH % 5.6 % (27.0-41.0); MEAN CELL VOLUME 87.1 fl (80.0-94.0); MEAN CORPUSCULAR HGB 26.6 pg (27.0-31.0); MEAN CORPUSCULAR HGB CONC 30.5 g/dl (33.0-37.0); MEAN PLATELET VOLUME 9.6 fl (9.6-12.3); MONO # 0.7 10*3/uL (0.1-1.0); MONO % 5.6 % (3.0-9.0); NEUT # 11.2 10*3/uL (2.3-7.9); NEUT % 88.1 % (47.0-73.0); PLATELET COUNT AUTOMATED 361 10*3/uL (130-400); RED BLOOD COUNT 3.65 10*6/uL (4.50-5.90); RED CELL DISTRI WIDTH 13.5 % (0-14.5); WHITE BLOOD COUNT 12.7 10*3/uL (4.8-10.8)
--- NOTE | 2020-01-24 07:00 | NUR ---
SPOKE WITH DR. KENNEY IN REGARDS TO PATIENT TRANSFER TO [facility] FOR ANGIOPLASTY. AWAITING DISCHARGE ORDERS.
[2020-01-24 07:04] LABS: BUN 21 mg/dl (7-24); CHLORIDE 104 mmol/L (98-107); CREATININE 0.96 mg/dL (0.70-1.30); POTASSIUM 4.3 mmol/L (3.5-5.1); SODIUM 138 mmol/L (136-145)
[2020-01-24 08:00] VITALS: BP 144/65
--- NOTE | 2020-01-24 08:00 | NUR ---
PHYSICAL THERAPY Cherie received pt s/p RLE transmetatarsal amputation 01/23/20. Per Nursing notes pt is to be transfered today/this AM to [facility] for angioplasty of the RLE will defer therapy at this time Kathy Nassar PT
--- NOTE | 2020-01-24 10:25 | NUR ---
Discharge instructions reviewed with patient/family. Patient receptive and verbalizes understanding. Follow-up care arranged. Written instructions given to patient/family. PATIENT LEFT IN CARE OF [facility] TO GO TO [place]. ENA THORNE
--- NOTE | 2020-01-24 12:07 | NUR ---
Printing Equipment Mechanic in to talk to patient. Patient states lives at HOME with . There are 3 steps in the home. Physician: FAN CANCINO Pharmacy: [facility] Home health services: NONE Patient's level of ADLs: INDEPENDENT Patient has working utilities: YES DME: WHEEL CHAIR AND WALKER IF NEEDED Follow-up physician's appointment after d/c: WILL BE MADE BY HOSPITALIST NURSE DIRECTOR ON DISCHARGE Does patient want to access PORTAL?: NO Discharge plan PT LIVES AT HOME WITH HIS AND IS INDEPENDENT IN HIS ADLS. PT IT BEING TRANSFERRED TO [facility] FOR PROCEDURE WITH DR SNOW TODAY. STATES HE WILL NOT HAVE ANY NEEDS AT HOME. WILL FOLLOW UP WITH PODIATRY. WILL CONTINUE TO FOLLOW. . DEVON JOVEL
[2020-01-24 13:09] LABS: ACID FAST SPEC PROCESSING Tissue Grinding (.)
== END 2020-01-24 10:25 | disposition short-term general hospital (02) | DRG 240 ==
LOC: ED 08:35 → EDHOLD 10:29 → 4E 10:29
PROVIDERS: Emergency Medicine; Internal Medicine; Podiatrist; ADMIT Student in an Organized Health Care Education/Training Program
PROC: 0Y6M0ZC Detachment at Right Foot, Partial 3rd Ray, Open Approach (ICD-10-PCS; principal; 2020-01-23)
PROC: 0Y6M0ZB Detachment at Right Foot, Partial 2nd Ray, Open Approach (ICD-10-PCS; principal; 2020-01-23)
PROC: 0Y6M0Z9 Detachment at Right Foot, Partial 1st Ray, Open Approach (ICD-10-PCS; principal; 2020-01-23)
PROC: 0LSN0ZZ Reposition Right Lower Leg Tendon, Open Approach (ICD-10-PCS; principal; 2020-01-23)
DX: E11.52 Type 2 diabetes mellitus with diabetic peripheral angiopathy with gangrene (principal); E44.0 Moderate protein-calorie malnutrition; I96 Gangrene, not elsewhere classified; I50.32 Chronic diastolic (congestive) heart failure; M86.8X7 Other osteomyelitis, ankle and foot; Z68.1 Body mass index [BMI] 19.9 or less, adult; E11.69 Type 2 diabetes mellitus with other specified complication; I11.0 Hypertensive heart disease with heart failure; I25.5 Ischemic cardiomyopathy; D64.9 Anemia, unspecified; E78.5 Hyperlipidemia, unspecified; G25.81 Restless legs syndrome; E11.65 Type 2 diabetes mellitus with hyperglycemia; E11.42 Type 2 diabetes mellitus with diabetic polyneuropathy; I25.10 Atherosclerotic heart disease of native coronary artery without angina pectoris; Z79.899 Other long term (current) drug therapy; Z96.651 Presence of right artificial knee joint; Z95.2 Presence of prosthetic heart valve; Z95.1 Presence of aortocoronary bypass graft; Z87.891 Personal history of nicotine dependence; Z80.1 Family history of malignant neoplasm of trachea, bronchus and lung; Z79.82 Long term (current) use of aspirin; Z79.4 Long term (current) use of insulin; Z91.19 Patient's noncompliance with other medical treatment and regimen

== ENCOUNTER 2020-04-11 12:43 | Emergency (ER) | payer MEDICARE ==
[~2020-04-11] VITALS: Ht 177.8 cm; Wt 63.5 kg
[~2020-04-11 12:43] MED LIST changes: +CLOPIDOGREL75 MG PO; +POTASSIUM CHLO10 ME5 PO
[2020-04-11 13:19] LABS: BASO % 0.3 % (0.0-1.0); EOS # 0.1 10*3/uL (0.0-0.4); EOS % 0.8 % (1.0-4.0); HEMATOCRIT 29.9 % (42.0-52.0); LYMPH # 0.3 10*3/uL (1.3-4.4); LYMPH % 5.6 % (27.0-41.0); MEAN CELL VOLUME 84.9 fl (80.0-94.0); MEAN CORPUSCULAR HGB 26.7 pg (27.0-31.0); MEAN CORPUSCULAR HGB CONC 31.4 g/dl (33.0-37.0); MEAN PLATELET VOLUME 9.5 fl (9.6-12.3); MONO # 0.5 10*3/uL (0.1-1.0); MONO % 9.1 % (3.0-9.0); NEUT % 83.9 % (47.0-73.0); PLATELET COUNT AUTOMATED 314 10*3/uL (130-400); RED BLOOD COUNT 3.52 10*6/uL (4.50-5.90); RED CELL DISTRI WIDTH 12.8 % (0-14.5); WHITE BLOOD COUNT 5.9 10*3/uL (4.8-10.8)
[2020-04-11 13:31] LABS: ACT PARTIAL THROMBO TIME 30.2 SECONDS (20.0-32.1)
[2020-04-11 13:37] LABS: ALBUMIN 2.9 gm/dl (3.1-4.5); ALKALINE PHOSPHATASE 145 U/L (45-117); BUN 29 mg/dl (7-24); CHLORIDE 96 mmol/L (98-107); CREATININE 1.19 mg/dL (0.70-1.30); POTASSIUM 4.2 mmol/L (3.5-5.1); SGOT/AST 9 IU/L (3-35); SGPT/ALT 15 U/L (12-78); SODIUM 132 mmol/L (136-145); TOTAL PROTEIN 6.9 gm/dL (6.4-8.2)
[2020-04-11 13:55] LABS: TROPONIN I < 0.015 ng/ml (<0.045)
== END 2020-04-11 14:46 | disposition home or self-care (01) ==
LOC: ED 12:43
PROVIDERS: Internal Medicine
DX: R53.83 Other fatigue (principal); Z79.899 Other long term (current) drug therapy; Z79.82 Long term (current) use of aspirin

== ENCOUNTER → 2020-04-18 | Outpatient (CLI) | payer MEDICARE | END | disposition home or self-care (01) | LOC: COVID19 04:46 | PROVIDERS: ATTEND Podiatrist | DX: Z01.818 Encounter for other preprocedural examination (principal); Z20.828 Contact with and (suspected) exposure to other viral communicable diseases ==

== ENCOUNTER → 2020-04-23 | Day surgery (SDC) | payer MEDICARE ==
[~2020-04-23] VITALS: Ht 177.8 cm; Wt 63.5 kg
== END | disposition home or self-care (01) ==
LOC: SDC 04-18 11:00
PROVIDERS: ATTEND Podiatrist
DX: L97.511 Non-pressure chronic ulcer of other part of right foot limited to breakdown of skin (principal); E11.621 Type 2 diabetes mellitus with foot ulcer; L97.514 Non-pressure chronic ulcer of other part of right foot with necrosis of bone; M86.171 Other acute osteomyelitis, right ankle and foot; I25.810 Atherosclerosis of coronary artery bypass graft(s) without angina pectoris; D64.9 Anemia, unspecified; K21.9 Gastro-esophageal reflux disease without esophagitis; I10 Essential (primary) hypertension; Z98.890 Other specified postprocedural states; Z79.899 Other long term (current) drug therapy; Z83.3 Family history of diabetes mellitus; Z82.49 Family history of ischemic heart disease and other diseases of the circulatory system

== ENCOUNTER → 2020-08-08 | Outpatient (CLI) | payer MEDICARE ==
[~2020-08-08] MED LIST changes: +DOXYCYCLINE MO100 MG PO; +LEVOFLOXACIN750 M2 PO; +METOPROLOL TART50 M1 PO; +OZEMPIC0.25 MG/01 SQ; +ROPINIROLE HYDRO3 MG PO; +TRESIBA FL100 UNIT/1 SQ; +ZOSYN 3.373.375 GM/1 IV
== END | disposition home or self-care (01) ==
LOC: COVID19 11:22
PROVIDERS: ATTEND Podiatrist Foot & Ankle Surgery
DX: Z01.812 Encounter for preprocedural laboratory examination (principal); Z20.822 Contact with and (suspected) exposure to COVID-19

== ENCOUNTER → 2020-08-15 | Outpatient (CLI) | payer MEDICARE | END | disposition home or self-care (01) | LOC: MRI 13:59 | PROVIDERS: ATTEND Podiatrist Foot & Ankle Surgery | DX: M86.171 Other acute osteomyelitis, right ankle and foot (principal) ==

== ENCOUNTER 2020-08-19 18:10 | Inpatient (IN) | payer MEDICARE ==
[~2020-08-19] VITALS: Ht 177.8 cm; Wt 63.2 kg
[~2020-08-19 18:10] MED LIST changes: -LEVOFLOXACIN750 M2 PO; -METOPROLOL TART50 M1 PO; -OZEMPIC0.25 MG/01 SQ; -ROPINIROLE HYDRO3 MG PO; -TRESIBA FL100 UNIT/1 SQ; -ZOSYN 3.373.375 GM/1 IV
[2020-08-19 18:32] VITALS: BP 115/52
[2020-08-19 19:30] LABS: BASO % 0.2 % (0.0-1.0); EOS # 0.1 10*3/uL (0.0-0.4); EOS % 0.7 % (1.0-4.0); HEMATOCRIT 31.9 % (42.0-52.0); LYMPH # 0.6 10*3/uL (1.3-4.4); LYMPH % 6.7 % (27.0-41.0); MEAN CELL VOLUME 84.6 fl (80.0-94.0); MEAN CORPUSCULAR HGB CONC 30.7 g/dl (33.0-37.0); MEAN PLATELET VOLUME 9.4 fl (9.6-12.3); MONO # 0.7 10*3/uL (0.1-1.0); MONO % 7.6 % (3.0-9.0); NEUT # 7.6 10*3/uL (2.3-7.9); NEUT % 84.5 % (47.0-73.0); PLATELET COUNT AUTOMATED 352 10*3/uL (130-400); RED BLOOD COUNT 3.77 10*6/uL (4.50-5.90); RED CELL DISTRI WIDTH 14.5 % (0-14.5)
[2020-08-20] VITALS (11 sets, daily range): BP systolic 92–166; BP diastolic 47–85
[2020-08-20] MEDS ORDERED: METOPROLOL TART50 M1 PO (03:23)
[2020-08-20] MEDS ORDERED: ROPINIROLE HYDRO3 MG PO (03:24)
[2020-08-20] MEDS ORDERED: TRESIBA FL100 UNIT/1 SQ (06:24)
[2020-08-20] MEDS ORDERED: OZEMPIC0.25 MG/01 SQ (06:25)
[2020-08-20 08:21] LABS: BASO % 0.5 % (0.0-1.0); EOS # 0.1 10*3/uL (0.0-0.4); EOS % 1.2 % (1.0-4.0); HEMATOCRIT 31.4 % (42.0-52.0); LYMPH # 0.7 10*3/uL (1.3-4.4); LYMPH % 8.6 % (27.0-41.0); MEAN CELL VOLUME 85.3 fl (80.0-94.0); MEAN CORPUSCULAR HGB 26.1 pg (27.0-31.0); MEAN CORPUSCULAR HGB CONC 30.6 g/dl (33.0-37.0); MEAN PLATELET VOLUME 9.7 fl (9.6-12.3); MONO # 0.7 10*3/uL (0.1-1.0); MONO % 8.8 % (3.0-9.0); NEUT # 6.1 10*3/uL (2.3-7.9); NEUT % 80.5 % (47.0-73.0); PLATELET COUNT AUTOMATED 370 10*3/uL (130-400); RED BLOOD COUNT 3.68 10*6/uL (4.50-5.90); RED CELL DISTRI WIDTH 14.5 % (0-14.5); WHITE BLOOD COUNT 7.5 10*3/uL (4.8-10.8)
[2020-08-20 08:33] LABS: ALBUMIN 2.9 gm/dl (3.1-4.5); ALKALINE PHOSPHATASE 100 U/L (45-117); BUN 25 mg/dl (7-24); CHLORIDE 106 mmol/L (98-107); CREATININE 0.86 mg/dL (0.70-1.30); POTASSIUM 4.7 mmol/L (3.5-5.1); SGOT/AST 13 IU/L (3-35); SGPT/ALT 15 U/L (12-78); SODIUM 139 mmol/L (136-145)
[2020-08-21] VITALS: BP 137/44
[2020-08-21 06:32] LABS: BASO % 0.5 % (0.0-1.0); EOS # 0.2 10*3/uL (0.0-0.4); EOS % 2.6 % (1.0-4.0); HEMATOCRIT 32.7 % (42.0-52.0); LYMPH # 0.6 10*3/uL (1.3-4.4); LYMPH % 8.5 % (27.0-41.0); MEAN CELL VOLUME 87.7 fl (80.0-94.0); MEAN CORPUSCULAR HGB CONC 29.7 g/dl (33.0-37.0); MEAN PLATELET VOLUME 9.6 fl (9.6-12.3); MONO # 0.6 10*3/uL (0.1-1.0); MONO % 7.5 % (3.0-9.0); NEUT # 6.1 10*3/uL (2.3-7.9); NEUT % 80.8 % (47.0-73.0); PLATELET COUNT AUTOMATED 356 10*3/uL (130-400); RED BLOOD COUNT 3.73 10*6/uL (4.50-5.90); RED CELL DISTRI WIDTH 14.5 % (0-14.5); WHITE BLOOD COUNT 7.6 10*3/uL (4.8-10.8)
[2020-08-21 06:51] LABS: BUN 19 mg/dl (7-24); CHLORIDE 108 mmol/L (98-107); CREATININE 0.96 mg/dL (0.70-1.30); POTASSIUM 4.2 mmol/L (3.5-5.1); SODIUM 139 mmol/L (136-145)
[2020-08-21 08:00] VITALS: BP 143/55
[2020-08-21 12:00] VITALS: BP 125/53
[2020-08-21 16:00] VITALS: BP 128/56; BP 135/59
[2020-08-21 20:00] VITALS: BP 129/70
[2020-08-22] VITALS: BP 108/43
[2020-08-22 06:31] LABS: BASO % 0.6 % (0.0-1.0); EOS # 0.2 10*3/uL (0.0-0.4); EOS % 2.9 % (1.0-4.0); HEMATOCRIT 29.4 % (42.0-52.0); LYMPH # 0.7 10*3/uL (1.3-4.4); LYMPH % 10.3 % (27.0-41.0); MEAN CELL VOLUME 86.2 fl (80.0-94.0); MEAN CORPUSCULAR HGB 26.4 pg (27.0-31.0); MEAN CORPUSCULAR HGB CONC 30.6 g/dl (33.0-37.0); MEAN PLATELET VOLUME 10.1 fl (9.6-12.3); MONO # 0.6 10*3/uL (0.1-1.0); MONO % 8.4 % (3.0-9.0); NEUT # 5.4 10*3/uL (2.3-7.9); NEUT % 77.5 % (47.0-73.0); PLATELET COUNT AUTOMATED 312 10*3/uL (130-400); RED BLOOD COUNT 3.41 10*6/uL (4.50-5.90); RED CELL DISTRI WIDTH 14.5 % (0-14.5)
[2020-08-22 06:35] LABS: BUN 27 mg/dl (7-24); CHLORIDE 109 mmol/L (98-107); CREATININE 1.12 mg/dL (0.70-1.30); POTASSIUM 4.9 mmol/L (3.5-5.1); SODIUM 141 mmol/L (136-145)
[2020-08-22 08:00] VITALS: BP 136/52
[2020-08-22 12:00] VITALS: BP 132/56
[2020-08-22 12:07] LABS: ACID FAST SPEC PROCESSING Tissue Grinding (.)
[2020-08-22 20:00] VITALS: BP 134/59
[2020-08-23] VITALS: BP 119/59
[2020-08-23 07:17] LABS: BASO % 0.5 % (0.0-1.0); EOS # 0.2 10*3/uL (0.0-0.4); EOS % 2.9 % (1.0-4.0); HEMATOCRIT 26.9 % (42.0-52.0); LYMPH # 0.6 10*3/uL (1.3-4.4); LYMPH % 8.3 % (27.0-41.0); MEAN CELL VOLUME 84.6 fl (80.0-94.0); MEAN CORPUSCULAR HGB 26.1 pg (27.0-31.0); MEAN CORPUSCULAR HGB CONC 30.9 g/dl (33.0-37.0); MEAN PLATELET VOLUME 9.9 fl (9.6-12.3); MONO # 0.6 10*3/uL (0.1-1.0); MONO % 7.5 % (3.0-9.0); NEUT # 5.9 10*3/uL (2.3-7.9); NEUT % 80.5 % (47.0-73.0); PLATELET COUNT AUTOMATED 308 10*3/uL (130-400); RED BLOOD COUNT 3.18 10*6/uL (4.50-5.90); RED CELL DISTRI WIDTH 14.4 % (0-14.5); WHITE BLOOD COUNT 7.3 10*3/uL (4.8-10.8)
[2020-08-23 07:36] LABS: BUN 32 mg/dl (7-24); CHLORIDE 105 mmol/L (98-107); CREATININE 1.18 mg/dL (0.70-1.30); SODIUM 137 mmol/L (136-145)
[2020-08-23 07:37] LABS: POTASSIUM 3.7 mmol/L (3.5-5.1)
[2020-08-23 08:00] VITALS: BP 136/56
[2020-08-23] MEDS ORDERED: ZOSYN 3.373.375 GM/1 IV (10:59)
[2020-08-23 12:00] VITALS: BP 129/68
[2020-10-03 13:06] LABS: ACID FAST CULTURE Negative (.)
== END 2020-08-23 13:45 | disposition home health service (06) | DRG 629 ==
LOC: ED 18:10 → 5E 19:33 → EDHOLD 19:33 → 5E 23:43
PROVIDERS: Internal Medicine; Podiatrist; Podiatrist Foot & Ankle Surgery; ADMIT Family Medicine; ATTEND Family Medicine
PROC: 0J9Q0ZZ Drainage of Right Foot Subcutaneous Tissue and Fascia, Open Approach (ICD-10-PCS; principal; 2020-08-20)
PROC: 0QBN0ZZ Excision of Right Metatarsal, Open Approach (ICD-10-PCS; 2020-08-20)
PROC: 02HV33Z Insertion of Infusion Device into Superior Vena Cava, Percutaneous Approach (ICD-10-PCS; 2020-08-22)
DX: E11.69 Type 2 diabetes mellitus with other specified complication (principal); M86.171 Other acute osteomyelitis, right ankle and foot; I50.32 Chronic diastolic (congestive) heart failure; E44.0 Moderate protein-calorie malnutrition; I13.0 Hypertensive heart and chronic kidney disease with heart failure and stage 1 through stage 4 chronic kidney disease, or unspecified chronic kidney disease; M81.0 Age-related osteoporosis without current pathological fracture; I25.5 Ischemic cardiomyopathy; I25.10 Atherosclerotic heart disease of native coronary artery without angina pectoris; I70.8 Atherosclerosis of other arteries; E11.22 Type 2 diabetes mellitus with diabetic chronic kidney disease; D64.9 Anemia, unspecified; E78.5 Hyperlipidemia, unspecified; E11.51 Type 2 diabetes mellitus with diabetic peripheral angiopathy without gangrene; E11.59 Type 2 diabetes mellitus with other circulatory complications; N18.31 Chronic kidney disease, stage 3a; E11.40 Type 2 diabetes mellitus with diabetic neuropathy, unspecified; Z20.822 Contact with and (suspected) exposure to COVID-19; G25.81 Restless legs syndrome; Z96.651 Presence of right artificial knee joint; Z95.1 Presence of aortocoronary bypass graft; Z79.4 Long term (current) use of insulin; Z95.2 Presence of prosthetic heart valve; Z87.891 Personal history of nicotine dependence; Z80.1 Family history of malignant neoplasm of trachea, bronchus and lung; Z83.6 Family history of other diseases of the respiratory system; T81.89XD Other complications of procedures, not elsewhere classified, subsequent encounter; Z68.20 Body mass index [BMI] 20.0-20.9, adult

== ENCOUNTER 2020-09-18 13:33 | Emergency (ER) | payer MEDICARE ==
[~2020-09-18] VITALS: Ht 177.8 cm; Wt 61.2 kg
[~2020-09-18 13:33] MED LIST changes: +METOPROLOL TART50 M1 PO; +OZEMPIC0.25 MG/01 SQ; +ROPINIROLE HYDRO3 MG PO; +TRESIBA FL100 UNIT/1 SQ; +ZOSYN 3.373.375 GM/1 IV
[2020-09-18 14:11] LABS: BASO % 0.4 % (0.0-1.0); EOS # 0.1 10*3/uL (0.0-0.4); EOS % 2.7 % (1.0-4.0); HEMATOCRIT 31.1 % (42.0-52.0); LYMPH # 0.4 10*3/uL (1.3-4.4); LYMPH % 8.2 % (27.0-41.0); MEAN CELL VOLUME 88.1 fl (80.0-94.0); MEAN CORPUSCULAR HGB 26.3 pg (27.0-31.0); MEAN CORPUSCULAR HGB CONC 29.9 g/dl (33.0-37.0); MEAN PLATELET VOLUME 9.5 fl (9.6-12.3); MONO # 0.4 10*3/uL (0.1-1.0); MONO % 7.5 % (3.0-9.0); NEUT # 3.9 10*3/uL (2.3-7.9); PLATELET COUNT AUTOMATED 251 10*3/uL (130-400); RED BLOOD COUNT 3.53 10*6/uL (4.50-5.90); RED CELL DISTRI WIDTH 17.4 % (0-14.5); WHITE BLOOD COUNT 4.8 10*3/uL (4.8-10.8)
[2020-09-18 14:21] LABS: ACT PARTIAL THROMBO TIME 26.9 SECONDS (20.0-32.1)
[2020-09-18 14:38] LABS: ALBUMIN 3.1 gm/dl (3.1-4.5); ALKALINE PHOSPHATASE 96 U/L (45-117); BUN 25 mg/dl (7-24); CHLORIDE 110 mmol/L (98-107); CREATININE 1.22 mg/dL (0.70-1.30); POTASSIUM 3.7 mmol/L (3.5-5.1); SGOT/AST 19 IU/L (3-35); SGPT/ALT 18 U/L (12-78); SODIUM 146 mmol/L (136-145); TOTAL PROTEIN 7.3 gm/dL (6.4-8.2); TROPONIN I < 0.015 ng/ml (<0.045)
[2020-09-18 15:34] LABS: BILIRUBIN Negative (Negative); BLOOD Trace-Intact (Negative); CLARITY Clear (Clear); COLOR Yellow (Yellow); GLUCOSE Negative (Negative); KETONE Trace (Negative); LEUKO ESTERASE Negative (Negative); NITRITE Negative (Negative); PH 5.5 (4.5-8.0); SPECIFIC GRAVITY >= 1.030 (1.001-1.030)
[2020-09-18 15:52] LABS: BACTERIA 1+; HYALINE CAST 0-2; RBC 21-30 rbc/hpf (0-2)
[2020-09-18] MEDS ORDERED: LEVOFLOXACIN750 M2 PO (16:05)
== END 2020-09-18 16:21 | disposition home or self-care (01) ==
LOC: ED 13:33
PROVIDERS: Emergency Medicine; Nurse Practitioner
DX: N39.0 Urinary tract infection, site not specified (principal); J18.9 Pneumonia, unspecified organism; J90 Pleural effusion, not elsewhere classified; E11.9 Type 2 diabetes mellitus without complications; I10 Essential (primary) hypertension; K21.9 Gastro-esophageal reflux disease without esophagitis; I25.10 Atherosclerotic heart disease of native coronary artery without angina pectoris; E78.00 Pure hypercholesterolemia, unspecified; J44.9 Chronic obstructive pulmonary disease, unspecified; Z79.899 Other long term (current) drug therapy; Z79.4 Long term (current) use of insulin; Z96.651 Presence of right artificial knee joint; Z95.2 Presence of prosthetic heart valve; Z98.890 Other specified postprocedural states; Z95.1 Presence of aortocoronary bypass graft; Z87.891 Personal history of nicotine dependence

== ENCOUNTER → 2020-10-03 | Outpatient (CLI) | payer MEDICARE ==
[~2020-10-03] MED LIST changes: +LEVOFLOXACIN750 M2 PO
== END | disposition home or self-care (01) ==
LOC: RAD 13:08
PROVIDERS: ATTEND Physician Assistant
DX: J90 Pleural effusion, not elsewhere classified (principal); J43.9 Emphysema, unspecified; R06.4 Hyperventilation; Z98.890 Other specified postprocedural states

== ENCOUNTER → 2020-10-30 | Outpatient (CLI) | payer MEDICARE | END | disposition home or self-care (01) | LOC: CT 09:48 | PROVIDERS: ATTEND Ophthalmology | DX: I67.82 Cerebral ischemia (principal); H53.47 Heteronymous bilateral field defects ==

== ENCOUNTER → 2020-12-25 | Outpatient (CLI) | payer MEDICARE ==
[2020-12-25 08:11] LABS: BASO % 0.7 % (0.0-1.0); EOS # 0.1 10*3/uL (0.0-0.4); EOS % 1.9 % (1.0-4.0); HEMATOCRIT 31.8 % (42.0-52.0); LYMPH # 0.4 10*3/uL (1.3-4.4); MEAN CELL VOLUME 81.3 fl (80.0-94.0); MEAN CORPUSCULAR HGB 24.3 pg (27.0-31.0); MEAN CORPUSCULAR HGB CONC 29.9 g/dl (33.0-37.0); MEAN PLATELET VOLUME 9.9 fl (9.6-12.3); MONO # 0.5 10*3/uL (0.1-1.0); MONO % 8.7 % (3.0-9.0); NEUT # 4.3 10*3/uL (2.3-7.9); NEUT % 80.5 % (47.0-73.0); PLATELET COUNT AUTOMATED 295 10*3/uL (130-400); RED BLOOD COUNT 3.91 10*6/uL (4.50-5.90); RED CELL DISTRI WIDTH 15.9 % (0-14.5); WHITE BLOOD COUNT 5.4 10*3/uL (4.8-10.8)
[2020-12-25 08:45] LABS: ALBUMIN 2.6 gm/dl (3.1-4.5); BUN 24 mg/dl (7-24); CHLORIDE 101 mmol/L (98-107); POTASSIUM 4.5 mmol/L (3.5-5.1); SGOT/AST 23 IU/L (3-35); SGPT/ALT 24 U/L (12-78); SODIUM 134 mmol/L (136-145); TOTAL PROTEIN 6.6 gm/dL (6.4-8.2)
[2020-12-25 08:46] LABS: ALKALINE PHOSPHATASE 172 U/L (45-117)
== END | disposition home or self-care (01) ==
LOC: LAB 07:32
PROVIDERS: ATTEND Podiatrist Foot & Ankle Surgery
DX: I10 Essential (primary) hypertension (principal); L08.9 Local infection of the skin and subcutaneous tissue, unspecified

== ENCOUNTER → 2021-01-02 | Outpatient (CLI) | payer MEDICARE ==
[~2021-01-02] MED LIST changes: +ASPIRIN CHEWABL81 MG PO; +BYDUREON B2 MG/0.85 SQ; +EXELON1 EAC1 TD; +FAMOTIDINE40 MG PO; +GABAPENTIN600 MG PO; +HYDROCODON-ACE1 EACH PO; +JARDIANCE25 MG PO; +MEMANTINE HCL5 MG PO; +MIRALAX POWDER17 G1 PO; +PROTONIX TR40 M1 PO; +TRESIBA100 UNIT/1 SQ
== END | disposition home or self-care (01) ==
LOC: COVID19 12:07
PROVIDERS: ATTEND Podiatrist
DX: Z01.818 Encounter for other preprocedural examination (principal); J98.11 Atelectasis; J90 Pleural effusion, not elsewhere classified; M19.90 Unspecified osteoarthritis, unspecified site; M85.80 Other specified disorders of bone density and structure, unspecified site; Z20.822 Contact with and (suspected) exposure to COVID-19

== ENCOUNTER 2021-01-07 02:07 | Inpatient (IN) | payer MEDICARE ==
[2020-12-29 13:20] VITALS: BP 132/55
[2021-01-02 13:35] VITALS: BP 152/75
[2021-01-07] VITALS (10 sets, daily range): BP systolic 108–149; BP diastolic 55–71
[~2021-01-07] VITALS: Ht 177.8 cm; Wt 73.1 kg
[~2021-01-07 02:07] MED LIST changes: -ASPIRIN CHEWABL81 MG PO; -BYDUREON B2 MG/0.85 SQ; -EXELON1 EAC1 TD; -FAMOTIDINE40 MG PO; -GABAPENTIN600 MG PO; -HYDROCODON-ACE1 EACH PO; -JARDIANCE25 MG PO; -MEMANTINE HCL5 MG PO; -MIRALAX POWDER17 G1 PO; -PROTONIX TR40 M1 PO; -TRESIBA100 UNIT/1 SQ
[2021-01-07] MEDS ORDERED: ASPIRIN CHEWABL81 MG PO (14:04)
[2021-01-07] MEDS ORDERED: BYDUREON B2 MG/0.85 SQ (14:06)
[2021-01-07] MEDS ORDERED: GABAPENTIN600 MG PO (14:14)
[2021-01-07] MEDS ORDERED: JARDIANCE25 MG PO (14:15)
[2021-01-07] MEDS ORDERED: HYDROXYZINE PAM25 M1 PO (14:17)
[2021-01-07] MEDS ORDERED: MEMANTINE HCL5 MG PO (14:17)
[2021-01-07] MEDS ORDERED: REMERON15 M2 PO (14:18)
[2021-01-07] MEDS ORDERED: TRESIBA100 UNIT/1 SQ (14:19)
[2021-01-07] MEDS ORDERED: NOVOLOG FL100 UNIT/2 SC (14:20)
[2021-01-07] MEDS ORDERED: MIRALAX POWDER17 G1 PO (14:21)
[2021-01-07] MEDS ORDERED: PROTONIX TR40 M1 PO (14:21)
[2021-01-07] MEDS ORDERED: FAMOTIDINE40 MG PO (14:22)
[2021-01-07] MEDS ORDERED: EXELON1 EAC1 TD (14:23)
[2021-01-07] MEDS ORDERED: ARGINAID POWDE1 EACH PO (14:25)
[2021-01-07] MEDS ORDERED: OLANZAPINE5 MG PO (14:26)
[2021-01-07] MEDS ORDERED: HYDROCODON-ACE1 EACH PO (14:28)
[2021-01-07 16:22] LABS: BASO % 0.5 % (0.0-1.0); EOS # 0.2 10*3/uL (0.0-0.4); EOS % 2.4 % (1.0-4.0); HEMATOCRIT 32.9 % (42.0-52.0); LYMPH # 0.9 10*3/uL (1.3-4.4); LYMPH % 12.1 % (27.0-41.0); MEAN CELL VOLUME 82.7 fl (80.0-94.0); MEAN CORPUSCULAR HGB 24.4 pg (27.0-31.0); MEAN CORPUSCULAR HGB CONC 29.5 g/dl (33.0-37.0); MEAN PLATELET VOLUME 10.2 fl (9.6-12.3); MONO # 0.4 10*3/uL (0.1-1.0); MONO % 5.5 % (3.0-9.0); NEUT % 79.2 % (47.0-73.0); PLATELET COUNT AUTOMATED 340 10*3/uL (130-400); RED BLOOD COUNT 3.98 10*6/uL (4.50-5.90); RED CELL DISTRI WIDTH 16.8 % (0-14.5); WHITE BLOOD COUNT 7.6 10*3/uL (4.8-10.8)
[2021-01-07 16:43] LABS: ALBUMIN 2.7 gm/dl (3.1-4.5); ALKALINE PHOSPHATASE 142 U/L (45-117); BUN 20 mg/dl (7-24); CHLORIDE 110 mmol/L (98-107); CREATININE 0.88 mg/dL (0.70-1.30); POTASSIUM 4.4 mmol/L (3.5-5.1); SGOT/AST 27 IU/L (3-35); SGPT/ALT 22 U/L (12-78); SODIUM 139 mmol/L (136-145); TOTAL PROTEIN 6.6 gm/dL (6.4-8.2)
[2021-01-08] VITALS: BP 123/87
[2021-01-08 06:42] LABS: BASO % 0.4 % (0.0-1.0); EOS # 0.1 10*3/uL (0.0-0.4); EOS % 0.8 % (1.0-4.0); HEMATOCRIT 34.3 % (42.0-52.0); LYMPH # 0.6 10*3/uL (1.3-4.4); LYMPH % 5.6 % (27.0-41.0); MEAN CELL VOLUME 83.1 fl (80.0-94.0); MEAN CORPUSCULAR HGB 24.5 pg (27.0-31.0); MEAN CORPUSCULAR HGB CONC 29.4 g/dl (33.0-37.0); MEAN PLATELET VOLUME 10.3 fl (9.6-12.3); MONO # 0.6 10*3/uL (0.1-1.0); MONO % 5.5 % (3.0-9.0); NEUT # 9.5 10*3/uL (2.3-7.9); NEUT % 87.5 % (47.0-73.0); PLATELET COUNT AUTOMATED 319 10*3/uL (130-400); RED BLOOD COUNT 4.13 10*6/uL (4.50-5.90); RED CELL DISTRI WIDTH 17.1 % (0-14.5); WHITE BLOOD COUNT 10.8 10*3/uL (4.8-10.8)
[2021-01-08 06:53] LABS: ALBUMIN 2.6 gm/dl (3.1-4.5); BUN 18 mg/dl (7-24); CHLORIDE 110 mmol/L (98-107); CREATININE 0.93 mg/dL (0.70-1.30); FREE T4 1.18 ng/dl (0.76-1.46); POTASSIUM 4.9 mmol/L (3.5-5.1); SGOT/AST 20 IU/L (3-35); SGPT/ALT 16 U/L (12-78); SODIUM 140 mmol/L (136-145)
[2021-01-08 06:58] LABS: ALKALINE PHOSPHATASE 122 U/L (45-117); TOTAL PROTEIN 6.3 gm/dL (6.4-8.2)
[2021-01-08 08:00] VITALS: BP 110/56
[2021-01-08 11:07] LABS: ACID FAST SPEC PROCESSING Tissue Grinding (.)
[2021-01-08 11:07] LABS: ACID FAST SPEC PROCESSING Tissue Grinding (.)
[2021-01-08 11:07] LABS: ACID FAST SPEC PROCESSING Tissue Grinding (.)
[2021-01-08 12:00] VITALS: BP 142/70
[2021-01-08 16:00] VITALS: BP 101/52
[2021-01-08 20:00] VITALS: BP 126/59
[2021-01-09] VITALS: BP 124/63
[2021-01-09 08:00] VITALS: BP 146/74
[2021-01-09 12:00] VITALS: BP 110/75
[2021-01-09 15:56] LABS: BASO % 0.5 % (0.0-1.0); EOS # 0.1 10*3/uL (0.0-0.4); EOS % 1.4 % (1.0-4.0); HEMATOCRIT 30.6 % (42.0-52.0); LYMPH # 0.6 10*3/uL (1.3-4.4); MEAN CELL VOLUME 82.5 fl (80.0-94.0); MEAN CORPUSCULAR HGB 24.3 pg (27.0-31.0); MEAN CORPUSCULAR HGB CONC 29.4 g/dl (33.0-37.0); MEAN PLATELET VOLUME 9.8 fl (9.6-12.3); MONO # 0.5 10*3/uL (0.1-1.0); MONO % 6.6 % (3.0-9.0); NEUT # 6.4 10*3/uL (2.3-7.9); NEUT % 83.1 % (47.0-73.0); PLATELET COUNT AUTOMATED 251 10*3/uL (130-400); RED BLOOD COUNT 3.71 10*6/uL (4.50-5.90); RED CELL DISTRI WIDTH 17.2 % (0-14.5); WHITE BLOOD COUNT 7.7 10*3/uL (4.8-10.8)
[2021-01-09 16:00] VITALS: BP 102/70
[2021-01-09 20:00] VITALS: BP 149/64
[2021-01-10] VITALS: BP 168/79
[2021-01-10 08:00] VITALS: BP 158/74
[2021-01-10 12:00] VITALS: BP 136/64
[2021-01-10 16:00] VITALS: BP 137/74
[2021-01-10 20:00] VITALS: BP 156/80
[2021-01-11] VITALS: BP 132/64
[2021-01-11 06:17] LABS: BASO % 0.2 % (0.0-1.0); EOS # 0.2 10*3/uL (0.0-0.4); EOS % 2.9 % (1.0-4.0); HEMATOCRIT 29.8 % (42.0-52.0); LYMPH # 0.6 10*3/uL (1.3-4.4); LYMPH % 9.2 % (27.0-41.0); MEAN CELL VOLUME 82.5 fl (80.0-94.0); MEAN CORPUSCULAR HGB 24.4 pg (27.0-31.0); MEAN CORPUSCULAR HGB CONC 29.5 g/dl (33.0-37.0); MEAN PLATELET VOLUME 10.6 fl (9.6-12.3); MONO # 0.4 10*3/uL (0.1-1.0); MONO % 7.1 % (3.0-9.0); NEUT % 80.3 % (47.0-73.0); PLATELET COUNT AUTOMATED 217 10*3/uL (130-400); RED BLOOD COUNT 3.61 10*6/uL (4.50-5.90); RED CELL DISTRI WIDTH 17.1 % (0-14.5); WHITE BLOOD COUNT 6.2 10*3/uL (4.8-10.8)
[2021-01-11 06:53] LABS: CHLORIDE 114 mmol/L (98-107); POTASSIUM 4.7 mmol/L (3.5-5.1); SODIUM 142 mmol/L (136-145)
[2021-01-11 07:05] LABS: ALBUMIN 2.4 gm/dl (3.1-4.5); ALKALINE PHOSPHATASE 176 U/L (45-117); BUN 30 mg/dl (7-24); CREATININE 0.98 mg/dL (0.70-1.30); SGOT/AST 133 IU/L (3-35); SGPT/ALT 66 U/L (12-78)
[2021-01-11 08:00] VITALS: BP 154/74
[2021-01-11 12:00] VITALS: BP 144/58
[2021-01-11 16:00] VITALS: BP 143/66
[2021-01-11 20:00] VITALS: BP 169/73
[2021-01-12] VITALS: BP 150/70
[2021-01-12 07:29] LABS: BASO % 0.2 % (0.0-1.0); EOS # 0.1 10*3/uL (0.0-0.4); EOS % 1.6 % (1.0-4.0); LYMPH # 0.3 10*3/uL (1.3-4.4); MEAN CELL VOLUME 81.5 fl (80.0-94.0); MEAN CORPUSCULAR HGB 24.2 pg (27.0-31.0); MEAN CORPUSCULAR HGB CONC 29.7 g/dl (33.0-37.0); MEAN PLATELET VOLUME 10.3 fl (9.6-12.3); MONO # 0.4 10*3/uL (0.1-1.0); MONO % 5.7 % (3.0-9.0); NEUT # 5.6 10*3/uL (2.3-7.9); NEUT % 88.2 % (47.0-73.0); PLATELET COUNT AUTOMATED 229 10*3/uL (130-400); RED BLOOD COUNT 3.68 10*6/uL (4.50-5.90); RED CELL DISTRI WIDTH 16.9 % (0-14.5); WHITE BLOOD COUNT 6.3 10*3/uL (4.8-10.8)
[2021-01-12 07:53] LABS: ALBUMIN 2.4 gm/dl (3.1-4.5); ALKALINE PHOSPHATASE 175 U/L (45-117); BUN 28 mg/dl (7-24); CHLORIDE 111 mmol/L (98-107); CREATININE 1.09 mg/dL (0.70-1.30); POTASSIUM 4.6 mmol/L (3.5-5.1); SGOT/AST 84 IU/L (3-35); SGPT/ALT 65 U/L (12-78); SODIUM 142 mmol/L (136-145); TOTAL PROTEIN 5.9 gm/dL (6.4-8.2)
[2021-01-12 08:00] VITALS: BP 144/69
[2021-01-12 12:00] VITALS: BP 125/60
[2021-01-12 16:00] VITALS: BP 130/67
[2021-01-12 20:00] VITALS: BP 134/87
[2021-01-13] VITALS: BP 125/61
[2021-01-13 05:06] LABS: HEPATITIS B SURFACE AB Non Reactive (.)
[2021-01-13 06:17] LABS: ALBUMIN 2.2 gm/dl (3.1-4.5); BUN 25 mg/dl (7-24); CHLORIDE 113 mmol/L (98-107); CREATININE 0.85 mg/dL (0.70-1.30); SGOT/AST 73 IU/L (3-35); SGPT/ALT 58 U/L (12-78); SODIUM 140 mmol/L (136-145)
[2021-01-13 06:18] LABS: ALKALINE PHOSPHATASE 152 U/L (45-117); BASO % 0.2 % (0.0-1.0); EOS # 0.2 10*3/uL (0.0-0.4); EOS % 3.7 % (1.0-4.0); HEMATOCRIT 26.1 % (42.0-52.0); LYMPH # 0.4 10*3/uL (1.3-4.4); LYMPH % 7.6 % (27.0-41.0); MEAN CELL VOLUME 83.4 fl (80.0-94.0); MEAN CORPUSCULAR HGB 24.6 pg (27.0-31.0); MEAN CORPUSCULAR HGB CONC 29.5 g/dl (33.0-37.0); MEAN PLATELET VOLUME 10.4 fl (9.6-12.3); MONO # 0.4 10*3/uL (0.1-1.0); MONO % 8.1 % (3.0-9.0); NEUT # 3.9 10*3/uL (2.3-7.9); NEUT % 80.2 % (47.0-73.0); PLATELET COUNT AUTOMATED 206 10*3/uL (130-400); RED BLOOD COUNT 3.13 10*6/uL (4.50-5.90); RED CELL DISTRI WIDTH 17.2 % (0-14.5); TOTAL PROTEIN 5.5 gm/dL (6.4-8.2); WHITE BLOOD COUNT 4.8 10*3/uL (4.8-10.8)
[2021-01-13 08:00] VITALS: BP 138/98
[2021-01-13 12:00] VITALS: BP 138/66
[2021-01-13] MEDS ORDERED: INVANZ1 GM/50 ML IV (12:27)
[2021-01-13] MEDS ORDERED: ZYVOX600 MG PO (12:27)
[2021-01-13 14:54] VITALS: BP 133/78
[2021-01-13 16:00] VITALS: BP 148/71
[2021-01-13 20:00] VITALS: BP 142/56
[2021-01-14] VITALS: BP 150/75
[2021-01-14 06:45] LABS: BASO % 0.2 % (0.0-1.0); EOS # 0.2 10*3/uL (0.0-0.4); EOS % 4.1 % (1.0-4.0); HEMATOCRIT 28.5 % (42.0-52.0); LYMPH # 0.8 10*3/uL (1.3-4.4); LYMPH % 13.2 % (27.0-41.0); MEAN CELL VOLUME 83.6 fl (80.0-94.0); MEAN CORPUSCULAR HGB 24.6 pg (27.0-31.0); MEAN CORPUSCULAR HGB CONC 29.5 g/dl (33.0-37.0); MEAN PLATELET VOLUME 10.3 fl (9.6-12.3); MONO # 0.6 10*3/uL (0.1-1.0); MONO % 9.6 % (3.0-9.0); NEUT # 4.2 10*3/uL (2.3-7.9); NEUT % 72.6 % (47.0-73.0); PLATELET COUNT AUTOMATED 236 10*3/uL (130-400); RED BLOOD COUNT 3.41 10*6/uL (4.50-5.90); RED CELL DISTRI WIDTH 17.4 % (0-14.5); WHITE BLOOD COUNT 5.8 10*3/uL (4.8-10.8)
[2021-01-14 07:00] LABS: ALBUMIN 2.3 gm/dl (3.1-4.5); CHLORIDE 114 mmol/L (98-107); POTASSIUM 4.5 mmol/L (3.5-5.1); SGPT/ALT 72 U/L (12-78); SODIUM 146 mmol/L (136-145)
[2021-01-14 07:05] LABS: ALKALINE PHOSPHATASE 152 U/L (45-117); BUN 19 mg/dl (7-24); CREATININE 0.73 mg/dL (0.70-1.30); SGOT/AST 107 IU/L (3-35); TOTAL PROTEIN 5.7 gm/dL (6.4-8.2)
[2021-01-14 08:00] VITALS: BP 154/80
[2021-01-14] MEDS ORDERED: XARELTO10 MG PO ×2 (10:12→13:29)
[2021-01-14] MEDS ORDERED: ZOSYN 3.373.375 GM/1 IV (11:14)
[2021-01-14 12:00] VITALS: BP 180/50
[2021-01-14 16:00] VITALS: BP 148/72
[2021-01-14 20:00] VITALS: BP 155/65
[2021-01-15 00:09] VITALS: BP 149/74
[2021-01-15 07:45] LABS: BASO % 0.5 % (0.0-1.0); EOS # 0.2 10*3/uL (0.0-0.4); EOS % 3.7 % (1.0-4.0); LYMPH # 0.4 10*3/uL (1.3-4.4); LYMPH % 6.4 % (27.0-41.0); MEAN CELL VOLUME 83.3 fl (80.0-94.0); MEAN CORPUSCULAR HGB 24.4 pg (27.0-31.0); MEAN CORPUSCULAR HGB CONC 29.3 g/dl (33.0-37.0); MEAN PLATELET VOLUME 9.9 fl (9.6-12.3); MONO # 0.4 10*3/uL (0.1-1.0); MONO % 6.9 % (3.0-9.0); NEUT # 5.1 10*3/uL (2.3-7.9); PLATELET COUNT AUTOMATED 224 10*3/uL (130-400); RED BLOOD COUNT 3.36 10*6/uL (4.50-5.90); RED CELL DISTRI WIDTH 17.9 % (0-14.5); WHITE BLOOD COUNT 6.3 10*3/uL (4.8-10.8)
[2021-01-15 07:57] LABS: ALBUMIN 2.4 gm/dl (3.1-4.5); ALKALINE PHOSPHATASE 149 U/L (45-117); BUN 18 mg/dl (7-24); CHLORIDE 113 mmol/L (98-107); CREATININE 0.79 mg/dL (0.70-1.30); POTASSIUM 4.4 mmol/L (3.5-5.1); SGOT/AST 101 IU/L (3-35); SGPT/ALT 80 U/L (12-78); SODIUM 142 mmol/L (136-145); TOTAL PROTEIN 5.9 gm/dL (6.4-8.2)
[2021-01-15 08:00] VITALS: BP 176/90
[2021-01-15 08:32] VITALS: BP 169/99
[2021-01-15] MEDS ORDERED: NAMENDA-5 PO ×2 (09:42)
[2021-01-15] MEDS ORDERED: OLANZAPINE5 MG PO ×2 (09:42)
[2021-01-15] MEDS ORDERED: MIRTAZAPINE15 M2 PO ×2 (09:42)
[2021-02-21 16:07] LABS: ACID FAST CULTURE Negative (.)
[2021-02-21 16:07] LABS: ACID FAST CULTURE Negative (.)
[2021-02-21 16:07] LABS: ACID FAST CULTURE Negative (.)
== END 2021-01-15 12:45 | disposition home health service (06) | DRG 628 ==
LOC: SDC 02:07 → 4E 13:39
PROVIDERS: Internal Medicine; Podiatrist; Social Worker Clinical; Student in an Organized Health Care Education/Training Program; ADMIT Internal Medicine; ATTEND Internal Medicine
PROC: 0LSN0ZZ Reposition Right Lower Leg Tendon, Open Approach (ICD-10-PCS; principal; 2021-01-07)
PROC: 0QBL0ZZ Excision of Right Tarsal, Open Approach (ICD-10-PCS; 2021-01-07)
PROC: 0MQQ0ZZ Repair Right Ankle Bursa and Ligament, Open Approach (ICD-10-PCS; 2021-01-07)
DX: E11.69 Type 2 diabetes mellitus with other specified complication (principal); E43 Unspecified severe protein-calorie malnutrition; M86.171 Other acute osteomyelitis, right ankle and foot; I13.0 Hypertensive heart and chronic kidney disease with heart failure and stage 1 through stage 4 chronic kidney disease, or unspecified chronic kidney disease; J96.10 Chronic respiratory failure, unspecified whether with hypoxia or hypercapnia; G89.18 Other acute postprocedural pain; E11.22 Type 2 diabetes mellitus with diabetic chronic kidney disease; N18.30 Chronic kidney disease, stage 3 unspecified; I50.9 Heart failure, unspecified; M25.371 Other instability, right ankle; S91.001A Unspecified open wound, right ankle, initial encounter; M21.171 Varus deformity, not elsewhere classified, right ankle; G25.81 Restless legs syndrome; E78.5 Hyperlipidemia, unspecified; M81.0 Age-related osteoporosis without current pathological fracture; I25.10 Atherosclerotic heart disease of native coronary artery without angina pectoris; E55.9 Vitamin D deficiency, unspecified; D50.9 Iron deficiency anemia, unspecified; E11.51 Type 2 diabetes mellitus with diabetic peripheral angiopathy without gangrene; E11.40 Type 2 diabetes mellitus with diabetic neuropathy, unspecified; B95.8 Unspecified staphylococcus as the cause of diseases classified elsewhere; B96.5 Pseudomonas (aeruginosa) (mallei) (pseudomallei) as the cause of diseases classified elsewhere; Z79.4 Long term (current) use of insulin; Z48.89 Encounter for other specified surgical aftercare; Z79.899 Other long term (current) drug therapy; Z68.20 Body mass index [BMI] 20.0-20.9, adult; X58.XXXA Exposure to other specified factors, initial encounter; Y93.89 Activity, other specified; Y92.89 Other specified places as the place of occurrence of the external cause; Y99.8 Other external cause status

== ENCOUNTER 2021-01-22 11:00 | Inpatient (IN) | payer MEDICARE ==
[~2021-01-22] VITALS: Ht 177.8 cm; Wt 68.4 kg
[2021-01-22] VITALS (7 sets, daily range): BP systolic 126–161; BP diastolic 55–74
[~2021-01-22 11:00] MED LIST changes: +ASPIRIN CHEWABL81 MG PO; +BYDUREON B2 MG/0.85 SQ; +EXELON1 EAC1 TD; +FAMOTIDINE40 MG PO; +GABAPENTIN600 MG PO; +HYDROCODON-ACE1 EACH PO; +INVANZ1 GM/50 ML IV; +JARDIANCE25 MG PO; +MEMANTINE HCL5 MG PO; +MIRALAX POWDER17 G1 PO; +PROTONIX TR40 M1 PO; +TRESIBA100 UNIT/1 SQ; +XARELTO10 MG PO; +ZYVOX600 MG PO
[2021-01-22 11:36] LABS: BASO % 0.7 % (0.0-1.0); EOS # 0.1 10*3/uL (0.0-0.4); EOS % 2.4 % (1.0-4.0); HEMATOCRIT 27.7 % (42.0-52.0); LYMPH # 0.5 10*3/uL (1.3-4.4); LYMPH % 10.4 % (27.0-41.0); MEAN CELL VOLUME 85.5 fl (80.0-94.0); MEAN CORPUSCULAR HGB 25.3 pg (27.0-31.0); MEAN CORPUSCULAR HGB CONC 29.6 g/dl (33.0-37.0); MEAN PLATELET VOLUME 10.7 fl (9.6-12.3); MONO # 0.3 10*3/uL (0.1-1.0); MONO % 5.9 % (3.0-9.0); NEUT # 3.7 10*3/uL (2.3-7.9); NEUT % 80.4 % (47.0-73.0); PLATELET COUNT AUTOMATED 226 10*3/uL (130-400); RED BLOOD COUNT 3.24 10*6/uL (4.50-5.90); RED CELL DISTRI WIDTH 19.7 % (0-14.5); WHITE BLOOD COUNT 4.6 10*3/uL (4.8-10.8)
[2021-01-22 11:36] LABS: BILIRUBIN Negative (Negative); BLOOD Negative (Negative); CLARITY Clear (Clear); COLOR Yellow (Yellow); GLUCOSE 2+ (Negative); KETONE Negative (Negative); LEUKO ESTERASE Negative (Negative); NITRITE Negative (Negative); PH 6.5 (4.5-8.0); SPECIFIC GRAVITY 1.015 (1.001-1.030)
[2021-01-22 11:52] LABS: ALBUMIN 2.5 gm/dl (3.1-4.5); ALKALINE PHOSPHATASE 146 U/L (45-117); BUN 33 mg/dl (7-24); CHLORIDE 108 mmol/L (98-107); CREATININE 1.05 mg/dL (0.70-1.30); POTASSIUM 4.4 mmol/L (3.5-5.1); SGOT/AST 20 IU/L (3-35); SGPT/ALT 28 U/L (12-78); SODIUM 139 mmol/L (136-145)
[2021-01-22 11:57] LABS: TROPONIN I < 0.015 ng/ml (<0.045)
[2021-01-22 11:57] LABS: BACTERIA TRACE; WBC 0-2 wbc/hpf (0-5)
[2021-01-22] MEDS ORDERED: ROPINIROLE HYDRO3 MG PO (18:05)
[2021-01-22] MEDS ORDERED: IRON325 M3 PO (18:06)
[2021-01-23] VITALS: BP 115/44
[2021-01-23 06:58] LABS: BASO % 0.3 % (0.0-1.0); EOS # 0.2 10*3/uL (0.0-0.4); EOS % 2.2 % (1.0-4.0); LYMPH # 0.6 10*3/uL (1.3-4.4); LYMPH % 9.2 % (27.0-41.0); MEAN CELL VOLUME 85.9 fl (80.0-94.0); MEAN CORPUSCULAR HGB 24.8 pg (27.0-31.0); MEAN CORPUSCULAR HGB CONC 28.9 g/dl (33.0-37.0); MEAN PLATELET VOLUME 10.4 fl (9.6-12.3); MONO # 0.3 10*3/uL (0.1-1.0); MONO % 4.6 % (3.0-9.0); NEUT # 5.8 10*3/uL (2.3-7.9); NEUT % 83.4 % (47.0-73.0); PLATELET COUNT AUTOMATED 225 10*3/uL (130-400); RED BLOOD COUNT 3.26 10*6/uL (4.50-5.90); RED CELL DISTRI WIDTH 19.7 % (0-14.5)
[2021-01-23 07:13] LABS: ALBUMIN 2.6 gm/dl (3.1-4.5); CHLORIDE 110 mmol/L (98-107); POTASSIUM 3.8 mmol/L (3.5-5.1); SGOT/AST 20 IU/L (3-35); SODIUM 144 mmol/L (136-145); TOTAL PROTEIN 5.8 gm/dL (6.4-8.2)
[2021-01-23 07:16] LABS: ALKALINE PHOSPHATASE 146 U/L (45-117); BUN 32 mg/dl (7-24); CREATININE 0.93 mg/dL (0.70-1.30); SGPT/ALT 26 U/L (12-78)
[2021-01-23 08:00] VITALS: BP 91/72
[2021-01-23 12:00] VITALS: BP 137/50
[2021-01-23 16:00] VITALS: BP 135/55
[2021-01-23 20:00] VITALS: BP 163/87
[2021-01-24] VITALS (10 sets, daily range): BP systolic 112–162; BP diastolic 62–90
[2021-01-24 06:04] LABS: ALBUMIN 2.5 gm/dl (3.1-4.5); ALKALINE PHOSPHATASE 143 U/L (45-117); BUN 29 mg/dl (7-24); CHLORIDE 113 mmol/L (98-107); CREATININE 0.92 mg/dL (0.70-1.30); POTASSIUM 4.1 mmol/L (3.5-5.1); SGOT/AST 21 IU/L (3-35); SGPT/ALT 25 U/L (12-78); SODIUM 141 mmol/L (136-145); TOTAL PROTEIN 5.8 gm/dL (6.4-8.2)
[2021-01-24 06:12] LABS: BASO % 0.5 % (0.0-1.0); EOS # 0.1 10*3/uL (0.0-0.4); EOS % 1.8 % (1.0-4.0); HEMATOCRIT 23.9 % (42.0-52.0); LYMPH # 0.4 10*3/uL (1.3-4.4); LYMPH % 5.7 % (27.0-41.0); MEAN CELL VOLUME 85.1 fl (80.0-94.0); MEAN CORPUSCULAR HGB 24.9 pg (27.0-31.0); MEAN CORPUSCULAR HGB CONC 29.3 g/dl (33.0-37.0); MEAN PLATELET VOLUME 10.6 fl (9.6-12.3); MONO # 0.3 10*3/uL (0.1-1.0); MONO % 4.3 % (3.0-9.0); NEUT # 6.7 10*3/uL (2.3-7.9); NEUT % 87.4 % (47.0-73.0); PLATELET COUNT AUTOMATED 203 10*3/uL (130-400); RED BLOOD COUNT 2.81 10*6/uL (4.50-5.90); RED CELL DISTRI WIDTH 19.9 % (0-14.5); WHITE BLOOD COUNT 7.7 10*3/uL (4.8-10.8)
[2021-01-24 18:32] LABS: BASO % 0.3 % (0.0-1.0); EOS % 0.3 % (1.0-4.0); HEMATOCRIT 24.1 % (42.0-52.0); LYMPH # 0.4 10*3/uL (1.3-4.4); LYMPH % 6.4 % (27.0-41.0); MEAN CELL VOLUME 85.5 fl (80.0-94.0); MEAN CORPUSCULAR HGB 26.2 pg (27.0-31.0); MEAN CORPUSCULAR HGB CONC 30.7 g/dl (33.0-37.0); MEAN PLATELET VOLUME 11.1 fl (9.6-12.3); MONO # 0.2 10*3/uL (0.1-1.0); MONO % 2.9 % (3.0-9.0); NEUT # 5.2 10*3/uL (2.3-7.9); NEUT % 89.9 % (47.0-73.0); PLATELET COUNT AUTOMATED 154 10*3/uL (130-400); RED BLOOD COUNT 2.82 10*6/uL (4.50-5.90); RED CELL DISTRI WIDTH 18.6 % (0-14.5); WHITE BLOOD COUNT 5.8 10*3/uL (4.8-10.8)
[2021-01-25 00:09] VITALS: BP 161/83
[2021-01-25 06:14] LABS: BUN 34 mg/dl (7-24); CHLORIDE 114 mmol/L (98-107); CREATININE 0.91 mg/dL (0.70-1.30); POTASSIUM 3.7 mmol/L (3.5-5.1); SODIUM 144 mmol/L (136-145)
[2021-01-25 06:16] LABS: BASO % 0.7 % (0.0-1.0); EOS # 0.1 10*3/uL (0.0-0.4); EOS % 1.5 % (1.0-4.0); HEMATOCRIT 26.1 % (42.0-52.0); LYMPH # 0.5 10*3/uL (1.3-4.4); LYMPH % 11.5 % (27.0-41.0); MEAN CELL VOLUME 85.6 fl (80.0-94.0); MEAN CORPUSCULAR HGB 25.9 pg (27.0-31.0); MEAN CORPUSCULAR HGB CONC 30.3 g/dl (33.0-37.0); MEAN PLATELET VOLUME 10.4 fl (9.6-12.3); MONO # 0.4 10*3/uL (0.1-1.0); MONO % 8.2 % (3.0-9.0); NEUT # 3.5 10*3/uL (2.3-7.9); NEUT % 77.9 % (47.0-73.0); PLATELET COUNT AUTOMATED 169 10*3/uL (130-400); RED BLOOD COUNT 3.05 10*6/uL (4.50-5.90); RED CELL DISTRI WIDTH 18.9 % (0-14.5); WHITE BLOOD COUNT 4.5 10*3/uL (4.8-10.8)
[2021-01-25 08:00] VITALS: BP 125/62
[2021-01-25 12:00] VITALS: BP 138/67
[2021-01-25 16:00] VITALS: BP 152/65
[2021-01-25 20:00] VITALS: BP 148/72
[2021-01-26] VITALS (9 sets, daily range): BP systolic 95–160; BP diastolic 49–75
[2021-01-26 06:30] LABS: ALBUMIN 2.4 gm/dl (3.1-4.5); ALKALINE PHOSPHATASE 132 U/L (45-117); BUN 31 mg/dl (7-24); CHLORIDE 115 mmol/L (98-107); CREATININE 0.77 mg/dL (0.70-1.30); POTASSIUM 3.5 mmol/L (3.5-5.1); SGOT/AST 30 IU/L (3-35); SGPT/ALT 25 U/L (12-78); SODIUM 148 mmol/L (136-145); TOTAL PROTEIN 5.5 gm/dL (6.4-8.2)
[2021-01-26 06:31] LABS: BASO % 0.6 % (0.0-1.0); EOS # 0.4 10*3/uL (0.0-0.4); EOS % 6.2 % (1.0-4.0); HEMATOCRIT 25.4 % (42.0-52.0); LYMPH # 0.8 10*3/uL (1.3-4.4); LYMPH % 11.9 % (27.0-41.0); MEAN CELL VOLUME 86.4 fl (80.0-94.0); MEAN CORPUSCULAR HGB 26.2 pg (27.0-31.0); MEAN CORPUSCULAR HGB CONC 30.3 g/dl (33.0-37.0); MEAN PLATELET VOLUME 10.9 fl (9.6-12.3); MONO # 0.5 10*3/uL (0.1-1.0); MONO % 6.6 % (3.0-9.0); NEUT # 5.1 10*3/uL (2.3-7.9); NEUT % 74.4 % (47.0-73.0); PLATELET COUNT AUTOMATED 158 10*3/uL (130-400); RED BLOOD COUNT 2.94 10*6/uL (4.50-5.90); RED CELL DISTRI WIDTH 19.1 % (0-14.5); WHITE BLOOD COUNT 6.8 10*3/uL (4.8-10.8)
[2021-01-27] VITALS (13 sets, daily range): BP systolic 107–150; BP diastolic 37–852
[2021-01-27 06:14] LABS: BUN 27 mg/dl (7-24); CHLORIDE 117 mmol/L (98-107); CREATININE 0.76 mg/dL (0.70-1.30); POTASSIUM 3.2 mmol/L (3.5-5.1); SODIUM 147 mmol/L (136-145)
[2021-01-27 06:24] LABS: BASO % 0.5 % (0.0-1.0); EOS # 0.2 10*3/uL (0.0-0.4); EOS % 3.9 % (1.0-4.0); HEMATOCRIT 23.2 % (42.0-52.0); LYMPH # 0.6 10*3/uL (1.3-4.4); LYMPH % 14.5 % (27.0-41.0); MEAN CELL VOLUME 85.9 fl (80.0-94.0); MEAN CORPUSCULAR HGB 25.9 pg (27.0-31.0); MEAN CORPUSCULAR HGB CONC 30.2 g/dl (33.0-37.0); MEAN PLATELET VOLUME 11.6 fl (9.6-12.3); MONO # 0.5 10*3/uL (0.1-1.0); MONO % 10.8 % (3.0-9.0); NEUT % 70.1 % (47.0-73.0); PLATELET COUNT AUTOMATED 128 10*3/uL (130-400); RED CELL DISTRI WIDTH 19.4 % (0-14.5); WHITE BLOOD COUNT 4.3 10*3/uL (4.8-10.8)
[2021-01-27 22:15] LABS: BASO % 0.5 % (0.0-1.0); EOS # 0.2 10*3/uL (0.0-0.4); EOS % 3.2 % (1.0-4.0); HEMATOCRIT 27.4 % (42.0-52.0); LYMPH # 0.6 10*3/uL (1.3-4.4); LYMPH % 10.1 % (27.0-41.0); MEAN CELL VOLUME 85.9 fl (80.0-94.0); MEAN CORPUSCULAR HGB CONC 31.4 g/dl (33.0-37.0); MEAN PLATELET VOLUME 11.3 fl (9.6-12.3); MONO # 0.9 10*3/uL (0.1-1.0); MONO % 14.4 % (3.0-9.0); NEUT # 4.4 10*3/uL (2.3-7.9); NEUT % 71.6 % (47.0-73.0); PLATELET COUNT AUTOMATED 121 10*3/uL (130-400); RED BLOOD COUNT 3.19 10*6/uL (4.50-5.90); RED CELL DISTRI WIDTH 18.3 % (0-14.5); WHITE BLOOD COUNT 6.2 10*3/uL (4.8-10.8)
[2021-01-28] VITALS: BP 115/81
[2021-01-28 06:33] LABS: BASO % 0.5 % (0.0-1.0); EOS # 0.4 10*3/uL (0.0-0.4); EOS % 5.8 % (1.0-4.0); HEMATOCRIT 26.9 % (42.0-52.0); LYMPH # 0.7 10*3/uL (1.3-4.4); LYMPH % 9.5 % (27.0-41.0); MEAN CELL VOLUME 84.6 fl (80.0-94.0); MEAN PLATELET VOLUME 10.8 fl (9.6-12.3); MONO # 0.8 10*3/uL (0.1-1.0); NEUT # 5.4 10*3/uL (2.3-7.9); NEUT % 72.9 % (47.0-73.0); PLATELET COUNT AUTOMATED 138 10*3/uL (130-400); RED BLOOD COUNT 3.18 10*6/uL (4.50-5.90); RED CELL DISTRI WIDTH 18.4 % (0-14.5); WHITE BLOOD COUNT 7.5 10*3/uL (4.8-10.8)
[2021-01-28 06:47] LABS: BUN 24 mg/dl (7-24); CHLORIDE 114 mmol/L (98-107); CREATININE 0.85 mg/dL (0.70-1.30); POTASSIUM 3.4 mmol/L (3.5-5.1); SODIUM 148 mmol/L (136-145)
[2021-01-28 08:00] VITALS: BP 122/76
[2021-01-28 12:00] VITALS: BP 143/98
[2021-01-28 16:00] VITALS: BP 136/76
[2021-01-28 20:00] VITALS: BP 114/72
[2021-01-29] VITALS: BP 114/72
[2021-01-29 05:35] LABS: BUN 19 mg/dl (7-24); CHLORIDE 113 mmol/L (98-107); CREATININE 0.82 mg/dL (0.70-1.30); POTASSIUM 3.8 mmol/L (3.5-5.1); SODIUM 146 mmol/L (136-145)
[2021-01-29 06:22] LABS: BASO % 0.8 % (0.0-1.0); EOS # 0.3 10*3/uL (0.0-0.4); EOS % 6.5 % (1.0-4.0); HEMATOCRIT 24.7 % (42.0-52.0); LYMPH # 0.5 10*3/uL (1.3-4.4); LYMPH % 11.8 % (27.0-41.0); MEAN CELL VOLUME 86.1 fl (80.0-94.0); MEAN CORPUSCULAR HGB 26.5 pg (27.0-31.0); MEAN CORPUSCULAR HGB CONC 30.8 g/dl (33.0-37.0); MEAN PLATELET VOLUME 11.2 fl (9.6-12.3); MONO # 0.5 10*3/uL (0.1-1.0); MONO % 11.8 % (3.0-9.0); NEUT # 2.8 10*3/uL (2.3-7.9); NEUT % 68.8 % (47.0-73.0); PLATELET COUNT AUTOMATED 109 10*3/uL (130-400); RED BLOOD COUNT 2.87 10*6/uL (4.50-5.90); RED CELL DISTRI WIDTH 18.9 % (0-14.5)
[2021-01-29 08:00] VITALS: BP 169/78
[2021-01-29 12:00] VITALS: BP 164/71
[2021-01-29] MEDS ORDERED: VANCOMYCIN750 MG/152 IV ×2 (12:40→12:49)
[2021-01-29] MEDS ORDERED: ZYPREXA2.5 MG PO (12:49)
[2021-01-29] MEDS ORDERED: LOPRESSOR25 MG PO (12:49)
[2021-01-29] MEDS ORDERED: RIVASTIGMINE1 EACH T (12:49)
[2021-01-29] MEDS ORDERED: ZOSYN 4.54.5 GM/100 IV (12:49)
[2021-01-29] MEDS ORDERED: XARELTO10 MG PO (12:53)
[2021-01-29 15:56] VITALS: BP 151/58
== END 2021-01-29 15:30 | DRG 640 ==
LOC: ED 11:00 → EDHOLD 15:15 → 4E 15:15
PROVIDERS: Emergency Medicine; Family Medicine; Internal Medicine; Student in an Organized Health Care Education/Training Program; ADMIT Student in an Organized Health Care Education/Training Program; ATTEND Student in an Organized Health Care Education/Training Program
PROC: 30233N1 Transfusion of Nonautologous Red Blood Cells into Peripheral Vein, Percutaneous Approach (ICD-10-PCS; 2021-01-24)
PROC: 0DB78ZX Excision of Stomach, Pylorus, Via Natural or Artificial Opening Endoscopic, Diagnostic (ICD-10-PCS; principal; 2021-01-26)
PROC: 0DJD8ZZ Inspection of Lower Intestinal Tract, Via Natural or Artificial Opening Endoscopic (ICD-10-PCS; 2021-01-26)
DX: E86.0 Dehydration (principal); G92 Toxic encephalopathy; J96.01 Acute respiratory failure with hypoxia; E43 Unspecified severe protein-calorie malnutrition; J90 Pleural effusion, not elsewhere classified; I13.0 Hypertensive heart and chronic kidney disease with heart failure and stage 1 through stage 4 chronic kidney disease, or unspecified chronic kidney disease; M86.8X8 Other osteomyelitis, other site; Z20.822 Contact with and (suspected) exposure to COVID-19; Z96.651 Presence of right artificial knee joint; I50.9 Heart failure, unspecified; E11.22 Type 2 diabetes mellitus with diabetic chronic kidney disease; N18.30 Chronic kidney disease, stage 3 unspecified; I25.5 Ischemic cardiomyopathy; E11.40 Type 2 diabetes mellitus with diabetic neuropathy, unspecified; M81.0 Age-related osteoporosis without current pathological fracture; R41.0 Disorientation, unspecified; E78.5 Hyperlipidemia, unspecified; G25.81 Restless legs syndrome; E11.51 Type 2 diabetes mellitus with diabetic peripheral angiopathy without gangrene; D72.819 Decreased white blood cell count, unspecified; D64.9 Anemia, unspecified; E11.65 Type 2 diabetes mellitus with hyperglycemia; I25.10 Atherosclerotic heart disease of native coronary artery without angina pectoris; E55.9 Vitamin D deficiency, unspecified; F39 Unspecified mood [affective] disorder; F03.90 Unspecified dementia, unspecified severity, without behavioral disturbance, psychotic disturbance, mood disturbance, and anxiety; F41.9 Anxiety disorder, unspecified; S91.302A Unspecified open wound, left foot, initial encounter; S91.301A Unspecified open wound, right foot, initial encounter; K29.70 Gastritis, unspecified, without bleeding; S41.101A Unspecified open wound of right upper arm, initial encounter; E11.69 Type 2 diabetes mellitus with other specified complication; Z89.421 Acquired absence of other right toe(s); X58.XXXA Exposure to other specified factors, initial encounter; Z95.2 Presence of prosthetic heart valve; Z95.1 Presence of aortocoronary bypass graft; Z87.891 Personal history of nicotine dependence; Z80.1 Family history of malignant neoplasm of trachea, bronchus and lung; Z83.6 Family history of other diseases of the respiratory system; Y93.89 Activity, other specified; Y92.89 Other specified places as the place of occurrence of the external cause; Y99.8 Other external cause status; Z68.21 Body mass index [BMI] 21.0-21.9, adult

== ENCOUNTER 2021-02-07 07:14 | Inpatient (IN) | payer MEDICARE ==
[~2021-02-07] VITALS: Ht 177.8 cm; Wt 66.8 kg
[2021-02-07 07:14] VITALS: BP 126/78
[~2021-02-07 07:14] MED LIST changes: +IRON325 M3 PO; +LOPRESSOR25 MG PO; +RIVASTIGMINE1 EACH T; +VANCOMYCIN750 MG/152 IV; +ZOSYN 4.54.5 GM/100 IV; +ZYPREXA2.5 MG PO
[2021-02-07 07:47] VITALS: BP 136/82
[2021-02-07 07:48] LABS: BASO % 0.6 % (0.0-1.0); EOS # 0.2 10*3/uL (0.0-0.4); EOS % 2.5 % (1.0-4.0); HEMATOCRIT 29.1 % (42.0-52.0); LYMPH # 0.3 10*3/uL (1.3-4.4); LYMPH % 4.7 % (27.0-41.0); MEAN CELL VOLUME 91.8 fl (80.0-94.0); MEAN CORPUSCULAR HGB 26.8 pg (27.0-31.0); MEAN CORPUSCULAR HGB CONC 29.2 g/dl (33.0-37.0); MEAN PLATELET VOLUME 11.7 fl (9.6-12.3); MONO # 0.5 10*3/uL (0.1-1.0); MONO % 6.4 % (3.0-9.0); NEUT # 6.1 10*3/uL (2.3-7.9); NEUT % 85.5 % (47.0-73.0); PLATELET COUNT AUTOMATED 201 10*3/uL (130-400); RED BLOOD COUNT 3.17 10*6/uL (4.50-5.90); RED CELL DISTRI WIDTH 21.7 % (0-14.5); WHITE BLOOD COUNT 7.2 10*3/uL (4.8-10.8)
[2021-02-07 08:09] LABS: ALBUMIN 2.8 gm/dl (3.1-4.5); ALKALINE PHOSPHATASE 149 U/L (45-117); BUN 17 mg/dl (7-24); CHLORIDE 105 mmol/L (98-107); CREATININE 1.06 mg/dL (0.70-1.30); POTASSIUM 3.7 mmol/L (3.5-5.1); SGOT/AST 39 IU/L (3-35); SGPT/ALT 39 U/L (12-78); SODIUM 140 mmol/L (136-145); TOTAL PROTEIN 6.2 gm/dL (6.4-8.2)
[2021-02-07 08:10] LABS: TROPONIN I 0.018 ng/ml (<0.045)
[2021-02-07 08:39] LABS: BILIRUBIN Negative (Negative); BLOOD 2+ (Negative); CLARITY Clear (Clear); COLOR Yellow (Yellow); GLUCOSE 3+ (Negative); KETONE Negative (Negative); LEUKO ESTERASE Negative (Negative); NITRITE Negative (Negative); UROBILINOGEN 0.2 E.U./dl (0.0-1.0)
[2021-02-07 08:58] LABS: EPITHELIAL CELLS 0-2
[2021-02-07 08:59] LABS: RBC 51-100 rbc/hpf (0-2); WBC 0-2 wbc/hpf (0-5)
[2021-02-07 09:00] LABS: BACTERIA TRACE
[2021-02-07 09:04] VITALS: BP 148/87
[2021-02-07] MEDS ORDERED: VANCO-0.9%750 MG/150 IV (10:05)
[2021-02-07] MEDS ORDERED: EXELON1 EAC1 T (10:24)
[2021-02-07] MEDS ORDERED: LIPITOR10 MG PO (10:25)
[2021-02-07] MEDS ORDERED: HUMALOG100 UNIT/1 SC (10:32)
[2021-02-07] MEDS ORDERED: TYLENOL325 M1 PO (10:34)
[2021-02-07] MEDS ORDERED: ADVAIR 250/501 EA INH (10:36)
[2021-02-07] MEDS ORDERED: FLORASTOR250 MG PO (10:37)
[2021-02-07] MEDS ORDERED: LANTUS SOL100 UNIT/1 SC (10:43)
[2021-02-08 05:52] LABS: ALBUMIN 2.4 gm/dl (3.1-4.5); ALKALINE PHOSPHATASE 123 U/L (45-117); BUN 22 mg/dl (7-24); CHLORIDE 105 mmol/L (98-107); CREATININE 0.79 mg/dL (0.70-1.30); POTASSIUM 3.9 mmol/L (3.5-5.1); SGOT/AST 30 IU/L (3-35); SGPT/ALT 29 U/L (12-78); SODIUM 141 mmol/L (136-145); TOTAL PROTEIN 5.7 gm/dL (6.4-8.2)
[2021-02-08 06:08] LABS: BASO # 0.1 10*3/uL (0.0-0.1); BASO % 0.9 % (0.0-1.0); EOS # 0.2 10*3/uL (0.0-0.4); EOS % 3.4 % (1.0-4.0); HEMATOCRIT 25.6 % (42.0-52.0); LYMPH # 0.3 10*3/uL (1.3-4.4); LYMPH % 5.6 % (27.0-41.0); MEAN CELL VOLUME 92.4 fl (80.0-94.0); MEAN CORPUSCULAR HGB 27.4 pg (27.0-31.0); MEAN CORPUSCULAR HGB CONC 29.7 g/dl (33.0-37.0); MEAN PLATELET VOLUME 11.9 fl (9.6-12.3); MONO # 0.6 10*3/uL (0.1-1.0); MONO % 10.2 % (3.0-9.0); NEUT # 4.5 10*3/uL (2.3-7.9); NEUT % 79.5 % (47.0-73.0); PLATELET COUNT AUTOMATED 184 10*3/uL (130-400); RED BLOOD COUNT 2.77 10*6/uL (4.50-5.90); RED CELL DISTRI WIDTH 21.5 % (0-14.5); WHITE BLOOD COUNT 5.7 10*3/uL (4.8-10.8)
[2021-02-08 09:30] VITALS: BP 126/51
[2021-02-08 12:00] VITALS: BP 139/73
[2021-02-08 13:00] VITALS: BP 130/70
[2021-02-08 14:22] VITALS: BP 114/55
[2021-02-08 20:00] VITALS: BP 124/49
[2021-02-09] VITALS: BP 127/51
[2021-02-09 05:59] LABS: BUN 26 mg/dl (7-24); CHLORIDE 104 mmol/L (98-107); CREATININE 0.89 mg/dL (0.70-1.30); POTASSIUM 3.9 mmol/L (3.5-5.1); SODIUM 141 mmol/L (136-145)
[2021-02-09 06:15] LABS: BASO % 0.5 % (0.0-1.0); EOS # 0.2 10*3/uL (0.0-0.4); EOS % 3.8 % (1.0-4.0); HEMATOCRIT 24.8 % (42.0-52.0); LYMPH # 0.4 10*3/uL (1.3-4.4); MEAN CELL VOLUME 92.5 fl (80.0-94.0); MEAN CORPUSCULAR HGB 27.6 pg (27.0-31.0); MEAN CORPUSCULAR HGB CONC 29.8 g/dl (33.0-37.0); MEAN PLATELET VOLUME 11.7 fl (9.6-12.3); MONO # 0.6 10*3/uL (0.1-1.0); MONO % 8.8 % (3.0-9.0); NEUT # 5.2 10*3/uL (2.3-7.9); NEUT % 80.6 % (47.0-73.0); PLATELET COUNT AUTOMATED 199 10*3/uL (130-400); RED BLOOD COUNT 2.68 10*6/uL (4.50-5.90); RED CELL DISTRI WIDTH 21.8 % (0-14.5); WHITE BLOOD COUNT 6.4 10*3/uL (4.8-10.8)
[2021-02-09 08:00] VITALS: BP 140/66
[2021-02-09 16:00] VITALS: BP 152/86
[2021-02-09 20:00] VITALS: BP 150/81
[2021-02-10] VITALS: BP 121/48
[2021-02-10 06:06] LABS: BASO % 0.7 % (0.0-1.0); EOS # 0.3 10*3/uL (0.0-0.4); EOS % 4.5 % (1.0-4.0); HEMATOCRIT 26.8 % (42.0-52.0); LYMPH # 0.4 10*3/uL (1.3-4.4); LYMPH % 7.7 % (27.0-41.0); MEAN CELL VOLUME 92.4 fl (80.0-94.0); MEAN CORPUSCULAR HGB 27.2 pg (27.0-31.0); MEAN CORPUSCULAR HGB CONC 29.5 g/dl (33.0-37.0); MEAN PLATELET VOLUME 11.5 fl (9.6-12.3); MONO # 0.5 10*3/uL (0.1-1.0); MONO % 8.2 % (3.0-9.0); NEUT # 4.5 10*3/uL (2.3-7.9); NEUT % 78.7 % (47.0-73.0); PLATELET COUNT AUTOMATED 214 10*3/uL (130-400); RED CELL DISTRI WIDTH 21.8 % (0-14.5); WHITE BLOOD COUNT 5.7 10*3/uL (4.8-10.8)
[2021-02-10 06:24] LABS: ALBUMIN 2.6 gm/dl (3.1-4.5); BUN 24 mg/dl (7-24); CHLORIDE 104 mmol/L (98-107); CREATININE 0.86 mg/dL (0.70-1.30); POTASSIUM 3.6 mmol/L (3.5-5.1); SGOT/AST 55 IU/L (3-35); SGPT/ALT 43 U/L (12-78); SODIUM 141 mmol/L (136-145)
[2021-02-10 06:25] LABS: ALKALINE PHOSPHATASE 133 U/L (45-117)
[2021-02-10 08:00] VITALS: BP 150/70
[2021-02-10 11:18] LABS: BODY FLUID WBC 93 /uL
[2021-02-10 11:56] LABS: BF LYMPHOCYTES 49 %; BF MACROPHAGES 23 %; BF MESOTHELIALS 3 %; BF MONOCYTES 1 %; BF NEUTROPHILS 24 %
[2021-02-10 12:00] VITALS: BP 128/58; BP 128/84
[2021-02-10 16:00] VITALS: BP 92/41
[2021-02-10 20:00] VITALS: BP 114/48
[2021-02-11] VITALS: BP 107/46
[2021-02-11 06:00] LABS: BUN 23 mg/dl (7-24); CHLORIDE 107 mmol/L (98-107); CREATININE 0.77 mg/dL (0.70-1.30); SODIUM 143 mmol/L (136-145)
[2021-02-11 08:00] VITALS: BP 169/93
[2021-02-11 10:41] LABS: BODY FLUID WBC 119 /uL
[2021-02-11 11:24] LABS: BF LYMPHOCYTES 24 %; BF MACROPHAGES 43 %; BF MESOTHELIALS 14 %; BF NEUTROPHILS 19 %
[2021-02-11 12:00] VITALS: BP 134/58
[2021-02-11 16:00] VITALS: BP 87/41
[2021-02-11 16:30] VITALS: BP 96/38
[2021-02-11 20:00] VITALS: BP 106/42
[2021-02-12] VITALS: BP 87/40
[2021-02-12 00:05] VITALS: BP 98/40
[2021-02-12 06:00] VITALS: BP 114/48
[2021-02-12 06:27] LABS: BASO % 0.2 % (0.0-1.0); EOS # 0.3 10*3/uL (0.0-0.4); HEMATOCRIT 24.7 % (42.0-52.0); LYMPH # 0.3 10*3/uL (1.3-4.4); LYMPH % 5.9 % (27.0-41.0); MEAN CELL VOLUME 93.9 fl (80.0-94.0); MEAN CORPUSCULAR HGB 27.8 pg (27.0-31.0); MEAN CORPUSCULAR HGB CONC 29.6 g/dl (33.0-37.0); MEAN PLATELET VOLUME 10.8 fl (9.6-12.3); MONO # 0.5 10*3/uL (0.1-1.0); NEUT # 4.7 10*3/uL (2.3-7.9); NEUT % 80.6 % (47.0-73.0); PLATELET COUNT AUTOMATED 180 10*3/uL (130-400); RED BLOOD COUNT 2.63 10*6/uL (4.50-5.90); RED CELL DISTRI WIDTH 21.7 % (0-14.5); WHITE BLOOD COUNT 5.8 10*3/uL (4.8-10.8)
[2021-02-12 06:42] LABS: BUN 25 mg/dl (7-24); CHLORIDE 107 mmol/L (98-107); CREATININE 0.77 mg/dL (0.70-1.30); POTASSIUM 4.1 mmol/L (3.5-5.1); SODIUM 140 mmol/L (136-145)
[2021-02-12 10:08] LABS: ACID FAST SPEC PROCESSING Concentration (.)
[2021-02-12 12:00] VITALS: BP 135/53
[2021-02-12 16:00] VITALS: BP 107/38
[2021-02-12 20:00] VITALS: BP 109/54
[2021-02-13] VITALS: BP 108/59
[2021-02-13 06:00] VITALS: BP 118/60
[2021-02-13 06:38] LABS: BASO % 0.6 % (0.0-1.0); EOS # 0.4 10*3/uL (0.0-0.4); EOS % 7.7 % (1.0-4.0); HEMATOCRIT 24.9 % (42.0-52.0); LYMPH # 0.5 10*3/uL (1.3-4.4); LYMPH % 11.1 % (27.0-41.0); MEAN CELL VOLUME 94.3 fl (80.0-94.0); MEAN CORPUSCULAR HGB 27.3 pg (27.0-31.0); MEAN CORPUSCULAR HGB CONC 28.9 g/dl (33.0-37.0); MEAN PLATELET VOLUME 11.3 fl (9.6-12.3); MONO # 0.5 10*3/uL (0.1-1.0); NEUT # 3.3 10*3/uL (2.3-7.9); NEUT % 70.2 % (47.0-73.0); PLATELET COUNT AUTOMATED 208 10*3/uL (130-400); RED BLOOD COUNT 2.64 10*6/uL (4.50-5.90); RED CELL DISTRI WIDTH 21.7 % (0-14.5); WHITE BLOOD COUNT 4.7 10*3/uL (4.8-10.8)
[2021-02-13 08:00] VITALS: BP 144/63
[2021-02-13 12:00] VITALS: BP 109/48
[2021-02-13 16:00] VITALS: BP 124/56
[2021-02-13 20:00] VITALS: BP 126/54
[2021-02-14] VITALS: BP 101/64
[2021-02-14 06:30] LABS: BASO % 0.6 % (0.0-1.0); EOS # 0.4 10*3/uL (0.0-0.4); EOS % 7.1 % (1.0-4.0); HEMATOCRIT 28.2 % (42.0-52.0); LYMPH # 0.3 10*3/uL (1.3-4.4); LYMPH % 5.1 % (27.0-41.0); MEAN CELL VOLUME 94.6 fl (80.0-94.0); MEAN CORPUSCULAR HGB 27.5 pg (27.0-31.0); MEAN CORPUSCULAR HGB CONC 29.1 g/dl (33.0-37.0); MEAN PLATELET VOLUME 10.9 fl (9.6-12.3); MONO # 0.5 10*3/uL (0.1-1.0); MONO % 8.6 % (3.0-9.0); NEUT # 4.2 10*3/uL (2.3-7.9); NEUT % 78.4 % (47.0-73.0); PLATELET COUNT AUTOMATED 215 10*3/uL (130-400); RED BLOOD COUNT 2.98 10*6/uL (4.50-5.90); RED CELL DISTRI WIDTH 21.9 % (0-14.5); WHITE BLOOD COUNT 5.3 10*3/uL (4.8-10.8)
[2021-02-14 08:00] VITALS: BP 121/50
[2021-02-14 12:00] VITALS: BP 125/46
[2021-02-14 16:00] VITALS: BP 134/78
[2021-02-14 20:00] VITALS: BP 124/98
[2021-02-15] VITALS: BP 113/40
[2021-02-15 06:09] LABS: BUN 21 mg/dl (7-24); CHLORIDE 107 mmol/L (98-107); CREATININE 0.89 mg/dL (0.70-1.30); SODIUM 140 mmol/L (136-145)
[2021-02-15 06:11] LABS: BASO % 0.6 % (0.0-1.0); EOS # 0.2 10*3/uL (0.0-0.4); EOS % 4.3 % (1.0-4.0); HEMATOCRIT 27.8 % (42.0-52.0); LYMPH # 0.4 10*3/uL (1.3-4.4); LYMPH % 8.7 % (27.0-41.0); MEAN CELL VOLUME 94.9 fl (80.0-94.0); MEAN CORPUSCULAR HGB 27.6 pg (27.0-31.0); MEAN CORPUSCULAR HGB CONC 29.1 g/dl (33.0-37.0); MONO # 0.4 10*3/uL (0.1-1.0); MONO % 7.9 % (3.0-9.0); NEUT # 3.9 10*3/uL (2.3-7.9); NEUT % 78.3 % (47.0-73.0); PLATELET COUNT AUTOMATED 205 10*3/uL (130-400); RED BLOOD COUNT 2.93 10*6/uL (4.50-5.90); RED CELL DISTRI WIDTH 22.2 % (0-14.5); WHITE BLOOD COUNT 4.9 10*3/uL (4.8-10.8)
[2021-02-15 08:00] VITALS: BP 134/58
[2021-02-15 12:00] VITALS: BP 130/60
[2021-02-15 16:00] VITALS: BP 129/54
[2021-02-15 20:00] VITALS: BP 123/52
[2021-02-16] VITALS: BP 121/54
[2021-02-16 06:05] LABS: BASO % 0.4 % (0.0-1.0); EOS # 0.2 10*3/uL (0.0-0.4); HEMATOCRIT 26.2 % (42.0-52.0); LYMPH # 0.4 10*3/uL (1.3-4.4); LYMPH % 7.5 % (27.0-41.0); MEAN CELL VOLUME 95.3 fl (80.0-94.0); MEAN CORPUSCULAR HGB CONC 29.4 g/dl (33.0-37.0); MEAN PLATELET VOLUME 11.1 fl (9.6-12.3); MONO # 0.4 10*3/uL (0.1-1.0); MONO % 7.9 % (3.0-9.0); PLATELET COUNT AUTOMATED 204 10*3/uL (130-400); RED BLOOD COUNT 2.75 10*6/uL (4.50-5.90); RED CELL DISTRI WIDTH 21.9 % (0-14.5); WHITE BLOOD COUNT 4.9 10*3/uL (4.8-10.8)
[2021-02-16 06:09] LABS: BUN 22 mg/dl (7-24); CHLORIDE 111 mmol/L (98-107); CREATININE 0.79 mg/dL (0.70-1.30); POTASSIUM 4.3 mmol/L (3.5-5.1); SODIUM 142 mmol/L (136-145)
[2021-02-16 08:00] VITALS: BP 129/54
[2021-02-16 12:00] VITALS: BP 148/65
[2021-02-16 16:00] VITALS: BP 124/52
[2021-02-16 20:00] VITALS: BP 112/43; BP 124/521
[2021-02-17] VITALS: BP 90/69
[2021-02-17 08:00] VITALS: BP 144/63
[2021-02-17 12:00] VITALS: BP 132/79
[2021-02-17 16:00] VITALS: BP 157/62
[2021-02-17 20:00] VITALS: BP 76/57
[2021-02-18] VITALS: BP 117/60
[2021-02-18 08:00] VITALS: BP 129/59
[2021-02-18 12:00] VITALS: BP 144/61
[2021-02-18 16:00] VITALS: BP 127/49
[2021-02-18 20:00] VITALS: BP 119/64
[2021-02-19] VITALS: BP 97/59
[2021-02-19 08:00] VITALS: BP 131/51
[2021-02-19 12:00] VITALS: BP 132/54
[2021-02-19 16:00] VITALS: BP 107/51
[2021-02-19] MEDS ORDERED: FUROSEMIDE40 MG PO (16:22)
== END 2021-02-19 18:00 | DRG 291 ==
LOC: ED 07:14 → 4E 08:36 → EDHOLD 08:36 → 4E 12:28
PROVIDERS: Emergency Medicine; Internal Medicine; Internal Medicine Critical Care Medicine; ADMIT Internal Medicine; ATTEND Internal Medicine
PROC: 0W9B30Z Drainage of Left Pleural Cavity with Drainage Device, Percutaneous Approach (ICD-10-PCS; 2021-02-10)
PROC: 0W9930Z Drainage of Right Pleural Cavity with Drainage Device, Percutaneous Approach (ICD-10-PCS; principal; 2021-02-11)
DX: I13.0 Hypertensive heart and chronic kidney disease with heart failure and stage 1 through stage 4 chronic kidney disease, or unspecified chronic kidney disease (principal); I50.23 Acute on chronic systolic (congestive) heart failure; E43 Unspecified severe protein-calorie malnutrition; J96.90 Respiratory failure, unspecified, unspecified whether with hypoxia or hypercapnia; E87.2 Acidosis; M86.171 Other acute osteomyelitis, right ankle and foot; J91.8 Pleural effusion in other conditions classified elsewhere; M81.0 Age-related osteoporosis without current pathological fracture; Z20.822 Contact with and (suspected) exposure to COVID-19; N18.30 Chronic kidney disease, stage 3 unspecified; E11.22 Type 2 diabetes mellitus with diabetic chronic kidney disease; E11.51 Type 2 diabetes mellitus with diabetic peripheral angiopathy without gangrene; I25.5 Ischemic cardiomyopathy; E78.5 Hyperlipidemia, unspecified; Z96.651 Presence of right artificial knee joint; E11.65 Type 2 diabetes mellitus with hyperglycemia; G25.81 Restless legs syndrome; E55.9 Vitamin D deficiency, unspecified; E78.2 Mixed hyperlipidemia; E11.69 Type 2 diabetes mellitus with other specified complication; D64.9 Anemia, unspecified; R31.21 Asymptomatic microscopic hematuria; N06.9 Isolated proteinuria with unspecified morphologic lesion; L89.619 Pressure ulcer of right heel, unspecified stage; E11.42 Type 2 diabetes mellitus with diabetic polyneuropathy; S91.302A Unspecified open wound, left foot, initial encounter; R53.81 Other malaise; Z95.1 Presence of aortocoronary bypass graft; Z95.2 Presence of prosthetic heart valve; Z80.1 Family history of malignant neoplasm of trachea, bronchus and lung; Z83.6 Family history of other diseases of the respiratory system; Z79.4 Long term (current) use of insulin; X58.XXXA Exposure to other specified factors, initial encounter; Z86.73 Personal history of transient ischemic attack (TIA), and cerebral infarction without residual deficits; Y93.89 Activity, other specified; Y92.89 Other specified places as the place of occurrence of the external cause; Y99.8 Other external cause status; Z68.22 Body mass index [BMI] 22.0-22.9, adult

== ENCOUNTER 2021-03-02 11:43 | Inpatient (IN) | payer MEDICARE ==
[2021-03-02] VITALS (20 sets, daily range): BP systolic 93–157; BP diastolic 50–75
[~2021-03-02] VITALS: Ht 187.9 cm; Wt 63.7 kg
[~2021-03-02 11:43] MED LIST changes: +ADVAIR 250/501 EA INH; +EXELON1 EAC1 T; +FLORASTOR250 MG PO; +HUMALOG100 UNIT/1 SC; +LIPITOR10 MG PO; +VANCO-0.9%750 MG/150 IV
[2021-03-02 12:23] LABS: BASO % 0.3 % (0.0-1.0); EOS # 0.1 10*3/uL (0.0-0.4); EOS % 1.7 % (1.0-4.0); HEMATOCRIT 28.8 % (42.0-52.0); LYMPH # 0.8 10*3/uL (1.3-4.4); LYMPH % 14.6 % (27.0-41.0); MEAN CELL VOLUME 98.3 fl (80.0-94.0); MEAN CORPUSCULAR HGB CONC 28.5 g/dl (33.0-37.0); MEAN PLATELET VOLUME 10.8 fl (9.6-12.3); MONO # 0.5 10*3/uL (0.1-1.0); MONO % 8.5 % (3.0-9.0); NEUT # 4.2 10*3/uL (2.3-7.9); NEUT % 73.7 % (47.0-73.0); PLATELET COUNT AUTOMATED 279 10*3/uL (130-400); RED BLOOD COUNT 2.93 10*6/uL (4.50-5.90); RED CELL DISTRI WIDTH 17.3 % (0-14.5); WHITE BLOOD COUNT 5.8 10*3/uL (4.8-10.8)
[2021-03-02 12:41] LABS: ALBUMIN 2.3 gm/dl (3.1-4.5); ALKALINE PHOSPHATASE 139 U/L (45-117); BUN 36 mg/dl (7-24); CHLORIDE 104 mmol/L (98-107); CREATININE 1.24 mg/dL (0.70-1.30); POTASSIUM 4.5 mmol/L (3.5-5.1); SGOT/AST 42 IU/L (3-35); SGPT/ALT 43 U/L (12-78); SODIUM 138 mmol/L (136-145); TOTAL PROTEIN 5.9 gm/dL (6.4-8.2)
[2021-03-02 12:42] LABS: TROPONIN I 0.039 ng/ml (<0.045)
[2021-03-02 13:24] LABS: BILIRUBIN Negative (Negative); BLOOD Negative (Negative); CLARITY Clear (Clear); COLOR Yellow (Yellow); GLUCOSE 1+ (Negative); KETONE Negative (Negative); LEUKO ESTERASE Negative (Negative); NITRITE Negative (Negative); SPECIFIC GRAVITY 1.015 (1.001-1.030); UROBILINOGEN 0.2 E.U./dl (0.0-1.0)
[2021-03-02 13:31] LABS: RBC 0-2 rbc/hpf (0-2)
[2021-03-02 14:45] LABS: ABG BASE EXCESS 2.4 mmol/L (-2.0-2.0); ARTERIAL BLOOD GAS PH 7.348 (7.35-7.45); ARTERIAL BLOOD GAS PO2 115.9 (80-90)
[2021-03-03] VITALS (12 sets, daily range): BP systolic 110–143; BP diastolic 47–68
[2021-03-03 05:16] LABS: ALBUMIN 2.1 gm/dl (3.1-4.5); BUN 34 mg/dl (7-24); CHLORIDE 105 mmol/L (98-107); CREATININE 0.99 mg/dL (0.70-1.30); IRON 27 ug/dL (65-175); POTASSIUM 3.7 mmol/L (3.5-5.1); SGOT/AST 37 IU/L (3-35); SGPT/ALT 38 U/L (12-78); SODIUM 142 mmol/L (136-145); TOTAL IRON BINDING CAPACITY 276 ug/dl (250-450); TOTAL PROTEIN 5.2 gm/dL (6.4-8.2)
[2021-03-03 05:17] LABS: ALKALINE PHOSPHATASE 123 U/L (45-117)
[2021-03-03 05:21] LABS: TROPONIN I 0.127 ng/ml (<0.045)
[2021-03-03 06:21] LABS: ACT PARTIAL THROMBO TIME 25.1 SECONDS (20.0-32.1)
[2021-03-03 06:24] LABS: BASO % 0.5 % (0.0-1.0); EOS # 0.2 10*3/uL (0.0-0.4); EOS % 4.8 % (1.0-4.0); HEMATOCRIT 25.1 % (42.0-52.0); LYMPH # 0.4 10*3/uL (1.3-4.4); LYMPH % 9.7 % (27.0-41.0); MEAN CORPUSCULAR HGB 28.7 pg (27.0-31.0); MEAN CORPUSCULAR HGB CONC 30.3 g/dl (33.0-37.0); MEAN PLATELET VOLUME 11.6 fl (9.6-12.3); MONO # 0.3 10*3/uL (0.1-1.0); MONO % 8.4 % (3.0-9.0); NEUT % 76.3 % (47.0-73.0); PLATELET COUNT AUTOMATED 217 10*3/uL (130-400); RED BLOOD COUNT 2.65 10*6/uL (4.50-5.90); RED CELL DISTRI WIDTH 17.2 % (0-14.5); WHITE BLOOD COUNT 3.9 10*3/uL (4.8-10.8)
[2021-03-03 06:26] LABS: MEAN CELL VOLUME 94.7 fl (80.0-94.0)
[2021-03-03 08:22] LABS: ABG BASE EXCESS 6.5 mmol/L (-2.0-2.0); ARTERIAL BLOOD GAS PH 7.51 (7.35-7.45)
[2021-03-03 12:03] LABS: ABG BASE EXCESS 7.4 mmol/L (-2.0-2.0); ARTERIAL BLOOD GAS PH 7.514 (7.35-7.45); ARTERIAL BLOOD GAS PO2 77.2 (80-90)
[2021-03-03 17:59] LABS: ABG BASE EXCESS 7.3 mmol/L (-2.0-2.0); ARTERIAL BLOOD GAS PH 7.447 (7.35-7.45); ARTERIAL BLOOD GAS PO2 42.9 (80-90)
[2021-03-03 18:18] LABS: ABG BASE EXCESS 5.9 mmol/L (-2.0-2.0); ARTERIAL BLOOD GAS PH 7.482 (7.35-7.45); ARTERIAL BLOOD GAS PO2 73.5 (80-90)
[2021-03-04] VITALS: BP 139/62
[2021-03-04 04:00] VITALS: BP 131/58
[2021-03-04 06:05] LABS: BASO % 0.5 % (0.0-1.0); EOS # 0.1 10*3/uL (0.0-0.4); EOS % 1.9 % (1.0-4.0); HEMATOCRIT 25.5 % (42.0-52.0); LYMPH # 0.4 10*3/uL (1.3-4.4); LYMPH % 5.6 % (27.0-41.0); MEAN CELL VOLUME 94.8 fl (80.0-94.0); MEAN CORPUSCULAR HGB 28.6 pg (27.0-31.0); MEAN CORPUSCULAR HGB CONC 30.2 g/dl (33.0-37.0); MEAN PLATELET VOLUME 11.6 fl (9.6-12.3); MONO # 0.5 10*3/uL (0.1-1.0); MONO % 7.6 % (3.0-9.0); NEUT # 5.2 10*3/uL (2.3-7.9); NEUT % 83.9 % (47.0-73.0); PLATELET COUNT AUTOMATED 227 10*3/uL (130-400); RED BLOOD COUNT 2.69 10*6/uL (4.50-5.90); RED CELL DISTRI WIDTH 17.7 % (0-14.5); WHITE BLOOD COUNT 6.2 10*3/uL (4.8-10.8)
[2021-03-04 06:25] LABS: ALBUMIN 1.8 gm/dl (3.1-4.5); ALKALINE PHOSPHATASE 142 U/L (45-117); BUN 30 mg/dl (7-24); CHLORIDE 105 mmol/L (98-107); CREATININE 0.89 mg/dL (0.70-1.30); POTASSIUM 3.7 mmol/L (3.5-5.1); SGOT/AST 31 IU/L (3-35); SGPT/ALT 32 U/L (12-78); SODIUM 144 mmol/L (136-145)
[2021-03-04 06:29] LABS: TOTAL PROTEIN 5.3 gm/dL (6.4-8.2)
[2021-03-04 08:00] VITALS: BP 135/67
[2021-03-04 12:00] VITALS: BP 145/65
[2021-03-04 16:00] VITALS: BP 134/56
[2021-03-04 20:00] VITALS: BP 113/69
[2021-03-05] VITALS: BP 121/51
[2021-03-05 04:00] VITALS: BP 131/55
[2021-03-05 06:01] LABS: BASO % 0.7 % (0.0-1.0); EOS # 0.3 10*3/uL (0.0-0.4); EOS % 4.5 % (1.0-4.0); HEMATOCRIT 26.6 % (42.0-52.0); LYMPH # 0.5 10*3/uL (1.3-4.4); LYMPH % 8.1 % (27.0-41.0); MEAN CELL VOLUME 96.4 fl (80.0-94.0); MEAN CORPUSCULAR HGB 27.9 pg (27.0-31.0); MEAN CORPUSCULAR HGB CONC 28.9 g/dl (33.0-37.0); MEAN PLATELET VOLUME 11.3 fl (9.6-12.3); MONO # 0.6 10*3/uL (0.1-1.0); MONO % 9.1 % (3.0-9.0); NEUT # 4.7 10*3/uL (2.3-7.9); NEUT % 77.3 % (47.0-73.0); PLATELET COUNT AUTOMATED 250 10*3/uL (130-400); RED BLOOD COUNT 2.76 10*6/uL (4.50-5.90); RED CELL DISTRI WIDTH 17.8 % (0-14.5); WHITE BLOOD COUNT 6.1 10*3/uL (4.8-10.8)
[2021-03-05 06:21] LABS: ALBUMIN 1.8 gm/dl (3.1-4.5); ALKALINE PHOSPHATASE 151 U/L (45-117); BUN 24 mg/dl (7-24); CHLORIDE 105 mmol/L (98-107); CREATININE 0.93 mg/dL (0.70-1.30); POTASSIUM 3.4 mmol/L (3.5-5.1); SGOT/AST 27 IU/L (3-35); SGPT/ALT 30 U/L (12-78); SODIUM 142 mmol/L (136-145); TOTAL PROTEIN 5.3 gm/dL (6.4-8.2)
[2021-03-05 07:30] VITALS: BP 148/70
[2021-03-05 11:46] VITALS: BP 146/59
[2021-03-05 16:00] VITALS: BP 112/42
[2021-03-05 20:00] VITALS: BP 110/47
[2021-03-06] VITALS: BP 109/48
[2021-03-06 04:00] VITALS: BP 111/42
[2021-03-06 06:04] LABS: BASO % 0.5 % (0.0-1.0); EOS # 0.3 10*3/uL (0.0-0.4); LYMPH # 0.5 10*3/uL (1.3-4.4); LYMPH % 7.8 % (27.0-41.0); MEAN CELL VOLUME 97.1 fl (80.0-94.0); MEAN CORPUSCULAR HGB 28.8 pg (27.0-31.0); MEAN CORPUSCULAR HGB CONC 29.6 g/dl (33.0-37.0); MEAN PLATELET VOLUME 11.4 fl (9.6-12.3); MONO # 0.6 10*3/uL (0.1-1.0); MONO % 10.6 % (3.0-9.0); NEUT # 4.4 10*3/uL (2.3-7.9); NEUT % 75.8 % (47.0-73.0); PLATELET COUNT AUTOMATED 251 10*3/uL (130-400); RED BLOOD COUNT 2.78 10*6/uL (4.50-5.90); RED CELL DISTRI WIDTH 17.5 % (0-14.5); WHITE BLOOD COUNT 5.8 10*3/uL (4.8-10.8)
[2021-03-06 06:04] LABS: ALBUMIN 1.8 gm/dl (3.1-4.5); ALKALINE PHOSPHATASE 148 U/L (45-117); BUN 20 mg/dl (7-24); CHLORIDE 104 mmol/L (98-107); CREATININE 0.83 mg/dL (0.70-1.30); POTASSIUM 4.2 mmol/L (3.5-5.1); SGOT/AST 32 IU/L (3-35); SGPT/ALT 30 U/L (12-78); SODIUM 140 mmol/L (136-145); TOTAL PROTEIN 5.4 gm/dL (6.4-8.2)
[2021-03-06 12:00] VITALS: BP 115/45
[2021-03-06 20:00] VITALS: BP 138/56
[2021-03-07] VITALS: BP 134/81
[2021-03-07 06:58] LABS: BASO % 0.5 % (0.0-1.0); EOS # 0.4 10*3/uL (0.0-0.4); EOS % 6.7 % (1.0-4.0); HEMATOCRIT 27.7 % (42.0-52.0); LYMPH # 0.5 10*3/uL (1.3-4.4); LYMPH % 7.4 % (27.0-41.0); MEAN CELL VOLUME 95.5 fl (80.0-94.0); MEAN CORPUSCULAR HGB 27.9 pg (27.0-31.0); MEAN CORPUSCULAR HGB CONC 29.2 g/dl (33.0-37.0); MONO # 0.7 10*3/uL (0.1-1.0); MONO % 11.4 % (3.0-9.0); NEUT # 4.5 10*3/uL (2.3-7.9); NEUT % 73.7 % (47.0-73.0); PLATELET COUNT AUTOMATED 250 10*3/uL (130-400); RED CELL DISTRI WIDTH 17.2 % (0-14.5); WHITE BLOOD COUNT 6.1 10*3/uL (4.8-10.8)
[2021-03-07 07:32] LABS: ALKALINE PHOSPHATASE 152 U/L (45-117); BUN 21 mg/dl (7-24); CHLORIDE 100 mmol/L (98-107); POTASSIUM 4.1 mmol/L (3.5-5.1); SGOT/AST 33 IU/L (3-35); SGPT/ALT 30 U/L (12-78); SODIUM 139 mmol/L (136-145)
[2021-03-07 07:35] LABS: CREATININE 0.88 mg/dL (0.70-1.30); TOTAL PROTEIN 5.8 gm/dL (6.4-8.2)
[2021-03-07 08:00] VITALS: BP 157/62
[2021-03-07 12:00] VITALS: BP 140/56
[2021-03-07 16:00] VITALS: BP 123/91; BP 147/72
[2021-03-07 20:00] VITALS: BP 117/48
[2021-03-08] VITALS: BP 126/54
[2021-03-08 04:00] VITALS: BP 126/54
[2021-03-08 07:03] LABS: BASO % 0.5 % (0.0-1.0); EOS # 0.4 10*3/uL (0.0-0.4); EOS % 6.5 % (1.0-4.0); HEMATOCRIT 30.1 % (42.0-52.0); LYMPH # 0.4 10*3/uL (1.3-4.4); LYMPH % 6.9 % (27.0-41.0); MEAN CELL VOLUME 94.4 fl (80.0-94.0); MEAN CORPUSCULAR HGB 28.5 pg (27.0-31.0); MEAN CORPUSCULAR HGB CONC 30.2 g/dl (33.0-37.0); MEAN PLATELET VOLUME 11.4 fl (9.6-12.3); MONO # 0.6 10*3/uL (0.1-1.0); NEUT # 4.8 10*3/uL (2.3-7.9); NEUT % 76.9 % (47.0-73.0); PLATELET COUNT AUTOMATED 268 10*3/uL (130-400); RED BLOOD COUNT 3.19 10*6/uL (4.50-5.90); RED CELL DISTRI WIDTH 17.2 % (0-14.5); WHITE BLOOD COUNT 6.2 10*3/uL (4.8-10.8)
[2021-03-08 07:28] LABS: ALBUMIN 2.1 gm/dl (3.1-4.5); ALKALINE PHOSPHATASE 180 U/L (45-117); BUN 24 mg/dl (7-24); CHLORIDE 98 mmol/L (98-107); CREATININE 1.05 mg/dL (0.70-1.30); POTASSIUM 4.3 mmol/L (3.5-5.1); SGOT/AST 42 IU/L (3-35); SGPT/ALT 36 U/L (12-78); SODIUM 136 mmol/L (136-145); TOTAL PROTEIN 6.2 gm/dL (6.4-8.2)
[2021-03-08 08:00] VITALS: BP 142/57
[2021-03-08 12:00] VITALS: BP 109/58
[2021-03-08 16:00] VITALS: BP 135/69
[2021-03-08 20:00] VITALS: BP 147/55
[2021-03-09] VITALS: BP 128/82
[2021-03-09 06:51] LABS: BASO % 0.4 % (0.0-1.0); EOS # 0.3 10*3/uL (0.0-0.4); EOS % 6.4 % (1.0-4.0); HEMATOCRIT 29.1 % (42.0-52.0); LYMPH # 0.4 10*3/uL (1.3-4.4); LYMPH % 7.6 % (27.0-41.0); MEAN CELL VOLUME 94.2 fl (80.0-94.0); MEAN CORPUSCULAR HGB 28.5 pg (27.0-31.0); MEAN CORPUSCULAR HGB CONC 30.2 g/dl (33.0-37.0); MEAN PLATELET VOLUME 10.2 fl (9.6-12.3); MONO # 0.4 10*3/uL (0.1-1.0); MONO % 7.6 % (3.0-9.0); NEUT % 77.8 % (47.0-73.0); PLATELET COUNT AUTOMATED 266 10*3/uL (130-400); RED BLOOD COUNT 3.09 10*6/uL (4.50-5.90); RED CELL DISTRI WIDTH 16.8 % (0-14.5); WHITE BLOOD COUNT 5.2 10*3/uL (4.8-10.8)
[2021-03-09 07:10] LABS: ALBUMIN 2.1 gm/dl (3.1-4.5); ALKALINE PHOSPHATASE 177 U/L (45-117); BUN 23 mg/dl (7-24); CHLORIDE 99 mmol/L (98-107); CREATININE 1.14 mg/dL (0.70-1.30); POTASSIUM 3.5 mmol/L (3.5-5.1); SGOT/AST 39 IU/L (3-35); SGPT/ALT 35 U/L (12-78); SODIUM 136 mmol/L (136-145); TOTAL PROTEIN 6.1 gm/dL (6.4-8.2)
[2021-03-09 08:00] VITALS: BP 132/83
[2021-03-09 12:00] VITALS: BP 126/71
[2021-03-09 16:00] VITALS: BP 150/50
[2021-03-09 20:00] VITALS: BP 140/55
[2021-03-10] VITALS: BP 158/72
[2021-03-10 06:24] LABS: BUN 22 mg/dl (7-24); CHLORIDE 96 mmol/L (98-107); CREATININE 1.19 mg/dL (0.70-1.30); POTASSIUM 3.7 mmol/L (3.5-5.1); SODIUM 134 mmol/L (136-145)
[2021-03-10 08:00] VITALS: BP 116/52
[2021-03-10 12:00] VITALS: BP 120/46
[2021-03-10] MEDS ORDERED: FUROSEMIDE80 MG PO (12:59)
== END 2021-03-10 14:01 | disposition home health service (06) | DRG 208 ==
LOC: ED 11:43 → EDHOLD 12:47 → ICCU 12:47 → 4E 03-06 17:50
PROVIDERS: Emergency Medicine; Internal Medicine; Internal Medicine Critical Care Medicine; Internal Medicine Hematology & Oncology; Social Worker Clinical; Student in an Organized Health Care Education/Training Program; ADMIT Internal Medicine; ATTEND Internal Medicine
PROC: 5A1935Z Respiratory Ventilation, Less than 24 Consecutive Hours (ICD-10-PCS; principal; 2021-03-02)
PROC: 0BH17EZ Insertion of Endotracheal Airway into Trachea, Via Natural or Artificial Opening (ICD-10-PCS; 2021-03-02)
PROC: 0W9930Z Drainage of Right Pleural Cavity with Drainage Device, Percutaneous Approach (ICD-10-PCS; 2021-03-04)
PROC: 0W9B30Z Drainage of Left Pleural Cavity with Drainage Device, Percutaneous Approach (ICD-10-PCS; 2021-03-05)
PROC: 5A09357 Assistance with Respiratory Ventilation, Less than 24 Consecutive Hours, Continuous Positive Airway Pressure (ICD-10-PCS; 2021-03-07)
DX: J96.01 Acute respiratory failure with hypoxia (principal); E43 Unspecified severe protein-calorie malnutrition; I50.33 Acute on chronic diastolic (congestive) heart failure; I21.4 Non-ST elevation (NSTEMI) myocardial infarction; I13.0 Hypertensive heart and chronic kidney disease with heart failure and stage 1 through stage 4 chronic kidney disease, or unspecified chronic kidney disease; E87.2 Acidosis; M86.8X6 Other osteomyelitis, lower leg; Z68.1 Body mass index [BMI] 19.9 or less, adult; J91.8 Pleural effusion in other conditions classified elsewhere; D61.818 Other pancytopenia; J98.11 Atelectasis; E87.3 Alkalosis; Z20.822 Contact with and (suspected) exposure to COVID-19; I25.5 Ischemic cardiomyopathy; E11.22 Type 2 diabetes mellitus with diabetic chronic kidney disease; E11.65 Type 2 diabetes mellitus with hyperglycemia; N18.30 Chronic kidney disease, stage 3 unspecified; Z79.4 Long term (current) use of insulin; D53.9 Nutritional anemia, unspecified; E83.51 Hypocalcemia; E83.41 Hypermagnesemia; R74.01 Elevation of levels of liver transaminase levels; E11.69 Type 2 diabetes mellitus with other specified complication; E11.621 Type 2 diabetes mellitus with foot ulcer; L97.519 Non-pressure chronic ulcer of other part of right foot with unspecified severity; E11.51 Type 2 diabetes mellitus with diabetic peripheral angiopathy without gangrene; G25.81 Restless legs syndrome; E11.42 Type 2 diabetes mellitus with diabetic polyneuropathy; I25.10 Atherosclerotic heart disease of native coronary artery without angina pectoris; E78.5 Hyperlipidemia, unspecified; Z96.651 Presence of right artificial knee joint; Z95.1 Presence of aortocoronary bypass graft; Z80.1 Family history of malignant neoplasm of trachea, bronchus and lung; Z79.1 Long term (current) use of non-steroidal anti-inflammatories (NSAID); Z79.82 Long term (current) use of aspirin; Z79.899 Other long term (current) drug therapy

== ENCOUNTER 2021-03-28 12:02 | Emergency (ER) | payer MEDICARE ==
[~2021-03-28] VITALS: Ht 177.8 cm; Wt 63.5 kg
[~2021-03-28 12:02] MED LIST changes: +FUROSEMIDE80 MG PO
[2021-04-08] MEDS ORDERED: XARELTO10 MG PO (08:26)
[2021-04-08] MEDS ORDERED: TRAMADOL HCL50 MG PO (08:26)
[2021-04-08] MEDS ORDERED: CLINDAMYCIN PHO50 GM PO (08:26)
[2021-04-08] MEDS ORDERED: CLEOCIN HCL300 MG PO (08:32)
== END 2021-03-28 17:26 | disposition left against medical advice (07) ==
LOC: ED 12:02
DX: T85.698A Other mechanical complication of other specified internal prosthetic devices, implants and grafts, initial encounter (principal); Z53.21 Procedure and treatment not carried out due to patient leaving prior to being seen by health care provider

== ENCOUNTER → 2021-04-08 | Day surgery (SDC) | payer MEDICARE ==
[~2021-04-08] VITALS: Ht 177.8 cm; Wt 68.0 kg
[~2021-04-08] MED LIST changes: +CLINDAMYCIN PHO50 GM PO; +TRAMADOL HCL50 MG PO
[2021-04-08 07:04] VITALS: BP 146/64
[2021-04-08 08:10] VITALS: BP 105/49
[2021-04-08 08:25] VITALS: BP 102/48
[2021-04-08 08:40] VITALS: BP 110/48
[2021-04-09 11:07] LABS: ACID FAST SPEC PROCESSING Tissue Grinding (.)
== END | disposition home or self-care (01) ==
LOC: SDC 04-03 12:30
PROVIDERS: ATTEND Podiatrist
DX: M86.172 Other acute osteomyelitis, left ankle and foot (principal); M86.671 Other chronic osteomyelitis, right ankle and foot; K21.9 Gastro-esophageal reflux disease without esophagitis; E78.00 Pure hypercholesterolemia, unspecified; I25.10 Atherosclerotic heart disease of native coronary artery without angina pectoris; M10.9 Gout, unspecified; J44.9 Chronic obstructive pulmonary disease, unspecified; I11.0 Hypertensive heart disease with heart failure; I50.9 Heart failure, unspecified; Z95.1 Presence of aortocoronary bypass graft; Z89.421 Acquired absence of other right toe(s); Z98.890 Other specified postprocedural states; Z79.899 Other long term (current) drug therapy; Z20.822 Contact with and (suspected) exposure to COVID-19

== ENCOUNTER 2021-04-12 12:11 | Emergency (ER) | payer MEDICARE ==
[2021-04-12 12:42] LABS: BASO % 0.5 % (0.0-1.0); EOS # 0.2 10*3/uL (0.0-0.4); HEMATOCRIT 30.7 % (42.0-52.0); LYMPH # 0.5 10*3/uL (1.3-4.4); LYMPH % 6.5 % (27.0-41.0); MEAN CORPUSCULAR HGB 27.8 pg (27.0-31.0); MEAN CORPUSCULAR HGB CONC 31.6 g/dl (33.0-37.0); MEAN PLATELET VOLUME 9.9 fl (9.6-12.3); MONO # 0.6 10*3/uL (0.1-1.0); MONO % 8.5 % (3.0-9.0); NEUT # 6.1 10*3/uL (2.3-7.9); NEUT % 82.2 % (47.0-73.0); PLATELET COUNT AUTOMATED 345 10*3/uL (130-400); RED BLOOD COUNT 3.49 10*6/uL (4.50-5.90); RED CELL DISTRI WIDTH 13.6 % (0-14.5); WHITE BLOOD COUNT 7.4 10*3/uL (4.8-10.8)
[2021-04-12 12:59] LABS: ALBUMIN 2.4 gm/dl (3.1-4.5); ALKALINE PHOSPHATASE 166 U/L (45-117); BUN 50 mg/dl (7-24); CHLORIDE 97 mmol/L (98-107); CREATININE 1.42 mg/dL (0.70-1.30); POTASSIUM 4.1 mmol/L (3.5-5.1); SGOT/AST 24 IU/L (3-35); SGPT/ALT 24 U/L (12-78); SODIUM 133 mmol/L (136-145); TOTAL PROTEIN 6.5 gm/dL (6.4-8.2)
[2021-04-12 13:06] LABS: TROPONIN I < 0.015 ng/ml (<0.045)
[2021-04-17] MEDS ORDERED: SIMVASTATIN10 MG PO (07:30)
[2021-04-17] MEDS ORDERED: GABAPENTIN600 MG PO (07:32)
[2021-04-19] MEDS ORDERED: Lasix80 MG PO (11:59)
[2021-04-20] MEDS ORDERED: Lasix80 MG PO (13:45)
[2021-04-20] MEDS ORDERED: MASON NATURAL325 MG PO (13:45)
== END 2021-04-12 16:06 | disposition home or self-care (01) ==
LOC: ED 12:11
PROVIDERS: Student in an Organized Health Care Education/Training Program
DX: N19 Unspecified kidney failure (principal); E86.0 Dehydration; Z79.899 Other long term (current) drug therapy; Z87.891 Personal history of nicotine dependence

== ENCOUNTER 2021-04-24 10:52 | Emergency (ER) | payer MEDICARE ==
[~2021-04-24] VITALS: Ht 177.8 cm; Wt 63.5 kg
[~2021-04-24 10:52] MED LIST changes: +Lasix80 MG PO; +MASON NATURAL325 MG PO
[2021-04-24 11:45] LABS: BASO % 0.6 % (0.0-1.0); EOS # 0.7 10*3/uL (0.0-0.4); EOS % 10.1 % (1.0-4.0); HEMATOCRIT 31.4 % (42.0-52.0); LYMPH # 0.5 10*3/uL (1.3-4.4); LYMPH % 6.9 % (27.0-41.0); MEAN CELL VOLUME 88.5 fl (80.0-94.0); MEAN CORPUSCULAR HGB 27.3 pg (27.0-31.0); MEAN CORPUSCULAR HGB CONC 30.9 g/dl (33.0-37.0); MEAN PLATELET VOLUME 9.8 fl (9.6-12.3); MONO # 0.5 10*3/uL (0.1-1.0); MONO % 7.1 % (3.0-9.0); NEUT # 5.2 10*3/uL (2.3-7.9); PLATELET COUNT AUTOMATED 325 10*3/uL (130-400); RED BLOOD COUNT 3.55 10*6/uL (4.50-5.90); RED CELL DISTRI WIDTH 13.9 % (0-14.5)
[2021-04-24 11:57] LABS: ACT PARTIAL THROMBO TIME 26.8 SECONDS (20.0-32.1); INTERNATIONAL NORM RATIO 0.9 (2.0-3.5)
[2021-04-24 12:02] LABS: ALBUMIN 2.6 gm/dl (3.1-4.5); ALKALINE PHOSPHATASE 171 U/L (45-117); BUN 39 mg/dl (7-24); CHLORIDE 100 mmol/L (98-107); POTASSIUM 4.2 mmol/L (3.5-5.1); SGOT/AST 41 IU/L (3-35); SGPT/ALT 37 U/L (12-78); SODIUM 139 mmol/L (136-145); TOTAL PROTEIN 6.9 gm/dL (6.4-8.2)
== END 2021-04-24 14:49 | disposition home or self-care (01) ==
LOC: ED 10:52
PROVIDERS: Emergency Medicine
DX: S91.301A Unspecified open wound, right foot, initial encounter (principal); Z79.899 Other long term (current) drug therapy; Z79.82 Long term (current) use of aspirin; Z87.891 Personal history of nicotine dependence; Z48.01 Encounter for change or removal of surgical wound dressing; X58.XXXA Exposure to other specified factors, initial encounter; Y93.89 Activity, other specified; Y92.89 Other specified places as the place of occurrence of the external cause; Y99.8 Other external cause status

== ENCOUNTER → 2021-10-02 | Outpatient (CLI) | payer MEDICARE | END | disposition home or self-care (01) | LOC: CARD 08:43 | PROVIDERS: ATTEND Internal Medicine Cardiovascular Disease | DX: I07.1 Rheumatic tricuspid insufficiency (principal); I25.119 Atherosclerotic heart disease of native coronary artery with unspecified angina pectoris; I25.10 Atherosclerotic heart disease of native coronary artery without angina pectoris; Z01.810 Encounter for preprocedural cardiovascular examination ==

== ENCOUNTER → 2021-10-05 | Outpatient (CLI) | payer MEDICARE | END | disposition home or self-care (01) | LOC: CARD 10-02 00:20 | PROVIDERS: ATTEND Internal Medicine Cardiovascular Disease | DX: I11.9 Hypertensive heart disease without heart failure (principal); I25.9 Chronic ischemic heart disease, unspecified; I34.0 Nonrheumatic mitral (valve) insufficiency; I25.810 Atherosclerosis of coronary artery bypass graft(s) without angina pectoris; E11.51 Type 2 diabetes mellitus with diabetic peripheral angiopathy without gangrene; E11.42 Type 2 diabetes mellitus with diabetic polyneuropathy; I73.9 Peripheral vascular disease, unspecified; T81.49XA Infection following a procedure, other surgical site, initial encounter; M86.179 Other acute osteomyelitis, unspecified ankle and foot; R07.89 Other chest pain; R94.31 Abnormal electrocardiogram [ECG] [EKG]; Z01.810 Encounter for preprocedural cardiovascular examination ==

== ENCOUNTER → 2021-10-09 | Outpatient (CLI) | payer MEDICARE ==
[2021-10-09 10:03] LABS: BASO % 0.5 % (0.0-1.0); EOS # 0.3 10*3/uL (0.0-0.4); EOS % 3.9 % (1.0-4.0); HEMATOCRIT 35.6 % (42.0-52.0); LYMPH # 0.4 10*3/uL (1.3-4.4); LYMPH % 5.6 % (27.0-41.0); MEAN CELL VOLUME 82.2 fl (80.0-94.0); MEAN CORPUSCULAR HGB 26.1 pg (27.0-31.0); MEAN CORPUSCULAR HGB CONC 31.7 g/dl (33.0-37.0); MEAN PLATELET VOLUME 10.9 fl (9.6-12.3); MONO # 0.6 10*3/uL (0.1-1.0); MONO % 8.9 % (3.0-9.0); NEUT # 5.2 10*3/uL (2.3-7.9); NEUT % 80.8 % (47.0-73.0); PLATELET COUNT AUTOMATED 224 10*3/uL (130-400); RED BLOOD COUNT 4.33 10*6/uL (4.50-5.90); RED CELL DISTRI WIDTH 14.7 % (0-14.5); WHITE BLOOD COUNT 6.4 10*3/uL (4.8-10.8)
[2021-10-09 10:25] LABS: ALKALINE PHOSPHATASE 186 U/L (45-117); BUN 52 mg/dl (7-24); CHLORIDE 99 mmol/L (98-107); CHOLESTEROL 144 mg/dL (<200); CREATININE 1.19 mg/dL (0.70-1.30); LDL CHOLESTEROL 70 mg/dL (9-159); POTASSIUM 4.9 mmol/L (3.5-5.1); SGOT/AST 15 IU/L (3-35); SGPT/ALT 29 U/L (12-78); SODIUM 133 mmol/L (136-145); TOTAL PROTEIN 7.6 gm/dL (6.4-8.2); TRIGLYCERIDES 83 mg/dl (<150)
== END | disposition home or self-care (01) ==
LOC: LAB 09:17
PROVIDERS: ATTEND Internal Medicine Cardiovascular Disease
DX: Z01.810 Encounter for preprocedural cardiovascular examination (principal); I10 Essential (primary) hypertension; I25.119 Atherosclerotic heart disease of native coronary artery with unspecified angina pectoris; I25.10 Atherosclerotic heart disease of native coronary artery without angina pectoris; I34.0 Nonrheumatic mitral (valve) insufficiency; R13.13 Dysphagia, pharyngeal phase; M86.179 Other acute osteomyelitis, unspecified ankle and foot; E11.42 Type 2 diabetes mellitus with diabetic polyneuropathy; E11.51 Type 2 diabetes mellitus with diabetic peripheral angiopathy without gangrene

== ENCOUNTER → 2021-12-02 | Outpatient (CLI) | payer MEDICARE ==
[2021-12-02 10:17] LABS: BASO % 0.4 % (0.0-1.0); EOS # 0.2 10*3/uL (0.0-0.4); EOS % 3.1 % (1.0-4.0); HEMATOCRIT 34.7 % (42.0-52.0); LYMPH # 0.5 10*3/uL (1.3-4.4); LYMPH % 6.6 % (27.0-41.0); MEAN CELL VOLUME 85.5 fl (80.0-94.0); MEAN CORPUSCULAR HGB 26.6 pg (27.0-31.0); MEAN CORPUSCULAR HGB CONC 31.1 g/dl (33.0-37.0); MEAN PLATELET VOLUME 9.4 fl (9.6-12.3); MONO # 0.6 10*3/uL (0.1-1.0); MONO % 8.5 % (3.0-9.0); NEUT # 5.5 10*3/uL (2.3-7.9); NEUT % 81.1 % (47.0-73.0); PLATELET COUNT AUTOMATED 303 10*3/uL (130-400); RED BLOOD COUNT 4.06 10*6/uL (4.50-5.90); RED CELL DISTRI WIDTH 14.2 % (0-14.5); WHITE BLOOD COUNT 6.8 10*3/uL (4.8-10.8)
[2021-12-02 10:29] LABS: IRON 28 ug/dL (65-175); TOTAL IRON BINDING CAPACITY 289 ug/dl (250-450)
== END | disposition home or self-care (01) ==
LOC: LAB 10:02
PROVIDERS: ATTEND Nurse Practitioner Family
DX: D50.0 Iron deficiency anemia secondary to blood loss (chronic) (principal)

== ENCOUNTER → 2021-12-25 | Outpatient (CLI) | payer MEDICARE ==
[2021-12-25 11:45] VITALS: BP 86/32
[2021-12-25 12:04] VITALS: BP 86/32
[2021-12-25 12:15] VITALS: BP 101/26
[2021-12-25 12:30] VITALS: BP 108/53
[2021-12-25 13:30] VITALS: BP 107/54
[2021-12-25 14:30] VITALS: BP 117/39
[2021-12-25 14:57] LABS: BASO % 0.3 % (0.0-1.0); EOS # 0.3 10*3/uL (0.0-0.4); EOS % 4.5 % (1.0-4.0); LYMPH # 0.4 10*3/uL (1.3-4.4); LYMPH % 7.2 % (27.0-41.0); MEAN CELL VOLUME 89.8 fl (80.0-94.0); MEAN CORPUSCULAR HGB 27.5 pg (27.0-31.0); MEAN CORPUSCULAR HGB CONC 30.7 g/dl (33.0-37.0); MONO # 0.5 10*3/uL (0.1-1.0); MONO % 7.7 % (3.0-9.0); NEUT # 4.8 10*3/uL (2.3-7.9); NEUT % 79.8 % (47.0-73.0); PLATELET COUNT AUTOMATED 246 10*3/uL (130-400); RED BLOOD COUNT 3.34 10*6/uL (4.50-5.90)
== END | disposition home or self-care (01) ==
LOC: TRNFUSION 10:00 → LAB 10:36
PROVIDERS: ATTEND Physician Assistant
DX: E11.9 Type 2 diabetes mellitus without complications (principal); I11.0 Hypertensive heart disease with heart failure; I50.9 Heart failure, unspecified; I25.10 Atherosclerotic heart disease of native coronary artery without angina pectoris; D50.9 Iron deficiency anemia, unspecified

== ENCOUNTER → 2022-01-06 | Outpatient (CLI) | payer MEDICARE ==
[2022-01-06 11:25] LABS: BASO % 0.5 % (0.0-1.0); EOS # 0.2 10*3/uL (0.0-0.4); EOS % 2.9 % (1.0-4.0); HEMATOCRIT 30.7 % (42.0-52.0); LYMPH # 0.5 10*3/uL (1.3-4.4); LYMPH % 7.2 % (27.0-41.0); MEAN CELL VOLUME 92.5 fl (80.0-94.0); MEAN CORPUSCULAR HGB 27.7 pg (27.0-31.0); MEAN PLATELET VOLUME 9.8 fl (9.6-12.3); MONO # 0.5 10*3/uL (0.1-1.0); MONO % 8.5 % (3.0-9.0); NEUT # 5.1 10*3/uL (2.3-7.9); NEUT % 80.6 % (47.0-73.0); PLATELET COUNT AUTOMATED 198 10*3/uL (130-400); RED BLOOD COUNT 3.32 10*6/uL (4.50-5.90); RED CELL DISTRI WIDTH 17.3 % (0-14.5); WHITE BLOOD COUNT 6.3 10*3/uL (4.8-10.8)
== END ==
LOC: LAB 10:59
PROVIDERS: ATTEND Nurse Practitioner Family
DX: D64.9 Anemia, unspecified (principal)

== ENCOUNTER 2022-01-18 10:56 | Emergency (ER) | payer MEDICARE ==
[~2022-01-18] VITALS: Wt 64.0 kg
[2022-01-18 12:32] LABS: BASO % 0.4 % (0.0-1.0); EOS # 0.1 10*3/uL (0.0-0.4); EOS % 0.6 % (1.0-4.0); HEMATOCRIT 34.4 % (42.0-52.0); LYMPH # 0.4 10*3/uL (1.3-4.4); LYMPH % 5.2 % (27.0-41.0); MEAN CELL VOLUME 88.7 fl (80.0-94.0); MEAN CORPUSCULAR HGB 27.3 pg (27.0-31.0); MEAN CORPUSCULAR HGB CONC 30.8 g/dl (33.0-37.0); MEAN PLATELET VOLUME 10.2 fl (9.6-12.3); MONO # 0.9 10*3/uL (0.1-1.0); MONO % 11.3 % (3.0-9.0); NEUT # 6.5 10*3/uL (2.3-7.9); NEUT % 82.2 % (47.0-73.0); PLATELET COUNT AUTOMATED 263 10*3/uL (130-400); RED BLOOD COUNT 3.88 10*6/uL (4.50-5.90); RED CELL DISTRI WIDTH 15.2 % (0-14.5); WHITE BLOOD COUNT 7.9 10*3/uL (4.8-10.8)
[2022-01-18 12:53] LABS: ALKALINE PHOSPHATASE 155 U/L (45-117); BUN 37 mg/dl (7-24); CHLORIDE 101 mmol/L (98-107); CREATININE 1.21 mg/dL (0.70-1.30); SGOT/AST 21 IU/L (3-35); SGPT/ALT 19 U/L (12-78); SODIUM 136 mmol/L (136-145); TOTAL PROTEIN 7.1 gm/dL (6.4-8.2)
[2022-01-18 15:14] LABS: BILIRUBIN Negative (Negative); BLOOD Negative (Negative); CLARITY Clear (Clear); COLOR Yellow (Yellow); GLUCOSE 1+ (Negative); KETONE Negative (Negative); LEUKO ESTERASE Negative (Negative); NITRITE Negative (Negative); SPECIFIC GRAVITY 1.015 (1.001-1.030); UROBILINOGEN 0.2 E.U./dl (0.0-1.0)
[2022-01-18 15:42] LABS: BACTERIA 1+; EPITHELIAL CELLS 0-2; RBC 0-2 rbc/hpf (0-2); WBC 0-2 wbc/hpf (0-5)
== END 2022-01-18 15:57 | disposition home or self-care (01) ==
LOC: ED 10:56
PROVIDERS: Physician Assistant
DX: R53.83 Other fatigue (principal); Z20.822 Contact with and (suspected) exposure to COVID-19; Z87.891 Personal history of nicotine dependence; Z95.1 Presence of aortocoronary bypass graft; Z98.890 Other specified postprocedural states; Z79.4 Long term (current) use of insulin; Z79.82 Long term (current) use of aspirin

== ENCOUNTER 2022-02-16 22:15 | Emergency (ER) | payer MEDICARE ==
[2022-02-16 23:29] LABS: BILIRUBIN Negative (Negative); BLOOD Negative (Negative); CLARITY Clear (Clear); COLOR Yellow (Yellow); GLUCOSE Negative (Negative); KETONE Negative (Negative); LEUKO ESTERASE Negative (Negative); NITRITE Negative (Negative); UROBILINOGEN 0.2 E.U./dl (0.0-1.0)
[2022-02-16 23:53] LABS: RBC 0-2 rbc/hpf (0-2); WBC 0-2 wbc/hpf (0-5)
[2022-02-17 00:11] LABS: BASO % 0.2 % (0.0-1.0); EOS % 0.5 % (1.0-4.0); LYMPH # 0.4 10*3/uL (1.3-4.4); LYMPH % 7.1 % (27.0-41.0); MEAN CELL VOLUME 84.6 fl (80.0-94.0); MEAN CORPUSCULAR HGB CONC 31.9 g/dl (33.0-37.0); MONO # 0.5 10*3/uL (0.1-1.0); MONO % 9.1 % (3.0-9.0); NEUT # 4.5 10*3/uL (2.3-7.9); NEUT % 82.9 % (47.0-73.0); PLATELET COUNT AUTOMATED 163 10*3/uL (130-400); RED BLOOD COUNT 3.19 10*6/uL (4.50-5.90); RED CELL DISTRI WIDTH 14.8 % (0-14.5); WHITE BLOOD COUNT 5.5 10*3/uL (4.8-10.8)
[2022-02-17 00:27] LABS: CREATININE 1.55 mg/dL (0.70-1.30); TOTAL PROTEIN 6.2 gm/dL (6.4-8.2)
== END 2022-02-17 02:04 | disposition home or self-care (01) ==
LOC: ED 22:15
PROVIDERS: Emergency Medicine
DX: R53.1 Weakness (principal); R30.9 Painful micturition, unspecified; E11.22 Type 2 diabetes mellitus with diabetic chronic kidney disease; I13.0 Hypertensive heart and chronic kidney disease with heart failure and stage 1 through stage 4 chronic kidney disease, or unspecified chronic kidney disease; N18.30 Chronic kidney disease, stage 3 unspecified; I50.9 Heart failure, unspecified; E11.51 Type 2 diabetes mellitus with diabetic peripheral angiopathy without gangrene; E78.5 Hyperlipidemia, unspecified; E11.40 Type 2 diabetes mellitus with diabetic neuropathy, unspecified; Z79.899 Other long term (current) drug therapy; Z79.82 Long term (current) use of aspirin; Z89.421 Acquired absence of other right toe(s); Z98.890 Other specified postprocedural states; Z96.651 Presence of right artificial knee joint; Z98.61 Coronary angioplasty status; Z87.891 Personal history of nicotine dependence

== ENCOUNTER → 2022-02-24 | Outpatient (CLI) | payer MEDICARE ==
[2022-02-24 11:35] LABS: EOS % 0.3 % (1.0-4.0); HEMATOCRIT 27.4 % (42.0-52.0); LYMPH # 0.4 10*3/uL (1.3-4.4); LYMPH % 12.1 % (27.0-41.0); MEAN CELL VOLUME 87.5 fl (80.0-94.0); MEAN CORPUSCULAR HGB 27.2 pg (27.0-31.0); MEAN PLATELET VOLUME 10.1 fl (9.6-12.3); MONO # 0.3 10*3/uL (0.1-1.0); MONO % 11.4 % (3.0-9.0); NEUT # 2.2 10*3/uL (2.3-7.9); NEUT % 75.5 % (47.0-73.0); PLATELET COUNT AUTOMATED 131 10*3/uL (130-400); RED BLOOD COUNT 3.13 10*6/uL (4.50-5.90); RED CELL DISTRI WIDTH 14.8 % (0-14.5)
== END ==
LOC: LAB 11:10
PROVIDERS: ATTEND Nurse Practitioner Family
DX: D50.9 Iron deficiency anemia, unspecified (principal)